=== PATIENT | female | born 1940 | race Caucasian/White ===

== ENCOUNTER 2020-06-28 14:52 | Emergency (ER) | payer MEDICARE, BC, SELFPAY ==
[2020-06-28 16:19] VITALS: BP 168/81; PULSE 85; RESP 16; O2SAT 97; BMI 27.3
[2020-06-28 16:35] VITALS: BP 171/87; PULSE 112; RESP 18; TEMP 36.5; O2SAT 97
--- NOTE | 2020-06-28 16:36 | CT_ITS ---
EXAMINATION: CT HEAD WITHOUT CONTRAST CLINICAL INFORMATION: Dizziness. COMPARISON: Head CT dated 01/06/2019. TECHNIQUE: Contiguous axial imaging was performed from the skull base to vertex without intravenous administration of contrast. This CT examination was performed using dose optimization techniques as appropriate, variously including the following: *Automated exposure control *Adjustment of mA and/or kV according to patient size (this includes techniques or standardized protocols for targeted exams where dose is matched to indication/reason for exam; i.e. extremities or head) *Use of iterative reconstruction technique DLP: 685 mGy-cm FINDINGS: There is no evidence of acute intracranial hemorrhage or territorial infarction. No abnormal mass effect or midline shift is seen. Moran to white matter differentiation is well preserved. No extra-axial fluid collections are identified. The ventricles are normal in size. There is asymmetric hypoattenuation in the white matter in the left centrum semiovale (2:37/56). Additionally, areas of hypoattenuation in the anterior right parietal lobe (3:16/32) and left parietal lobe are noted (2:32/56). These areas of hypoattenuation are unchanged relative to 01/06/2019 examination. There are periventricular white matter changes noted, similar in degree relative to comparison examination. The osseous structures and soft tissues are normal. The mastoid air cells are well aerated. Small polyp in the right maxillary sinus. Scattered ethmoidal air cell opacification. CT/CT head/brain wo con IMPRESSION: No acute intracranial hemorrhage. Areas of asymmetric hypoattenuation in the bilateral parietal lobes and left centrum semiovale which are unchanged relative to comparison 01/06/2019 examination. 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
--- NOTE | 2020-06-28 16:36 | ECG_ITS ---
Test Reason : WEAKNESS Blood Pressure : / mmHG Vent. Rate : 098 BPM Atrial Rate : 098 BPM P-R Int : 150 ms QRS Dur : 088 ms QT Int : 338 ms P-R-T Axes : 037 049 090 degrees QTc Int : 431 ms Sinus rhythm with occasional Premature ventricular complexes Nonspecific ST and T wave abnormality Abnormal ECG No previous ECGs available Referred By: Kathleen Madrigal Electronically Signed By:JONATHAN KULKARNI
--- NOTE | 2020-06-28 16:37 | XR_ITS ---
EXAMINATION: XR CHEST CLINICAL INFORMATION: Weakness. Dizziness. COMPARISON: Chest x-ray 01/03/2019 TECHNIQUE: Frontal portable view of the chest was obtained. 5:06 PM FINDINGS: Lungs are clear. No pulmonary vascular congestion. There is no pleural effusion. The heart size is normal. The cardiac and mediastinal contours are normal. There are calcifications of the thoracic aorta. There are multilevel degenerative changes of dorsal spine. XR/XR chest 1V IMPRESSION: Unremarkable examination.
--- NOTE | 2020-06-28 16:38 | ED_ITS ---
HPI - Weakness General Chief complaint: Weakness Stated complaint: lightheaded Time Seen by Provider: 06/28/20 16:36 Source: patient Mode of arrival: ambulatory Limitations: no limitations History of Present Illness MD Complaint: generalized weakness (feels weak and somewhat lightheaded and feels her head is full ) Onset (ago): day(s) (2) Duration: constant Location: generalized Migration: none Severity: mild Quality: dull Relieving factors: none Exacerbating factors: none Associated symptoms: other (feels clogged but does not have a runny nose) Related Data Previous Rx's Medication Instructions Recorded doxycycline hyclate 100 mg PO BID 7 Days #14 cap 06/28/20 Allergies Allergy/AdvReac Type Severity Reaction Status Date / Time meperidine [From DEMEROL] Allergy Unknown UNKNOWN Verified 06/28/20 17:57 NARCOTIC ANTAGONIST AdvReac Unknown AGITATION Uncoded 06/28/20 17:57 AND MAKES HER ILL Review of Systems Review of Systems: Constitutional : No Weight loss, No Fever, No Chills, No Fatigue, No Malaise ENT/Mouth : No sore throat, No Rhinorrhea, feels her ears are clogges Eyes: No Eye Pain, No Swelling, No Redness Cardiovascular : No Chest Pain, No SOB, No Dyspnea on Exertion, No Orthopnea, No Edema, No Palpitations Respiratory : No Cough, No Sputum, No Wheezing Gastrointestinal : No Nausea, No Vomiting, No Diarrhea, No Constipation, No abdominal Pain, No Hematochezia, No Melena Genitourinary : No Dysuria, No Urinary Frequency, No Hematuria, Musculoskeletal : No joint pain, No Myalgias, No Joint Swelling Skin : No Skin Lesions, No rash Neuro : pos Weakness, No Numbness, pos Dizziness, No Headache Psych : No Anxiety/Panic, No Depression Heme/Lymph: No Bruising, No Bleeding,No Lymphadenopathy Endocrine : No Polyuria, No Polydipsia All other systems reviewed and are negative PMFSH Past Medical History Attestation statement: The following information was validated with the patient. Medical History Elevated cholesterol Hypertension Surgical History H/O section Hx of appendectomy Social History Social History (Updated 06/28/20 @ 16:42 by Kathleen Madrigal DO) Alcohol intake: never Smoking Status: Former smoker Use of substances other than those prescribed or required for medical reasons: No Advance Directives: No Advance Directives Information Provided: Yes Physical Exam Vital Signs: Vital Signs: Last Vital Signs Temp 97.7 F 06/28/20 16:35 Pulse 100 06/28/20 17:45 Resp 18 06/28/20 17:45 BP 162/85 H 06/28/20 17:45 Pulse Ox 97 06/28/20 17:45 Body Mass Index 27.3 Appearance: Alert. Oriented X3. No acute distress. Eyes: Pupils equal, round and reactive to light. ENT: Pharynx normal. Neck: Normal inspection. Neck supple. CVS: Normal heart rate and rhythm. Pulses normal. Respiratory: No respiratory distress. Breath sounds normal. Abdomen: Soft and non-tender. Skin: Skin warm and dry. Normal skin color. Normal skin turgor. Extremities: No lower extremity edema. No calf ttp Neuro: Oriented X 3. No motor deficit. No sensory deficit. Steady gait Course Course Course Narrative: repeat troponin flat, ortho negative per RN, likely ethmoid sinusitis MDM - Weakness MDM Narrative Medical decision making narrative: 79 yo female with hx of HTN here with feeling like her head is full and lightheaded, has a normal neuro exam, doubt stroke symptoms x 2 days, at this time will need labs, EKG, CT head for mass, orthostatic VS, dispo per results and findings. Lab Data Result diagrams: 06/28/20 16:49 06/28/20 16:49 Labs: Lab Results 06/28/20 06/28/20 06/28/20 Range/Units 16:48 16:49 16:49 WBC 7.6 (4.8-10.8) X10*3/uL RBC 3.80 L (4.20-5.50) X10*6/uL Hgb 12.1 (12.0-16.0) g/dl Hct 36.6 L (37-47) % MCV 96.3 (80-98) fL MCH 31.8 (27.0-33.0) pg MCHC 33.1 (31.0-35.0) g/dl RDW 13.0 (11.0-16.0) % Plt Count 253 (160-400) X10*3/uL MPV 8.9 L (9.4-12.3) fL Immature Gran % (Auto) 0.3 (0.0-0.4) % Neut % (Auto) 64.6 (45-73) % Lymph % (Auto) 26.9 (20-40) % [place] % (Auto) 7.0 (2-11) % Eos % (Auto) 0.5 (0-4) % Baso % (Auto) 0.7 (0-2) % Lymph # (Auto) 2.0 (1.2-4.9) X10*3/uL [place] # (Auto) 0.5 (0.1-1.2) X10*3/uL Eos # (Auto) 0.0 (0.0-0.4) X10*3/uL Baso # (Auto) 0.1 (0.0-0.2) X10*3/uL Abs Immat Gran (auto) 0.02 (0.00-0.03) X10*3/uL Absolute Neuts (auto) 4.9 (2.0-8.3) X10*3/uL Absolute Nucleated RBC 0.000 (0.0-0.012) X10*3/uL Nucleated RBC % (auto) 0.0 (0.0-0.2) /100WBC Hold Blue Top Sodium 132 L (135-145) mmol/L Potassium 4.1 (3.3-5.1) mmol/l Chloride 99 (96-108) mmol/L Carbon Dioxide 26 (22-29) mmol/L Anion Gap 11 L (12-20) BUN 18 H (9-16) mg/dL Creatinine 1.10 (0.5-1.4) mg/dL Estim Creat Clear Calc 43.2 Estimated GFR 48 Random Glucose 95 (60-115) mg/dL Calcium 9.5 (8.4-10.2) mg/dL Magnesium (1.6-2.6) mg/dL Total Bilirubin (0.0-1.0) mg/dL Direct Bilirubin (0.0-0.5) mg/dL AST (5-31) U/L ALT (0-31) U/L Alkaline Phosphatase (39-117) U/L Troponin I High Sens (<3.5-17.0) ng/L Total Protein (6.5-8.0) g/dL Albumin (3.5-5.0) g/dL Lipase (8-78) U/L Urine Color YELLOW Urine Appearance CLEAR Urine pH 5.5 (5.0-8.0) Ur Specific [place] 1.015 (1.005-1.025) Urine Protein NEG (NEG-TRACE) MG/DL Urine Glucose (UA) NEG (NEG) MG/DL Urine Ketones NEG (NEG) MG/DL Urine Blood 1+ H (NEG) Urine Nitrite NEG (NEG) Ur Leukocyte Esterase NEG (NEG) Urine RBC 0-2 (0) /HPF Urine WBC 0 (0-4) /HPF Ur Squamous Epith Cells TRACE /LPF Urine Bacteria NONE /LPF Coronavirus (PCR) (Negative) Influenza Type A (PCR) (Negative) Influenza Type B (PCR) (Negative) RSV RNA Qual (PCR) (Negative) 06/28/20 06/28/20 06/28/20 Range/Units 16:49 16:49 16:49 WBC (4.8-10.8) X10*3/uL RBC (4.20-5.50) X10*6/uL Hgb (12.0-16.0) g/dl Hct (37-47) % MCV (80-98) fL MCH (27.0-33.0) pg MCHC (31.0-35.0) g/dl RDW (11.0-16.0) % Plt Count (160-400) X10*3/uL MPV (9.4-12.3) fL Immature Gran % (Auto) (0.0-0.4) % Neut % (Auto) (45-73) % Lymph % (Auto) (20-40) % [place] % (Auto) (2-11) % Eos % (Auto) (0-4) % Baso % (Auto) (0-2) % Lymph # (Auto) (1.2-4.9) X10*3/uL [place] # (Auto) (0.1-1.2) X10*3/uL Eos # (Auto) (0.0-0.4) X10*3/uL Baso # (Auto) (0.0-0.2) X10*3/uL Abs Immat Gran (auto) (0.00-0.03) X10*3/uL Absolute Neuts (auto) (2.0-8.3) X10*3/uL Absolute Nucleated RBC (0.0-0.012) X10*3/uL Nucleated RBC % (auto) (0.0-0.2) /100WBC Hold Blue Top SEE NOTE Sodium (135-145) mmol/L Potassium (3.3-5.1) mmol/l Chloride (96-108) mmol/L Carbon Dioxide (22-29) mmol/L Anion Gap (12-20) BUN (9-16) mg/dL Creatinine (0.5-1.4) mg/dL Estim Creat Clear Calc Estimated GFR Random Glucose (60-115) mg/dL Calcium (8.4-10.2) mg/dL Magnesium 1.8 (1.6-2.6) mg/dL Total Bilirubin 0.7 (0.0-1.0) mg/dL Direct Bilirubin 0.3 (0.0-0.5) mg/dL AST 20 (5-31) U/L ALT 16 (0-31) U/L Alkaline Phosphatase 51 (39-117) U/L Troponin I High Sens 6.7 (<3.5-17.0) ng/L Total Protein 7.4 (6.5-8.0) g/dL Albumin 4.5 (3.5-5.0) g/dL Lipase 33 (8-78) U/L Urine Color Urine Appearance Urine pH (5.0-8.0) Ur Specific [place] (1.005-1.025) Urine Protein (NEG-TRACE) MG/DL Urine Glucose (UA) (NEG) MG/DL Urine Ketones (NEG) MG/DL Urine Blood (NEG) Urine Nitrite (NEG) Ur Leukocyte Esterase (NEG) Urine RBC (0) /HPF Urine WBC (0-4) /HPF Ur Squamous Epith Cells /LPF Urine Bacteria /LPF Coronavirus (PCR) (Negative) Influenza Type A (PCR) (Negative) Influenza Type B (PCR) (Negative) RSV RNA Qual (PCR) (Negative) 06/28/20 06/28/20 Range/Units 16:49 18:52 WBC (4.8-10.8) X10*3/uL RBC (4.20-5.50) X10*6/uL Hgb (12.0-16.0) g/dl Hct (37-47) % MCV (80-98) fL MCH (27.0-33.0) pg MCHC (31.0-35.0) g/dl RDW (11.0-16.0) % Plt Count (160-400) X10*3/uL MPV (9.4-12.3) fL Immature Gran % (Auto) (0.0-0.4) % Neut % (Auto) (45-73) % Lymph % (Auto) (20-40) % [place] % (Auto) (2-11) % Eos % (Auto) (0-4) % Baso % (Auto) (0-2) % Lymph # (Auto) (1.2-4.9) X10*3/uL [place] # (Auto) (0.1-1.2) X10*3/uL Eos # (Auto) (0.0-0.4) X10*3/uL Baso # (Auto) (0.0-0.2) X10*3/uL Abs Immat Gran (auto) (0.00-0.03) X10*3/uL Absolute Neuts (auto) (2.0-8.3) X10*3/uL Absolute Nucleated RBC (0.0-0.012) X10*3/uL Nucleated RBC % (auto) (0.0-0.2) /100WBC Hold Blue Top Sodium (135-145) mmol/L Potassium (3.3-5.1) mmol/l Chloride (96-108) mmol/L Carbon Dioxide (22-29) mmol/L Anion Gap (12-20) BUN (9-16) mg/dL Creatinine (0.5-1.4) mg/dL Estim Creat Clear Calc Estimated GFR Random Glucose (60-115) mg/dL Calcium (8.4-10.2) mg/dL Magnesium (1.6-2.6) mg/dL Total Bilirubin (0.0-1.0) mg/dL Direct Bilirubin (0.0-0.5) mg/dL AST (5-31) U/L ALT (0-31) U/L Alkaline Phosphatase (39-117) U/L Troponin I High Sens 8.8 (<3.5-17.0) ng/L Total Protein (6.5-8.0) g/dL Albumin (3.5-5.0) g/dL Lipase (8-78) U/L Urine Color Urine Appearance Urine pH (5.0-8.0) Ur Specific [place] (1.005-1.025) Urine Protein (NEG-TRACE) MG/DL Urine Glucose (UA) (NEG) MG/DL Urine Ketones (NEG) MG/DL Urine Blood (NEG) Urine Nitrite (NEG) Ur Leukocyte Esterase (NEG) Urine RBC (0) /HPF Urine WBC (0-4) /HPF Ur Squamous Epith Cells /LPF Urine Bacteria /LPF Coronavirus (PCR) NEGATIVE (Negative) Influenza Type A (PCR) NEGATIVE (Negative) Influenza Type B (PCR) NEGATIVE (Negative) RSV RNA Qual (PCR) NEGATIVE (Negative) ECG Data Attestation: I personally reviewed and interpreted this ECG as follows: ECG interpretation date: 06/28/20 ECG interpretation time: 16:59 Interpretation: Rate: 98 Rhythm: NSR Lyle: normal Normal P waves. Normal VANCE. Normal QRS complex. ST T wave : nonspecific, no JASWANT qTC: normal prior studies: no priors no acute ischemia The study has been interpreted contemporaneously by me. . Discharge Plan Discharge Clinical Impression: Nonspecific ST-T wave electrocardiographic changes Acute ethmoidal sinusitis Qualifiers: Recurrence: not specified as recurrent Qualified Code(s): J01.20 - Acute ethmoidal sinusitis, unspecified Patient Disposition: Home, Self-Care Instructions: Sinusitis (ED) Additional Instructions: return to ED for any worsening symptoms or concerns Prescriptions: New doxycycline hyclate 100 mg capsule 100 mg PO BID 7 Days Qty: 14 RF: 0 Referrals: Candace Roman DO [Primary Care Provider] - 2 days (abnormal EKG - outpatient stress test)
[2020-06-28 16:54] LABS: MANUAL DIFF FLAG NO
[2020-06-28 16:56] LABS: Basophils Absolute Auto 0.1 X10*3/uL (0.0-0.2); Basophils Percent Auto 0.7 % (0-2); Eosinophils Percent Auto 0.5 % (0-4); Hematocrit 36.6 % (37-47); Hemoglobin 12.1 g/dl (12.0-16.0); Imm Gran Abs Auto 0.02 X10*3/uL (0.00-0.03); Imm Gran Pct Auto 0.3 % (0.0-0.4); Lymphocytes Percent Auto 26.9 % (20-40); Mean Corpuscular HGB Conc 33.1 g/dl (31.0-35.0); Mean Corpuscular Hemoglobin 31.8 pg (27.0-33.0); Mean Corpuscular Volume 96.3 fL (80-98); Mean Platelet Volume 8.9 fL (9.4-12.3); Monocytes Absolute Auto 0.5 X10*3/uL (0.1-1.2); Neutrophils Absolute Auto 4.9 X10*3/uL (2.0-8.3); Neutrophils Percent Auto 64.6 % (45-73); Platelet Count 253 X10*3/uL (160-400); White Blood Count 7.6 X10*3/uL (4.8-10.8)
[2020-06-28 16:57] LABS: Appearance Urine CLEAR; Color Urine YELLOW; Glucose Urine UA NEG (NEG); Leukocyte Esterase Urine NEG (NEG); Nitrite Urine NEG (NEG); PH 5.5 (5.0-8.0); Specific Gravity - Urine 1.015 (1.005-1.025); Urine Blood 1+ (NEG); Urine Ketones NEG (NEG); Urine Protein NEG (NEG-TRACE)
[2020-06-28 17:03] VITALS: BP 159/78; PULSE 102
[2020-06-28 17:04] VITALS: BP 155/80; PULSE 107
[2020-06-28 17:05] LABS: WBC Urine 0 /HPF (0-4)
[2020-06-28 17:06] VITALS: BP 163/76; PULSE 106
[2020-06-28 17:06] LABS: RBC Urine 0-2 /HPF (0); Squamous Epithelial Cell Urine TRACE /LPF
[2020-06-28 17:29] LABS: Anion Gap 11 (12-20); Blood Urea Nitrogen 18 mg/dL (9-16); Calcium 9.5 mg/dL (8.4-10.2); Carbon Dioxide 26 mmol/L (22-29); Chloride 99 mmol/L (96-108); Creatinine Clr Calc Pharmacy 43.2; Estimated Glomerular Filt Rate 48; Glucose Random 95 mg/dL (60-115); Potassium 4.1 mmol/l (3.3-5.1); Sodium 132 mmol/L (135-145)
[2020-06-28 17:30] LABS: Alanine Aminotransferase 16 U/L (0-31); Albumin Level 4.5 g/dL (3.5-5.0); Alkaline Phosphatase 51 U/L (39-117); Aspartate Amino Transferase 20 U/L (5-31); Bilirubin Direct 0.3 mg/dL (0.0-0.5); Bilirubin Total 0.7 mg/dL (0.0-1.0); Lipase 33 U/L (8-78); Magnesium 1.8 mg/dL (1.6-2.6); Total Protein 7.4 g/dL (6.5-8.0)
[2020-06-28 17:32] LABS: Troponin-I High Sensitivity 6.7 ng/L (<3.5-17.0)
[2020-06-28 17:38] LABS: Influenza A PCR NEGATIVE (Negative); Influenza B PCR NEGATIVE (Negative); Resp Syncy Virus RNA Qual PCR NEGATIVE (Negative); SARS COV2 PCR INHOUSE NEGATIVE (Negative)
[2020-06-28] MEDS: 0.9 % Sodium Chloride 500 ML IV (17:41)
[2020-06-28 17:45] VITALS: BP 162/85; PULSE 100; RESP 18; O2SAT 97
--- NOTE | 2020-06-28 17:56 | PC.NURSE ---
Pt ambulates with steady gait to bathroom. Racheal, daughter, for ride and updates at [phone]
[2020-06-28 19:28] LABS: Troponin-I High Sensitivity 8.8 ng/L (<3.5-17.0)
== END 2020-06-28 19:56 | disposition home or self-care (01) ==
PROVIDERS: Emergency Provider Emergency Medicine; PCP Internal Medicine
DX: J01.20 Acute ethmoidal sinusitis, unspecified (principal); Z20.828 Contact with and (suspected) exposure to other viral communicable diseases; I10 Essential (primary) hypertension; Z87.891 Personal history of nicotine dependence
CPT/HCPCS: 0241U; 36415; 70450; 71045; 80048; 80076; 81001; 83690; 83735; 84484; 85025; 93005; 96360; 99284

== ENCOUNTER 2020-11-02 12:47 | Emergency (ER) | payer MEDICARE, BC, SELFPAY ==
--- NOTE | ~2020-11-02 | US_ITS ---
EXAMINATION: US VENOUS ULTRASOUND WITH DOPPLER LOWER EXTREMITY, BILATERAL CLINICAL INFORMATION: Leg swelling. Evaluate for deep vein thrombosis. COMPARISON: None TECHNIQUE: Ultrasound of the deep veins is performed from the hip to the calf with compression sonography and color and pulse Doppler assessment. Spectral analysis with color-flow imaging is performed. FINDINGS: RIGHT: There is normal venous compression and respiratory variation and augmented flow. The visualized common femoral vein, superficial femoral vein, profunda femoral vein, popliteal vein, and the trifurcation region shows no evidence of deep venous thrombosis. Femoral vein is somewhat difficult to visualize in the lower thigh, but is grossly patent on color Doppler images. No evidence of Soria's cyst. The posterior tibial vein is normal. The deeper veins, such as peroneal veins, are not adequately seen. There is edema of subcutaneous tissues. LEFT: There is normal venous compression and respiratory variation and augmented flow. The visualized common femoral vein, superficial femoral vein, profunda femoral vein, popliteal vein, and the trifurcation region shows no evidence of deep venous thrombosis. Femoral vein is somewhat difficult to visualize in the lower thigh, but is grossly patent on color Doppler images. No evidence of Soria's cyst. Within the leg, the posterior tibial vein is normal. The deeper veins, such as peroneal veins, are not adequately seen. There is edema of subcutaneous tissues. If the patient's symptoms persist, followup ultrasound in 5 days 7 days might be of value to exclude proximal propagation from a non-visualized calf vein. US/US venous duplex LE BI IMPRESSION: There is edema of subcutaneous tissues of each leg. No DVT demonstrated in either lower extremity.
[2020-11-02 12:59] VITALS: BP 172/72; PULSE 111; RESP 18; TEMP 36.8; O2SAT 97; BMI 29.1
[2020-11-02 14:46] LABS: MANUAL DIFF FLAG NO
[2020-11-02 14:49] LABS: Basophils Absolute Auto 0.1 X10*3/uL (0.0-0.2); Basophils Percent Auto 0.7 % (0-2); Eosinophils Percent Auto 0.4 % (0-4); Hemoglobin 11.9 g/dl (12.0-16.0); Imm Gran Abs Auto 0.04 X10*3/uL (0.00-0.03); Imm Gran Pct Auto 0.6 % (0.0-0.4); Lymphocytes Absolute Auto 1.4 X10*3/uL (1.2-4.9); Lymphocytes Percent Auto 20.4 % (20-40); Mean Corpuscular HGB Conc 33.1 g/dl (31.0-35.0); Mean Corpuscular Volume 96.8 fL (80-98); Mean Platelet Volume 9.2 fL (9.4-12.3); Monocytes Absolute Auto 0.5 X10*3/uL (0.1-1.2); Monocytes Percent Auto 6.5 % (2-11); Neutrophils Percent Auto 71.4 % (45-73); Platelet Count 243 X10*3/uL (160-400); Red Blood Count 3.72 X10*6/uL (4.20-5.50); Red Cell Distribution Width 13.1 % (11.0-16.0); White Blood Count 7.1 X10*3/uL (4.8-10.8)
[2020-11-02 15:19] LABS: B Type Natriuretic Peptide 94 pg/mL (<100)
[2020-11-02 16:19] VITALS: BP 191/94; PULSE 114; RESP 16; TEMP 36.6; O2SAT 99
--- NOTE | 2020-11-02 16:22 | ED_ITS ---
HPI - General Adult General Chief complaint: General Medical Stated complaint: SWOLLEN LEGS Time Seen by Provider: 11/02/20 16:22 Source: patient Mode of arrival: ambulatory Limitations: no limitations History of Present Illness HPI narrative: Patient history of hypertension high cholesterol came for increased leg swelling recently had stress test which was negative no history of congestive heart failure no shortness of breath patient has slight memory issues and she is not sure for how long she has leg swelling. Related Data Previous Rx's Medication Instructions Recorded doxycycline hyclate 100 mg PO BID 7 Days #14 cap 06/28/20 hydrochlorothiazide 25 mg PO QAM #30 tab 11/02/20 Allergies Allergy/AdvReac Type Severity Reaction Status Date / Time meperidine [From DEMEROL] Allergy Unknown UNKNOWN Verified 06/28/20 17:57 NARCOTIC ANTAGONIST AdvReac Unknown AGITATION Uncoded 06/28/20 17:57 AND MAKES HER ILL Review of Systems Review of Systems: Constitutional : No Weight loss, No Fever, No Chills ENT/Mouth : No sore throat, No Rhinorrhea Eyes: No Eye Pain, No Swelling Cardiovascular : No Chest Pain, no palpitations Respiratory : No Cough, No Sputum, no shortness of breath Gastrointestinal : no Nausea, No Vomiting, No Diarrhea, No abdominal Pain, no black stools Genitourinary : No Dysuria, No Urinary Frequency Musculoskeletal : No joint pain, No Myalgias, No Joint Swelling Skin : No Skin Lesions, No rash Neuro : No Weakness, No Numbness, No Dizziness, No Headache Psych : No Anxiety/Panic, No Depression Heme/Lymph: No Bruising, No Lymphadenopathy Endocrine : No Polyuria, No Polydipsia All other systems reviewed and are negative [facility] Past Medical History Medical History Elevated cholesterol Hypertension Surgical History H/O section Hx of appendectomy Social History Social History Alcohol intake: never Smoking Status: Former smoker Smoked in Last 30 Days: No Use of substances other than those prescribed or required for medical reasons: No Advance Directives: No Advance Directives Information Provided: Yes Physical Exam Vital Signs: Vital Signs: Last Vital Signs Temp 97.8 F 11/02/20 16:19 Pulse 86 11/02/20 18:17 Resp 16 11/02/20 18:17 BP 158/83 H 11/02/20 18:17 Pulse Ox 99 11/02/20 18:17 Body Mass Index 29.1 Appearance: Alert. Oriented X3. No acute distress. Eyes: PERRLA, No Nystagmus ENT: Pharynx normal. Oral Mucosa moist Neck: Normal inspection. Neck supple. CVS: Normal heart rate and rhythm. Pulses normal. Respiratory: No respiratory distress. Equal air entry bilateral, no wheezing/rales/rhonchi Abdomen: Soft and nontender. Bowel sounds are present, no mass palpable, no CVA tenderness Skin: Skin warm and dry. Normal skin color. Normal skin turgor. Extremities: +++ lower extremity edema. + R calf tenderness Neuro: Oriented X 3. No motor deficit. No sensory deficit.No cerebellar signs , cranial nerves II-XII intact Medical Decision Making MDM Narrative Medical decision making narrative: Patient and leg edema Doppler is negative for DVT BNP is 90 for discharge patient home on hydrochlorothiazide 25 mg daily Lab Data Lab results reviewed: Yes I reviewed the patient's lab results. Result diagrams: 11/02/20 14:30 11/02/20 16:39 Labs: Lab Results 11/02/20 11/02/20 11/02/20 Range/Units 14:30 14:30 16:39 WBC 7.1 (4.8-10.8) X10*3/uL RBC 3.72 L (4.20-5.50) X10*6/uL Hgb 11.9 L (12.0-16.0) g/dl Hct 36.0 L (37-47) % MCV 96.8 (80-98) fL MCH 32.0 (27.0-33.0) pg MCHC 33.1 (31.0-35.0) g/dl RDW 13.1 (11.0-16.0) % Plt Count 243 (160-400) X10*3/uL MPV 9.2 L (9.4-12.3) fL Immature Gran % (Auto) 0.6 H (0.0-0.4) % Neut % (Auto) 71.4 (45-73) % Lymph % (Auto) 20.4 (20-40) % [place] % (Auto) 6.5 (2-11) % Eos % (Auto) 0.4 (0-4) % Baso % (Auto) 0.7 (0-2) % Lymph # (Auto) 1.4 (1.2-4.9) X10*3/uL [place] # (Auto) 0.5 (0.1-1.2) X10*3/uL Eos # (Auto) 0.0 (0.0-0.4) X10*3/uL Baso # (Auto) 0.1 (0.0-0.2) X10*3/uL Abs Immat Gran (auto) 0.04 H (0.00-0.03) X10*3/uL Absolute Neuts (auto) 5.0 (2.0-8.3) X10*3/uL Absolute Nucleated RBC 0.000 (0.0-0.012) X10*3/uL Nucleated RBC % (auto) 0.0 (0.0-0.2) /100WBC PT (10.8-13.0) SEC INR (0.9-1.1) APTT (24.1-38.0) SEC Sodium 134 L (135-145) mmol/L Potassium 4.0 (3.3-5.1) mmol/L Chloride 99 (96-108) mmol/L Carbon Dioxide 24 (22-29) mmol/L Anion Gap 15 (12-20) BUN 22 H (9-16) mg/dL Creatinine 0.97 (0.5-1.4) mg/dL Estim Creat Clear Calc 49.7 Estimated GFR 56 Random Glucose 98 (60-115) mg/dL Calcium 10.4 H D (8.4-10.2) mg/dL Total Bilirubin (0.0-1.0) mg/dL Direct Bilirubin (0.0-0.5) mg/dL AST (5-31) U/L ALT (0-31) U/L Alkaline Phosphatase (39-117) U/L B-Natriuretic Peptide 94 (<100) pg/mL Total Protein (6.5-8.0) g/dL Albumin (3.5-5.0) g/dL 11/02/20 11/02/20 Range/Units 16:39 16:39 WBC (4.8-10.8) X10*3/uL RBC (4.20-5.50) X10*6/uL Hgb (12.0-16.0) g/dl Hct (37-47) % MCV (80-98) fL MCH (27.0-33.0) pg MCHC (31.0-35.0) g/dl RDW (11.0-16.0) % Plt Count (160-400) X10*3/uL MPV (9.4-12.3) fL Immature Gran % (Auto) (0.0-0.4) % Neut % (Auto) (45-73) % Lymph % (Auto) (20-40) % [place] % (Auto) (2-11) % Eos % (Auto) (0-4) % Baso % (Auto) (0-2) % Lymph # (Auto) (1.2-4.9) X10*3/uL [place] # (Auto) (0.1-1.2) X10*3/uL Eos # (Auto) (0.0-0.4) X10*3/uL Baso # (Auto) (0.0-0.2) X10*3/uL Abs Immat Gran (auto) (0.00-0.03) X10*3/uL Absolute Neuts (auto) (2.0-8.3) X10*3/uL Absolute Nucleated RBC (0.0-0.012) X10*3/uL Nucleated RBC % (auto) (0.0-0.2) /100WBC PT 12.1 (10.8-13.0) SEC INR 1.0 (0.9-1.1) APTT 32.5 (24.1-38.0) SEC Sodium (135-145) mmol/L Potassium (3.3-5.1) mmol/L Chloride (96-108) mmol/L Carbon Dioxide (22-29) mmol/L Anion Gap (12-20) BUN (9-16) mg/dL Creatinine (0.5-1.4) mg/dL Estim Creat Clear Calc Estimated GFR Random Glucose (60-115) mg/dL Calcium (8.4-10.2) mg/dL Total Bilirubin 0.8 (0.0-1.0) mg/dL Direct Bilirubin 0.3 (0.0-0.5) mg/dL AST 18 (5-31) U/L ALT 15 (0-31) U/L Alkaline Phosphatase 48 (39-117) U/L B-Natriuretic Peptide (<100) pg/mL Total Protein 7.5 (6.5-8.0) g/dL Albumin 4.5 (3.5-5.0) g/dL Discharge Plan Discharge Clinical Impression: Leg edema Patient Disposition: Home, Self-Care Instructions: Leg Edema (ED) Additional Instructions: Keep the leg elevated. Take water pill in the morning daily. Follow with PCP Prescriptions: New hydrochlorothiazide 25 mg tablet 25 mg PO QAM Qty: 30 RF: 0 No Action doxycycline hyclate 100 mg capsule 100 mg PO BID 7 Days Qty: 14 RF: 0 Interventions: ED Discharge Assessment Last Done: 11/02/20 18:51 Discharge Date/Time: 11/02/20 18:51
[2020-11-02 16:49] LABS: Prothrombin Time 12.1 SEC (10.8-13.0)
[2020-11-02 16:52] LABS: Partial Thromboplastin Time 32.5 SEC (24.1-38.0)
[2020-11-02 17:10] LABS: Anion Gap 15 (12-20); Blood Urea Nitrogen 22 mg/dL (9-16); Calcium 10.4 mg/dL (8.4-10.2); Carbon Dioxide 24 mmol/L (22-29); Chloride 99 mmol/L (96-108); Creatinine Clr Calc Pharmacy 49.7; Estimated Glomerular Filt Rate 56; Glucose Random 98 mg/dL (60-115); Sodium 134 mmol/L (135-145)
[2020-11-02 17:12] LABS: Alanine Aminotransferase 15 U/L (0-31); Albumin Level 4.5 g/dL (3.5-5.0); Alkaline Phosphatase 48 U/L (39-117); Aspartate Amino Transferase 18 U/L (5-31); Bilirubin Direct 0.3 mg/dL (0.0-0.5); Bilirubin Total 0.8 mg/dL (0.0-1.0); Total Protein 7.5 g/dL (6.5-8.0)
[2020-11-02 17:20] VITALS: BP 154/71; PULSE 96; RESP 18; O2SAT 98
[2020-11-02 18:17] VITALS: BP 158/83; PULSE 86; RESP 16; O2SAT 99
== END 2020-11-02 18:51 | disposition home or self-care (01) ==
PROVIDERS: Emergency Provider Internal Medicine; PCP Internal Medicine
DX: R60.0 Localized edema (principal); M79.661 Pain in right lower leg; I10 Essential (primary) hypertension; E78.5 Hyperlipidemia, unspecified
CPT/HCPCS: 36415; 80048; 80076; 83880; 85025; 85610; 85730; 93970; 99284

== ENCOUNTER 2020-11-13 13:13 | Inpatient (IN) | payer MEDICARE, BC, SELFPAY ==
--- NOTE | ~2020-11-13 | XR_ITS ---
EXAMINATION: XR CHEST CLINICAL INFORMATION: Weakness. COMPARISON: Chest 06/28/2020 TECHNIQUE: 2 views of the chest were obtained. FINDINGS: The lungs are well-expanded and clear of acute process. The heart size and pulmonary vascularity is normal. No gross bony abnormality seen. XR/XR chest 2V IMPRESSION: Unremarkable chest exam.
[2020-11-13 13:21] VITALS: BP 138/69; PULSE 102; RESP 22; TEMP 36.5; O2SAT 99; BMI 31.6
--- NOTE | 2020-11-13 13:27 | ECG_ITS ---
Test Reason : ABN HEART RATE Blood Pressure : / mmHG Vent. Rate : 083 BPM Atrial Rate : 083 BPM P-R Int : 144 ms QRS Dur : 090 ms QT Int : 358 ms P-R-T Axes : 033 033 044 degrees QTc Int : 420 ms Sinus rhythm with Premature atrial complexes Nonspecific ST and T wave abnormality Abnormal ECG When compared with ECG of 28-JUN-2020 16:54, Premature ventricular complexes are no longer Present Premature atrial complexes are now Present Nonspecific T wave abnormality now evident in Inferior leads Referred By: Generic ED Physician Electronically Signed By:HARDY VIERA MD
[2020-11-13 14:20] LABS: MANUAL DIFF FLAG NO
[2020-11-13 14:22] LABS: Basophils Absolute Auto 0.1 X10*3/uL (0.0-0.2); Basophils Percent Auto 0.5 % (0-2); Eosinophils Absolute Auto 0.2 X10*3/uL (0.0-0.4); Eosinophils Percent Auto 1.5 % (0-4); Hematocrit 35.1 % (37-47); Hemoglobin 12.4 g/dl (12.0-16.0); Imm Gran Abs Auto 0.13 X10*3/uL (0.00-0.03); Imm Gran Pct Auto 1.3 % (0.0-0.4); Lymphocytes Absolute Auto 1.7 X10*3/uL (1.2-4.9); Lymphocytes Percent Auto 16.5 % (20-40); Mean Corpuscular HGB Conc 35.3 g/dl (31.0-35.0); Mean Corpuscular Hemoglobin 32.7 pg (27.0-33.0); Mean Corpuscular Volume 92.6 fL (80-98); Monocytes Absolute Auto 0.8 X10*3/uL (0.1-1.2); Monocytes Percent Auto 8.1 % (2-11); Neutrophils Absolute Auto 7.3 X10*3/uL (2.0-8.3); Neutrophils Percent Auto 72.1 % (45-73); Platelet Count 274 X10*3/uL (160-400); Red Blood Count 3.79 X10*6/uL (4.20-5.50); Red Cell Distribution Width 12.7 % (11.0-16.0); White Blood Count 10.1 X10*3/uL (4.8-10.8)
[2020-11-13 14:53] LABS: Blood Urea Nitrogen 30 mg/dL (9-16); Calcium 9.2 mg/dL (8.4-10.2); Creatinine Clr Calc Pharmacy 37.2; Estimated Glomerular Filt Rate 38; Glucose Random 95 mg/dL (60-115)
[2020-11-13 15:03] LABS: Anion Gap 13 (12-20); Carbon Dioxide 25 mmol/L (22-29); Chloride 89 mmol/L (96-108); Potassium 3.8 mmol/L (3.3-5.1); Sodium 123 mmol/L (135-145)
[2020-11-13 18:00] VITALS: BP 146/71; PULSE 83; RESP 16; TEMP 36.9; O2SAT 99
--- NOTE | 2020-11-13 18:22 | ED.WEAKNESS ---
HPI - Weakness General Chief complaint: Weakness Stated complaint: weakness Time Seen by Provider: 11/13/20 18:08 Source: patient and family Mode of arrival: ambulatory Limitations: no limitations History of Present Illness HPI Narrative: 80-year-old female with past medical history of hypertension, hyperlipidemia, hypothyroidism, recently seen on 11/02/2020 and given a new prescription for hydrochlorothiazide presents with weakness. States that she has been weak for approximately 2 weeks and has had some bilateral lower extremity swelling. She does feel dizzy at times but denies loss of balance, changes in vision, chest pain or pressure, palpitations, shortness of breath, abdominal pain, abdominal distention, dysuria, hematuria, fevers, chills, nausea, vomiting, diarrhea, constipation, and falls. MD Complaint: generalized weakness Onset (ago): week(s) Duration: constant Location: generalized Severity: moderate Severity scale (1-10): 5 Relieving factors: none Exacerbating factors: exertion Context: new medication Associated symptoms: denies other symptoms Related Data Home Medications Medication Instructions Recorded Confirmed alendronate 70 mg tablet 70 mg PO LASSITER@62911/03/20 11/13/20 cyanocobalamin (vitamin B-12) 1,000 mcg PO DAILY 11/03/20 11/13/20 1,000 mcg tablet levothyroxine 50 mcg tablet 50 mcg PO DAILY@62911/03/20 11/13/20 olmesartan 5 mg tablet 10 mg PO DAILY 11/03/20 11/13/20 pravastatin 40 mg tablet 40 mg PO BEDTIME 11/03/20 11/13/20 calcium citrate-vitamin D3 1 tab PO DAILY 11/13/20 11/13/20 [Citracal plus D] cetirizine 10 mg PO DAILY PRN 11/13/20 11/13/20 hydrochlorothiazide 25 mg PO DAILY 11/13/20 11/13/20 [id number] acid 1 tab PO DAILY 11/13/20 11/13/20 [Centrum Women] [id number] oil [Fish 1 cap PO DAILY 11/13/20 11/13/20 Oil] triamcinolone acetonide 1 spray INTRANASAL DAILY PRN 11/13/20 11/13/20 Allergies Allergy/AdvReac Type Severity Reaction Status Date / Time meperidine [From DEMEROL] Allergy Unknown UNKNOWN Verified 11/13/20 13:20 NARCOTIC ANTAGONIST AdvReac Unknown AGITATION Uncoded 11/03/20 13:03 AND MAKES HER ILL Review of Systems Review of Systems: Constitutional: Positive weakness, No Weight loss, No Fever, No Chills, No Night Sweats, No Fatigue, No Malaise ENT/Mouth: No Hearing loss, No Ear Pain, No Nasal Congestion, No Sinus Pain, No Hoarseness, No sore throat, No Rhinorrhea, No Swallowing Difficulty Eyes: No Eye Pain, No Swelling, No Redness, No Foreign Body, No Discharge, No Vision Changes Cardiovascular: Positive edema, No Chest Pain, No SOB, No Dyspnea on Exertion, No Orthopnea, No Palpitations Respiratory: No Cough, No Sputum, No Wheezing, No Smoke Exposure, No Dyspnea Gastrointestinal: No Nausea, No Vomiting, No Diarrhea, No Constipation, No abdominal Pain, No Hematochezia, No Melena Genitourinary: no irregular bleeding, No Dysuria, No Urinary Frequency, No Hematuria, No Urinary Incontinence, No Urgency, No Flank Pain, No Urinary Flow Changes, No Hesitancy Musculoskeletal: No joint pain, No Myalgias, No Joint Swelling Skin: No Skin Lesions, No rash Neuro: No Weakness, No Numbness, No Paresthesias, No Loss of Consciousness, No Dizziness, No Headache Psych: No Anxiety/Panic, No Depression, No SI/HI/AH/VH, No Social Issues Heme/Lymph: No Bruising, No Bleeding,No Lymphadenopathy Endocrine: No Polyuria, No Polydipsia, No Temperature Intolerance Yes all other systems are reviewed and are negative PMFSH Past Medical History Attestation statement: The following information was validated with the patient. Source: old records reviewed Medical History Elevated cholesterol Hypertension Surgical History H/O section Hx of appendectomy Social History Social History Alcohol intake: never Smoking Status: Former smoker Use of substances other than those prescribed or required for medical reasons: No Advance Directives: No Advance Directives Information Provided: Yes Physical Exam Vital Signs: Vital Signs: Last Vital Signs Temp 98.4 F 11/13/20 20:00 Pulse 80 11/13/20 21:04 Resp 18 11/13/20 21:04 BP 128/90 H 11/13/20 21:04 Pulse Ox 96 11/13/20 21:04 Body Mass Index 31.6 Appearance: Alert. Oriented X3. No acute distress. Head: Normal external exam. Normocephalic. Atraumatic. No Irwin signs noted. No raccoon eyes noted Eyes: PERRLA. EOMI. Conjunctiva and sclera normal. Eyelids normal. ENT: TM's Normal. Pharynx normal. Uvula midline. Moist mucous membranes. No trismus noted. No drooling noted. No muffled voice noted. Neck: Normal inspection. Neck supple. No adenopathy. Thyroid Normal. No meningeal signs. No neck mass noted. CVS: Normal heart rate and rhythm. Heart sound normal. No murmurs noted. Pulses equal to all extremities. Respiratory: No respiratory distress. Painless inspiration. Breath sounds normal. No wheezes/rales/rhonchi noted. Chest nontender. No accessory muscle usage noted or decreased air movement noted. Abdomen: Soft and nontender. Bowel sounds normal in all 4 quadrants. No distention noted. No organomegaly noted. No visible injury noted. Back: No CVA tenderness. Full range of motion noted. Skin: Skin warm and dry. Normal skin color. Normal skin turgor. No rashes/lesions/lacerations noted. Extremities: No lower extremity edema. Extremities exhibit normal range of motion. Extremities nontender. Neuro: cranial nerves 2-12 intact, no focal neural deficits, strength 5/5 to all extremities, No motor deficit. No sensory deficit. NIH Stroke Scale Time: 18:32 Level of Consciousness: Alert Level of Consciousness Questions: Answers both questions correctly Level of Consciousness Commands: Performs both tasks correctly Best Gaze: Normal Visual: No visual loss Facial Palsy: Normal Motor Arm (Right): No drift Motor Arm (Left): No drift Motor Leg (Right): No drift Motor Leg (Left): No drift Limb Ataxia: Absent Sensory: Normal Best Language: No aphasia Dysarthia: Normal Extinction and Inattention: No abnormality Score: 0 Course Course Course Narrative: 80-year-old female presents with weakness for approximately 2 weeks, was seen on 11/02/2020 and given a new prescription for hydrochlorothiazide. Labs were drawn while the patient was in the emergency department waiting room, which indicates a hyponatremia of 123. She does not have hyperglycemia. Will add on serum and urine osmolarity, serum and urine sodium, VBG, serum and urine uric acid. I did discuss critical lab values with family, patient will be admitted once workup is complete. 8:08 p.m. discussion with hospitalist regarding plan of care to admit for hyponatremia. Call out to Nephrology for consult. 8:[address] Pederson, plan is for p.o. fluid restriction at 1200 mL, no IV fluids, 1 g of sodium chloride p.o., serum sodium q.3 hours x2 and repeat in the morning. If serum sodium is above [address] Pederson, these recommendations were discussed with the hospitalist and she agrees with this plan. Consultations Consultation #1: Ana Rosa Time: 20:08 Consultation #2: Nephrology Time: 20:08 MDM - Weakness Differential Diagnosis Differential diagnosis: Likely hypoglycemia, rhabdomyolysis and dehydration Medical Records Attestation: I reviewed the patient's medical records. Lab Data Attestation: I reviewed the patient's lab results. Result diagrams: 11/13/20 14:13 11/13/20 20:45 Labs: Lab Results 11/13/20 11/13/20 11/13/20 Range/Units 14:13 14:13 14:13 WBC 10.1 (4.8-10.8) X10*3/uL RBC 3.79 L (4.20-5.50) X10*6/uL Hgb 12.4 (12.0-16.0) g/dl Hct 35.1 L (37-47) % MCV 92.6 (80-98) fL MCH 32.7 (27.0-33.0) pg MCHC 35.3 H (31.0-35.0) g/dl RDW 12.7 (11.0-16.0) % Plt Count 274 (160-400) X10*3/uL MPV 9.0 L (9.4-12.3) fL Immature Gran % (Auto) 1.3 H (0.0-0.4) % Neut % (Auto) 72.1 (45-73) % Lymph % (Auto) 16.5 L (20-40) % [place] % (Auto) 8.1 (2-11) % Eos % (Auto) 1.5 (0-4) % Baso % (Auto) 0.5 (0-2) % Lymph # (Auto) 1.7 (1.2-4.9) X10*3/uL [place] # (Auto) 0.8 (0.1-1.2) X10*3/uL Eos # (Auto) 0.2 (0.0-0.4) X10*3/uL Baso # (Auto) 0.1 (0.0-0.2) X10*3/uL Abs Immat Gran (auto) 0.13 H (0.00-0.03) X10*3/uL Absolute Neuts (auto) 7.3 (2.0-8.3) X10*3/uL Absolute Nucleated RBC 0.000 (0.0-0.012) X10*3/uL Nucleated RBC % (auto) 0.0 (0.0-0.2) /100WBC VBG pH (7.32-7.43) VBG pCO2 mmHg VBG pO2 mmHg VBG HCO3 (22-26) mmol/L VBG O2 Saturation % VBG Base Excess mmol/L Sodium 123 L (135-145) mmol/L Potassium 3.8 (3.3-5.1) mmol/L Chloride 89 L (96-108) mmol/L Carbon Dioxide 25 (22-29) mmol/L Anion Gap 13 (12-20) BUN 30 H (9-16) mg/dL Creatinine 1.35 (0.5-1.4) mg/dL Estim Creat Clear Calc 37.2 Estimated GFR 38 Random Glucose 95 (60-115) mg/dL Osmolality (281-305) mosm/kg Uric Acid (2.4-5.7) mg/dL Calcium 9.2 D (8.4-10.2) mg/dL Troponin I High Sens 12.0 (<3.5-17.0) ng/L B-Natriuretic Peptide (<100) pg/mL Urine Color Urine Appearance Urine pH (5.0-8.0) Ur Specific [place] (1.005-1.025) Urine Protein (NEG-TRACE) MG/DL Urine Glucose (UA) (NEG) MG/DL Urine Ketones (NEG) MG/DL Urine Blood (NEG) Urine Nitrite (NEG) Ur Leukocyte Esterase (NEG) Urine RBC (0) /HPF Urine WBC (0-4) /HPF Ur Squamous Epith Cells /LPF Urine Bacteria /LPF Urine Osmolality (373-1093) mosm/kg Ur Random Sodium mmol/L Ur Random Uric Acid mg/dL COVID-19 ([facility]) (Negative) COVID-19 Clin Com 11/13/20 11/13/20 11/13/20 Range/Units 18:45 18:45 18:45 WBC (4.8-10.8) X10*3/uL RBC (4.20-5.50) X10*6/uL Hgb (12.0-16.0) g/dl Hct (37-47) % MCV (80-98) fL MCH (27.0-33.0) pg MCHC (31.0-35.0) g/dl RDW (11.0-16.0) % Plt Count (160-400) X10*3/uL MPV (9.4-12.3) fL Immature Gran % (Auto) (0.0-0.4) % Neut % (Auto) (45-73) % Lymph % (Auto) (20-40) % [place] % (Auto) (2-11) % Eos % (Auto) (0-4) % Baso % (Auto) (0-2) % Lymph # (Auto) (1.2-4.9) X10*3/uL [place] # (Auto) (0.1-1.2) X10*3/uL Eos # (Auto) (0.0-0.4) X10*3/uL Baso # (Auto) (0.0-0.2) X10*3/uL Abs Immat Gran (auto) (0.00-0.03) X10*3/uL Absolute Neuts (auto) (2.0-8.3) X10*3/uL Absolute Nucleated RBC (0.0-0.012) X10*3/uL Nucleated RBC % (auto) (0.0-0.2) /100WBC VBG pH (7.32-7.43) VBG pCO2 mmHg VBG pO2 mmHg VBG HCO3 (22-26) mmol/L VBG O2 Saturation % VBG Base Excess mmol/L Sodium (135-145) mmol/L Potassium (3.3-5.1) mmol/L Chloride (96-108) mmol/L Carbon Dioxide (22-29) mmol/L Anion Gap (12-20) BUN (9-16) mg/dL Creatinine (0.5-1.4) mg/dL Estim Creat Clear Calc Estimated GFR Random Glucose (60-115) mg/dL Osmolality 268 L (281-305) mosm/kg Uric Acid 6.2 H (2.4-5.7) mg/dL Calcium (8.4-10.2) mg/dL Troponin I High Sens (<3.5-17.0) ng/L B-Natriuretic Peptide 24 (<100) pg/mL Urine Color Urine Appearance Urine pH (5.0-8.0) Ur Specific [place] (1.005-1.025) Urine Protein (NEG-TRACE) MG/DL Urine Glucose (UA) (NEG) MG/DL Urine Ketones (NEG) MG/DL Urine Blood (NEG) Urine Nitrite (NEG) Ur Leukocyte Esterase (NEG) Urine RBC (0) /HPF Urine WBC (0-4) /HPF Ur Squamous Epith Cells /LPF Urine Bacteria /LPF Urine Osmolality (373-1093) mosm/kg Ur Random Sodium mmol/L Ur Random Uric Acid mg/dL COVID-19 ([facility]) (Negative) COVID-19 Clin Com 11/13/20 11/13/20 11/13/20 Range/Units 18:49 19:27 19:27 WBC (4.8-10.8) X10*3/uL RBC (4.20-5.50) X10*6/uL Hgb (12.0-16.0) g/dl Hct (37-47) % MCV (80-98) fL MCH (27.0-33.0) pg MCHC (31.0-35.0) g/dl RDW (11.0-16.0) % Plt Count (160-400) X10*3/uL MPV (9.4-12.3) fL Immature Gran % (Auto) (0.0-0.4) % Neut % (Auto) (45-73) % Lymph % (Auto) (20-40) % [place] % (Auto) (2-11) % Eos % (Auto) (0-4) % Baso % (Auto) (0-2) % Lymph # (Auto) (1.2-4.9) X10*3/uL [place] # (Auto) (0.1-1.2) X10*3/uL Eos # (Auto) (0.0-0.4) X10*3/uL Baso # (Auto) (0.0-0.2) X10*3/uL Abs Immat Gran (auto) (0.00-0.03) X10*3/uL Absolute Neuts (auto) (2.0-8.3) X10*3/uL Absolute Nucleated RBC (0.0-0.012) X10*3/uL Nucleated RBC % (auto) (0.0-0.2) /100WBC VBG pH 7.44 H (7.32-7.43) VBG pCO2 37 mmHg VBG pO2 38 mmHg VBG HCO3 25 (22-26) mmol/L VBG O2 Saturation 66.0 % VBG Base Excess 1.8 mmol/L Sodium (135-145) mmol/L Potassium (3.3-5.1) mmol/L Chloride (96-108) mmol/L Carbon Dioxide (22-29) mmol/L Anion Gap (12-20) BUN (9-16) mg/dL Creatinine (0.5-1.4) mg/dL Estim Creat Clear Calc Estimated GFR Random Glucose (60-115) mg/dL Osmolality (281-305) mosm/kg Uric Acid (2.4-5.7) mg/dL Calcium (8.4-10.2) mg/dL Troponin I High Sens (<3.5-17.0) ng/L B-Natriuretic Peptide (<100) pg/mL Urine Color YELLOW Urine Appearance CLEAR Urine pH 6.0 (5.0-8.0) Ur Specific [place] 1.010 (1.005-1.025) Urine Protein NEG (NEG-TRACE) MG/DL Urine Glucose (UA) NEG (NEG) MG/DL Urine Ketones NEG (NEG) MG/DL Urine Blood TRACE (NEG) Urine Nitrite NEG (NEG) Ur Leukocyte Esterase NEG (NEG) Urine RBC 0-2 (0) /HPF Urine WBC 0 (0-4) /HPF Ur Squamous Epith Cells TRACE /LPF Urine Bacteria NONE /LPF Urine Osmolality 229 L (373-1093) mosm/kg Ur Random Sodium mmol/L Ur Random Uric Acid mg/dL COVID-19 ([facility]) (Negative) COVID-19 Clin Com 11/13/20 11/13/20 11/13/20 Range/Units 19:27 19:27 20:45 WBC (4.8-10.8) X10*3/uL RBC (4.20-5.50) X10*6/uL Hgb (12.0-16.0) g/dl Hct (37-47) % MCV (80-98) fL MCH (27.0-33.0) pg MCHC (31.0-35.0) g/dl RDW (11.0-16.0) % Plt Count (160-400) X10*3/uL MPV (9.4-12.3) fL Immature Gran % (Auto) (0.0-0.4) % Neut % (Auto) (45-73) % Lymph % (Auto) (20-40) % [place] % (Auto) (2-11) % Eos % (Auto) (0-4) % Baso % (Auto) (0-2) % Lymph # (Auto) (1.2-4.9) X10*3/uL [place] # (Auto) (0.1-1.2) X10*3/uL Eos # (Auto) (0.0-0.4) X10*3/uL Baso # (Auto) (0.0-0.2) X10*3/uL Abs Immat Gran (auto) (0.00-0.03) X10*3/uL Absolute Neuts (auto) (2.0-8.3) X10*3/uL Absolute Nucleated RBC (0.0-0.012) X10*3/uL Nucleated RBC % (auto) (0.0-0.2) /100WBC VBG pH (7.32-7.43) VBG pCO2 mmHg VBG pO2 mmHg VBG HCO3 (22-26) mmol/L VBG O2 Saturation % VBG Base Excess mmol/L Sodium 125 L (135-145) mmol/L Potassium (3.3-5.1) mmol/L Chloride (96-108) mmol/L Carbon Dioxide (22-29) mmol/L Anion Gap (12-20) BUN (9-16) mg/dL Creatinine (0.5-1.4) mg/dL Estim Creat Clear Calc Estimated GFR Random Glucose (60-115) mg/dL Osmolality (281-305) mosm/kg Uric Acid (2.4-5.7) mg/dL Calcium (8.4-10.2) mg/dL Troponin I High Sens (<3.5-17.0) ng/L B-Natriuretic Peptide (<100) pg/mL Urine Color Urine Appearance Urine pH (5.0-8.0) Ur Specific [place] (1.005-1.025) Urine Protein (NEG-TRACE) MG/DL Urine Glucose (UA) (NEG) MG/DL Urine Ketones (NEG) MG/DL Urine Blood (NEG) Urine Nitrite (NEG) Ur Leukocyte Esterase (NEG) Urine RBC (0) /HPF Urine WBC (0-4) /HPF Ur Squamous Epith Cells /LPF Urine Bacteria /LPF Urine Osmolality (373-1093) mosm/kg Ur Random Sodium 40.0 mmol/L Ur Random Uric Acid 12.0 mg/dL COVID-19 ([facility]) (Negative) COVID-19 Clin Com 11/13/20 Range/Units 22:20 WBC (4.8-10.8) X10*3/uL RBC (4.20-5.50) X10*6/uL Hgb (12.0-16.0) g/dl Hct (37-47) % MCV (80-98) fL MCH (27.0-33.0) pg MCHC (31.0-35.0) g/dl RDW (11.0-16.0) % Plt Count (160-400) X10*3/uL MPV (9.4-12.3) fL Immature Gran % (Auto) (0.0-0.4) % Neut % (Auto) (45-73) % Lymph % (Auto) (20-40) % [place] % (Auto) (2-11) % Eos % (Auto) (0-4) % Baso % (Auto) (0-2) % Lymph # (Auto) (1.2-4.9) X10*3/uL [place] # (Auto) (0.1-1.2) X10*3/uL Eos # (Auto) (0.0-0.4) X10*3/uL Baso # (Auto) (0.0-0.2) X10*3/uL Abs Immat Gran (auto) (0.00-0.03) X10*3/uL Absolute Neuts (auto) (2.0-8.3) X10*3/uL Absolute Nucleated RBC (0.0-0.012) X10*3/uL Nucleated RBC % (auto) (0.0-0.2) /100WBC VBG pH (7.32-7.43) VBG pCO2 mmHg VBG pO2 mmHg VBG HCO3 (22-26) mmol/L VBG O2 Saturation % VBG Base Excess mmol/L Sodium (135-145) mmol/L Potassium (3.3-5.1) mmol/L Chloride (96-108) mmol/L Carbon Dioxide (22-29) mmol/L Anion Gap (12-20) BUN (9-16) mg/dL Creatinine (0.5-1.4) mg/dL Estim Creat Clear Calc Estimated GFR Random Glucose (60-115) mg/dL Osmolality (281-305) mosm/kg Uric Acid (2.4-5.7) mg/dL Calcium (8.4-10.2) mg/dL Troponin I High Sens (<3.5-17.0) ng/L B-Natriuretic Peptide (<100) pg/mL Urine Color Urine Appearance Urine pH (5.0-8.0) Ur Specific [place] (1.005-1.025) Urine Protein (NEG-TRACE) MG/DL Urine Glucose (UA) (NEG) MG/DL Urine Ketones (NEG) MG/DL Urine Blood (NEG) Urine Nitrite (NEG) Ur Leukocyte Esterase (NEG) Urine RBC (0) /HPF Urine WBC (0-4) /HPF Ur Squamous Epith Cells /LPF Urine Bacteria /LPF Urine Osmolality (373-1093) mosm/kg Ur Random Sodium mmol/L Ur Random Uric Acid mg/dL COVID-19 ([facility]) Negative (Negative) COVID-19 Clin Com See Note Imaging Data Chest x-ray: Attestation: I personally reviewed and interpreted this imaging study as follows: Radiologist's impression: EXAMINATION: XR CHEST CLINICAL INFORMATION: Weakness. COMPARISON: Chest 06/28/2020 TECHNIQUE: 2 views of the chest were obtained. FINDINGS: The lungs are well-expanded and clear of acute process. The heart size and pulmonary vascularity is normal. No gross bony abnormality seen. XR/XR chest 2V IMPRESSION: Unremarkable chest exam. ECG Data Attestation: I personally reviewed and interpreted this ECG as follows: ECG interpretation date: 11/13/20 ECG interpretation time: 14:06 Prior ECG tracings: available for review Interpretation: Vent. rate 83 BPM DE interval 144 ms QRS duration 90 ms QT/QTc 358/420 ms P-R-T axes 33 33 44 Sinus rhythm with Premature atrial complexes Nonspecific ST and T wave abnormality Abnormal ECG When compared with ECG of 28-JUN-2020 16:54, Premature ventricular complexes are no longer Present Premature atrial complexes are now Present Nonspecific T wave abnormality now evident in Inferior leads Critical Care Time Critical Care Time Critical Care Time: Yes Total Critical Care Time: 65 Attestation: I have personally provided critical care time exclusive of time spent on separately billable procedures. Time includes review of laboratory data, radiology results, discussion with consultants, and monitoring for potential decompensation. Interventions were performed as documented. Discharge Plan Discharge Clinical Impression: Acute hyponatremia Patient Disposition: Admitted As Inpatient
[2020-11-13 18:56] LABS: Venous Blood Gas Refer to POC result
[2020-11-13 18:57] LABS: VBG Base Excess 1.8 mmol/L; VBG HCO3 25 mmol/L (22-26); VBG pCO2 37 mmHg; VBG pH 7.44 (7.32-7.43); VBG pO2 38 mmHg
--- NOTE | 2020-11-13 19:07 | PC.NURSE ---
appears better as compaired to arrival. able to get up to commode with little assist. states i'm a nervous wreck but otherwise no complaints. color has improved. nsr on monitor. aware of plan for admission
[2020-11-13 19:11] LABS: Osmolality, Serum 268 mosm/kg (281-305)
[2020-11-13 19:15] LABS: Uric Acid 6.2 mg/dL (2.4-5.7)
[2020-11-13 19:19] LABS: B Type Natriuretic Peptide 24 pg/mL (<100)
[2020-11-13 19:44] LABS: Glucose Urine UA NEG (NEG); Leukocyte Esterase Urine NEG (NEG); Nitrite Urine NEG (NEG); Urine Blood TRACE (NEG); Urine Ketones NEG (NEG); Urine Protein NEG (NEG-TRACE)
[2020-11-13 19:48] LABS: Appearance Urine CLEAR; Color Urine YELLOW
[2020-11-13 19:54] LABS: RBC Urine 0-2 /HPF (0); Squamous Epithelial Cell Urine TRACE /LPF; WBC Urine 0 /HPF (0-4)
[2020-11-13 20:00] VITALS: BP 116/51; PULSE 74; RESP 16; TEMP 36.9; O2SAT 96
[2020-11-13 20:08] LABS: Osmolality Urine 229 mosm/kg (373-1093)
[2020-11-13] MEDS: Sodium Chloride Tab 1 GM TABLET PO (21:03)
[2020-11-13 21:04] VITALS: BP 128/90; PULSE 80; RESP 18; O2SAT 96
[2020-11-13 21:22] LABS: Sodium 125 mmol/L (135-145)
[2020-11-13 22:45] LABS: COVID-19 Test Negative (Negative); IDNOW Serial# 9DD0AD1C
--- NOTE | 2020-11-13 23:23 | P.HPHOSP_ITS ---
History of Present Illness Date of Service: 11/13/20 Chief Complaint: weakness This is a 80-year-old female with past medical history of hypertension, hyperlipidemia who presents to the hospital with weakness. Patient presents with her daughter at bedside. She reports weakness for the past 1 week, otherwise denies any chest pain, shortness of breath, headache, change in vision. No abdominal pain nausea or vomiting, no diarrhea or constipation. No urinary symptoms. Patient had presented to the hospital on 11/02 with complaints of lower extremity edema and at that time patient was started on hydrochlorothiazide, patient has been taking hydrochlorothiazide for the past 10 days and reports resolution of her lower extremity edema. She denies any orthopnea or PND. To the ED hemodynamically stable with no significant abnormal vitals Labs are significant for WBC count of 10.1, hemoglobin of 12.4, hematocrit 35.1, sodium of 123 (134 on 11/02), serum osmolality of 268, uric acid of 6.2, troponin of 12, urine osmolality of 229, BNP of 24. UA negative. Chest x-ray unremarkable Past medical history as below on confirmed as patient Review of Systems 2 Review of Systems: Yes all other systems are reviewed and are negative [facility] Medical History (Updated 11/14/20 @ 07:07 by Endy Oseguera MD) Elevated cholesterol Hypertension Hypothyroidism Surgical History H/O section Hx of appendectomy Social History Household Members: None Housing: House Do you presently have visiting nurse or other home services: No Alcohol intake: never Smoking Status: Former smoker Second Hand Smoke Exposure: No Use of substances other than those prescribed or required for medical reasons: No Have you been hit, kicked, punched, or otherwise hurt by someone within the past year? If so, by whom?: No Do you feel safe in your current relationship?: No Is there a partner from a previous relationship who is making you feel unsafe now?: No Are you made to feel afraid or neglected: No Spiritual Healthcare Practices: anabaptist Cultural Healthcare Practices: would accept blood transfusions Advance Directives: No Advance Directives Information Provided: Yes Do you have thoughts of harming others: None Do you have a plan to hurt others: No Plan Meds Allergies Allergy/AdvReac Type Severity Reaction Status Date / Time meperidine [From DEMEROL] Allergy Unknown UNKNOWN Verified 11/13/20 13:20 NARCOTIC ANTAGONIST AdvReac Unknown AGITATION Uncoded 11/03/20 13:03 AND MAKES HER ILL Active Medications: Current Medications Generic Name Dose Route Start Last Admin Trade Name Queenie PRN Reason Stop Dose Admin Pharmacy Consult 1 each 11/13/20 20:56 Consult Rx Perform Med Rec MISCELLANE ONCE PRN Consult order Home Medications Medication Instructions Recorded Confirmed Last Taken Type alendronate 70 mg tablet 70 mg PO LASSITER@0611/03/20 11/13/20 Unknown History cyanocobalamin (vitamin B-12) 1,000 mcg PO DAILY 11/03/20 11/13/20 11/13/20 History 1,000 mcg tablet levothyroxine 50 mcg tablet 50 mcg PO DAILY@0630 11/03/20 11/13/20 11/13/20 His tory olmesartan 5 mg tablet 10 mg PO DAILY 11/03/20 11/13/20 11/13/20 History pravastatin 40 mg tablet 40 mg PO BEDTIME 11/03/20 11/13/20 11/12/20 History calcium citrate-vitamin D3 1 tab PO DAILY 11/13/20 11/13/20 Unknown History [Citracal plus D] cetirizine 10 mg PO DAILY PRN 11/13/20 11/13/20 Unknown History hydrochlorothiazide 25 mg PO DAILY 11/13/20 11/13/20 11/13/20 History rkjqviljogwi-tzbu-whfyr acid 1 tab PO DAILY 11/13/20 11/13/20 11/13/20 History [Centrum Women] zwdhs-8q-nab-epa-fish oil [Fish 1 cap PO DAILY 11/13/20 11/13/20 11/13/20 History Oil] triamcinolone acetonide 1 spray INTRANASAL DAILY PRN 11/13/20 11/13/20 Unknown History Physical Exam Vital Signs and Narrative: Vital Signs: Last Vital Signs Temp 98.4 F 11/13/20 20:00 Pulse 80 11/13/20 21:04 Resp 18 11/13/20 21:04 BP 128/90 H 11/13/20 21:04 Pulse Ox 96 11/13/20 21:04 Body Mass Index 31.6 Const: General: cooperative and no acute distress Orientation/consciousne ss: patient oriented x3 Eyes: General: appearance normal, both eyes and all related structures Resp: Effort & Inspection: normal respiratory effort and able to speak in complete sentences Auscultation: clear to auscultation bilaterally Cardio: Rate: regular rate Rhythm: regular rhythm GI: Palpation (GI): Soft to palpation Auscultation: normal bowel sounds Skin: General skin exam: no rashes or lesions noted Neuro: General: patient oriented x3 Cognition (Neuro): normal cognition Extrem: General: Yes normal to inspection and Yes no pedal edema Results Labs CBC and Chem 7: 11/13/20 14:13 11/14/20 00:19 Labs: Laboratory Results - last 24 hr 11/13/20 11/13/20 11/13/20 14:13 14:13 14:13 MCV 92.6 MCH 32.7 MCHC 35.3 H RDW 12.7 Plt Count 274 MPV 9.0 L Immature Gran % (Auto) 1.3 H Neut % (Auto) 72.1 Lymph % (Auto) 16.5 L [place] % (Auto) 8.1 Eos % (Auto) 1.5 Baso % (Auto) 0.5 Lymph # (Auto) 1.7 [place] # (Auto) 0.8 Eos # (Auto) 0.2 Baso # (Auto) 0.1 Abs Immat Gran (auto) 0.13 H Absolute Neuts (auto) 7.3 Absolute Nucleated RBC 0.000 Nucleated RBC % (auto) 0.0 VBG pH VBG pCO2 VBG pO2 VBG HCO3 VBG O2 Saturation VBG Base Excess Anion Gap 13 Estim Creat Clear Calc 37.2 Estimated GFR 38 Random Glucose 95 Osmolality Uric Acid Calcium 9.2 D Troponin I High Sens 12.0 B-Natriuretic Peptide Urine Color Urine Appearance Urine pH Ur Specific [place] Urine Protein Urine Glucose (UA) Urine Ketones Urine Blood Urine Nitrite Ur Leukocyte Esterase Urine RBC Urine WBC Ur Squamous Epith Cells Urine Bacteria Urine Osmolality Ur Random Sodium Ur Random Uric Acid COVID-19 ([place]) COVID-19 Clin Com 11/13/20 11/13/20 11/13/20 18:45 18:45 18:45 MCV MCH MCHC RDW Plt Count MPV Immature Gran % (Auto) Neut % (Auto) Lymph % (Auto) [place] % (Auto) Eos % (Auto) Baso % (Auto) Lymph # (Auto) [place] # (Auto) Eos # (Auto) Baso # (Auto) Abs Immat Gran (auto) Absolute Neuts (auto) Absolute Nucleated RBC Nucleated RBC % (auto) VBG pH VBG pCO2 VBG pO2 VBG HCO3 VBG O2 Saturation VBG Base Excess Anion Gap Estim Creat Clear Calc Estimated GFR Random Glucose Osmolality 268 L Uric Acid 6.2 H Calcium Troponin I High Sens B-Natriuretic Peptide 24 Urine Color Urine Appearance Urine pH Ur Specific [place] Urine Protein Urine Glucose (UA) Urine Ketones Urine Blood Urine Nitrite Ur Leukocyte Esterase Urine RBC Urine WBC Ur Squamous Epith Cells Urine Bacteria Urine Osmolality Ur Random Sodium Ur Random Uric Acid COVID-19 ([place]) COVID-19 [employer] 11/13/20 11/13/20 11/13/20 18:49 19:27 19:27 MCV MCH MCHC RDW Plt Count MPV Immature Gran % (Auto) Neut % (Auto) Lymph % (Auto) [place] % (Auto) Eos % (Auto) Baso % (Auto) Lymph # (Auto) [place] # (Auto) Eos # (Auto) Baso # (Auto) Abs Immat Gran (auto) Absolute Neuts (auto) Absolute Nucleated RBC Nucleated RBC % (auto) VBG pH 7.44 H VBG pCO2 37 VBG pO2 38 VBG HCO3 25 VBG O2 Saturation 66.0 VBG Base Excess 1.8 Anion Gap Estim Creat Clear Calc Estimated GFR Random Glucose Osmolality Uric Acid Calcium Troponin I High Sens B-Natriuretic Peptide Urine Color YELLOW Urine Appearance CLEAR Urine pH 6.0 Ur Specific [place] 1.010 Urine Protein NEG Urine Glucose (UA) NEG Urine Ketones NEG Urine Blood TRACE Urine Nitrite NEG Ur Leukocyte Esterase NEG Urine RBC 0-2 Urine WBC 0 Ur Squamous Epith Cells TRACE Urine Bacteria NONE Urine Osmolality 229 L Ur Random Sodium Ur Random Uric Acid COVID-19 ([place]) COVID-19 [employer] 11/13/20 11/13/20 11/13/20 19:27 19:27 22:20 MCV MCH MCHC RDW Plt Count MPV Immature Gran % (Auto) Neut % (Auto) Lymph % (Auto) [place] % (Auto) Eos % (Auto) Baso % (Auto) Lymph # (Auto) [place] # (Auto) Eos # (Auto) Baso # (Auto) Abs Immat Gran (auto) Absolute Neuts (auto) Absolute Nucleated RBC Nucleated RBC % (auto) VBG pH VBG pCO2 VBG pO2 VBG HCO3 VBG O2 Saturation VBG Base Excess Anion Gap Estim Creat Clear Calc Estimated GFR Random Glucose Osmolality Uric Acid Calcium Troponin I High Sens B-Natriuretic Peptide Urine Color Urine Appearance Urine pH Ur Specific [place] Urine Protein Urine Glucose (UA) Urine Ketones Urine Blood Urine Nitrite Ur Leukocyte Esterase Urine RBC Urine WBC Ur Squamous Epith Cells Urine Bacteria Urine Osmolality Ur Random Sodium 40.0 Ur Random Uric Acid 12.0 COVID-19 ([place]) Negative COVID-19 Clin Com See Note Imaging Radiologist's Impressions: Impressions Chest X-Ray 11/13/20 13:49 IMPRESSION: Unremarkable chest exam. Assessment and Plan (1) Acute hyponatremia: Status: Acute (2) Weakness: Status: Acute 80-year-old female with past medical history of hypertension presents to the hospital with complaints of weakness found to have hyponatremia # hyponatremia - most likely 2/2 HCTZ - was in the low 130s on 11/02 presents today with na od 123 - no neurological deficits - nephrology consulted - pt to be placed on fluid restriction of 1200cc - give 1 gram of sodium chloride tab - bmp q3 hrs x2, and then qam - dicontinue HCTz - further nephro recommendation appreciated # Weakness - most likely 2/2 hyponatremia - no evidence of infection # HTN - stable - continue olmesartan # Hypothyroidism - continue levothyroxine DVT ppx: lovenox
[2020-11-14] VITALS (10 sets, daily range): BP systolic 101–140; BP diastolic 52–63; PULSE 69–123; RESP 16–18; TEMP 36.3–36.9; O2SAT 94–98; BMI 31.4
[2020-11-14 00:50] LABS: Sodium 127 mmol/L (135-145)
[2020-11-14] MEDS: Enoxaparin Sodium 40 MG/0.4 ML SYRINGE SUBCUT (02:28)
[2020-11-14] MEDS: 0.9 % Sodium Chloride Flush 3 ML SYRINGE IVFLUSH ×4 (02:28→21:04)
[2020-11-14] MEDS: Levothyroxine Sodium 50 MCG TABLET PO (05:45)
[2020-11-14 08:45] LABS: Anion Gap 12 (12-20); Blood Urea Nitrogen 17 mg/dL (9-16); Calcium 9.1 mg/dL (8.4-10.2); Carbon Dioxide 27 mmol/L (22-29); Chloride 93 mmol/L (96-108); Creatinine Clr Calc Pharmacy 53.2; Estimated Glomerular Filt Rate 58; Glucose Random 84 mg/dL (60-115); Potassium 4.3 mmol/L (3.3-5.1); Sodium 128 mmol/L (135-145)
--- NOTE | 2020-11-14 09:00 | MHC.CM.PN ---
Addendum entered by Greer Ace 11/14/20 14:54: a REFERRAL TO [facility] HAS BEEN MADE AT PTS REQUEST Original Note: IMM 11/14/20 Female DX HYPO Na+She lives alone and is independent. A HCP has been documented Copies provided to the Pt. HCP also placed on chart. DP home no services family transport. CM will follow to assess for change in discharge needs.
[2020-11-14] MEDS: Valsartan 40 MG TABLET PO (09:30)
[2020-11-14] MEDS: Cyanocobalamin (Vitamin B-12) 1,000 MCG TABLET 1000 MCG PO (09:30)
--- NOTE | 2020-11-14 16:53 | HO.PM.IMPN ---
Subjective Subjective Date of Service: 11/14/20 Interval History: Hyponatremia Review of Systems Patient denies any chest pain or shortness of breath or abdominal pain or fever or chills or cough or phlegm. Feels slightly anxious. Physical Exam Vital Signs: Vital Signs: Last Vital Signs Temp 98.5 F 11/14/20 15:10 Pulse 79 11/14/20 15:10 Resp 18 11/14/20 15:10 BP 115/59 L 11/14/20 15:10 Pulse Ox 98 11/14/20 15:10 Body Mass Index 31.4 Physical exam: Cvs: [id number], [id number] , no murmur res: clear to auscultation ,no rhonchii or wheezing abd: no rebound or guarding ,nt, bs present. ext pulses present , no cyanosis neuro: axo3 , nonfocal. Objective Data Current Medications Generic Name Dose Route Start Last Admin Trade Name Freq PRN Reason Stop Dose Admin Acetaminophen 650 mg 11/14/20 01:08 Acetaminophen 325 Mg Tablet PO Q6H PRN Pain, Mild (Pain Scale 1-3) Cyanocobalamin 1,000 mcg 11/14/20 09:00 11/14/20 09:30 Cyanocobalamin (Vitamin B-12) 1,000 Mcg Tablet PO 1,000 mcg DAILY YUDY Administration Docusate Sodium 100 mg 11/14/20 01:08 Docusate Sodium 100 Mg Capsule PO DAILY PRN Constipation Enoxaparin Sodium 40 mg 11/14/20 02:00 11/14/20 02:28 Enoxaparin Sodium 40 Mg/0.4 Ml Syringe SUBCUT 40 mg Q24H YUDY Administration Fluticasone Propionate 1 spray 11/14/20 02:17 Fluticasone Propionate Nasal 16 Gm [place] NOSTRIL-B DAILY PRN allergies Levothyroxine Sodium 50 mcg 11/14/20 06:30 11/14/20 05:45 Levothyroxine Sodium 50 Mcg Tablet PO 50 mcg DAILY@0630 YUDY Administration Loratadine 10 mg 11/14/20 01:08 Loratadine 10 Mg Tablet PO DAILY PRN Allergy Symptoms Multivitamins/Minerals 1 tab 11/14/20 09:00 11/14/20 09:30 Multivitamin With Minerals Tablet PO 1 tab DAILY YUDY Administration Ondansetron HCl 4 mg 11/14/20 01:08 Ondansetron Hcl 4 Mg/2 Ml Vial IVPUSH Q8H PRN Nausea and Vomiting Pharmacy Consult 1 each 11/13/20 20:56 Consult Rx Perform Med Rec MISCELLANE ONCE PRN Consult order Pravastatin Sodium 40 mg 11/14/20 21:00 Pravastatin Sodium 40 Mg Tablet PO BEDTIME YUDY Sodium Chloride 3 ml 11/14/20 01:08 11/14/20 16:35 0.9 % Sodium Chloride Flush 3 Ml Syringe IVFLUSH 3 ml QSHIFT YUDY Administration Valsartan 40 mg 11/14/20 09:00 11/14/20 09:30 Valsartan 40 Mg Tablet PO 40 mg DAILY YUDY Administration Labs CBC & Chem 7: 11/13/20 14:13 11/14/20 07:44 Assessment and Plan (1) Acute hyponatremia: Status: Acute (2) Weakness: Status: Acute Assessment and Plan: 80-year-old female with past medical history of hypertension presents to the hospital with complaints of weakness found to have hyponatremia 1. hyponatremia: noted to be thought most likely 2/2 HCTZ - was in the low 130s on 11/02 presents today with na od 123 - no neurological deficits Fluid restrictions, nephrology evaluation followed, with fluid restriction only the sodium is coming to 128 range. Will continue current management and monitor sodium in the morning 2.Weakness - most likely 2/2 hyponatremia Seems improving as per the patient. Continue to monitor 3. HTN - stable - continue olmesartan 4. Hypothyroidism - continue levothyroxine
--- NOTE | 2020-11-14 17:36 | PM.CNNEP ---
History of Present Illness Reason for Consult Consult date: 11/14/20 Reason for consult: Hyponatremia Chief Complaint Chief complaint: Hyponatremia History of Present Illness Narrative: Louisa is a 80-year-old female with past medical history of low sodium who presents to the hospital with weakness. Patient presents with her daughter at bedside. She reports weakness for the past 1 week, otherwise denies any chest pain, shortness of breath, headache, change in vision. No abdominal pain nausea or vomiting, no diarrhea or constipation. No urinary symptoms. She had presented to the hospital on 11/02 with complaints of lower extremity edema and at that time patient was started on hydrochlorothiazide, with resolution of her lower extremity edema. She denies any orthopnea or PND. In the ER her sodium was 123 (134 on 11/02). She was admitted for management . Nephrology was consulted to assist in her clinical care Review of Systems Review of Systems Yes all other systems are reviewed and are negative PMFSH Past Medical History Medical History (Updated 11/14/20 @ 17:41 by Shun Haddad MD) Elevated cholesterol Hypertension Hypothyroidism Surgical History Surgical History H/O section Hx of appendectomy Social History Social History Household Members: None Housing: House Do you presently have visiting nurse or other home services: No Alcohol intake: never Smoking Status: Former smoker Second Hand Smoke Exposure: No Use of substances other than those prescribed or required for medical reasons: No Currently Displaying Signs/Symptoms of Drug Intoxication Withdrawal: No Have you been hit, kicked, punched, or otherwise hurt by someone within the past year? If so, by whom?: No Do you feel safe in your current relationship?: No Is there a partner from a previous relationship who is making you feel unsafe now?: No Are you made to feel afraid or neglected: No Spiritual Healthcare Practices: roman catholic Cultural Healthcare Practices: would accept blood transfusions Advance Directives: No Advance Directives Information Provided: Yes Do you have thoughts of harming others: None Do you have a plan to hurt others: No Plan service: No Current occupational status: retired Meds Allergies Allergy/AdvReac Type Severity Reaction Status Date / Time meperidine [From DEMEROL] Allergy Unknown UNKNOWN Verified 11/13/20 13:20 NARCOTIC ANTAGONIST AdvReac Unknown AGITATION Uncoded 11/03/20 13:03 AND MAKES HER ILL Active Medications: Current Medications Generic Name Dose Route Start Last Admin Trade Name Queenie PRN Reason Stop Dose Admin Acetaminophen 650 mg 11/14/20 01:08 Acetaminophen 325 Mg Tablet PO Q6H PRN Pain, Mild (Pain Scale 1-3) Cyanocobalamin 1,000 mcg 11/14/20 09:00 11/14/20 09:30 Cyanocobalamin (Vitamin B-12) 1,000 Mcg Tablet PO 1,000 mcg DAILY YUDY Administration Docusate Sodium 100 mg 11/14/20 01:08 Docusate Sodium 100 Mg Capsule PO DAILY PRN Constipation Enoxaparin Sodium 40 mg 11/14/20 02:00 11/14/20 02:28 Enoxaparin Sodium 40 Mg/0.4 Ml Syringe SUBCUT 40 mg Q24H YUDY Administration Fluticasone Propionate 1 spray 11/14/20 02:17 Fluticasone Propionate Nasal 16 Gm [place] NOSTRIL-B DAILY PRN allergies Levothyroxine Sodium 50 mcg 11/14/20 06:30 11/14/20 05:45 Levothyroxine Sodium 50 Mcg Tablet PO 50 mcg DAILY@0630 YUDY Administration Loratadine 10 mg 11/14/20 01:08 Loratadine 10 Mg Tablet PO DAILY PRN Allergy Symptoms Multivitamins/Minerals 1 tab 11/14/20 09:00 11/14/20 09:30 Multivitamin With Minerals Tablet PO 1 tab DAILY YUDY Administration Ondansetron HCl 4 mg 11/14/20 01:08 Ondansetron Hcl 4 Mg/2 Ml Vial IVPUSH Q8H PRN Nausea and Vomiting Pharmacy Consult 1 each 11/13/20 20:56 Consult Rx Perform Med Rec MISCELLANE ONCE PRN Consult order Pravastatin Sodium 40 mg 11/14/20 21:00 Pravastatin Sodium 40 Mg Tablet PO BEDTIME [facility] Sodium Chloride 3 ml 11/14/20 01:08 11/14/20 16:35 0.9 % Sodium Chloride Flush 3 Ml Syringe IVFLUSH 3 ml QSHIFT YUDY Administration Valsartan 40 mg 11/14/20 09:00 11/14/20 09:30 Valsartan 40 Mg Tablet PO 40 mg DAILY YUDY Administration Home Medications Medication Instructions Recorded Confirmed Last Taken Type alendronate 70 mg tablet 70 mg PO LASSITER@0630 11/03/20 11/13/20 Unknown History cyanocobalamin (vitamin B-12) 1,000 mcg PO DAILY 11/03/20 11/13/20 11/13/20 History 1,000 mcg tablet levothyroxine 50 mcg tablet 50 mcg PO DAILY@0630 11/03/20 11/13/20 11/13/20 History olmesartan 5 mg tablet 10 mg PO DAILY 11/03/20 11/13/20 11/13/20 History pravastatin 40 mg tablet 40 mg PO BEDTIME 11/03/20 11/13/20 11/12/20 History calcium citrate-vitamin D3 1 tab PO DAILY 11/13/20 11/13/20 Unknown History [Citracal plus D] cetirizine 10 mg PO DAILY PRN 11/13/20 11/13/20 Unknown History hydrochlorothiazide 25 mg PO DAILY 11/13/20 11/13/20 11/13/20 History pzezvcozdjpi-wmvv-kgsyw acid 1 tab PO DAILY 11/13/20 11/13/20 11/13/20 History [Centrum Women] iyybt-6m-bhb-epa-fish oil [Fish 1 cap PO DAILY 11/13/20 11/13/20 11/13/20 History Oil] triamcinolone acetonide 1 spray INTRANASAL DAILY PRN 11/13/20 11/13/20 Unknown History Physical Exam Vital Signs: Last Vital Signs Temp 98.5 F 11/14/20 15:10 Pulse 79 11/14/20 15:10 Resp 18 11/14/20 15:10 BP 115/59 L 11/14/20 15:10 Pulse Ox 98 11/14/20 15:10 Body Mass Index 31.4 Const General: No acute distress Orientation/consciousness: patient oriented x3 Neck Neck: Yes supple Resp Auscultation: diminished lung sounds Cardio Jugular venous distension: no JVD GI Palpation (GI): Soft to palpation Neuro General: patient oriented x3 and moves all extremities Results Lab Results Result Diagrams: 11/13/20 14:13 11/14/20 07:44 Lab results: Chemistry 11/13/20 11/13/20 11/13/20 14:13 19:27 20:45 Sodium 123 L 125 L Potassium 3.8 Carbon Dioxide 25 BUN 30 H Creatinine 1.35 Calcium 9.2 D Ur Random Uric Acid 12.0 11/14/20 11/14/20 00:19 07:44 Sodium 127 L 128 L Potassium 4.3 Carbon Dioxide 27 BUN 17 H Creatinine 0.94 Calcium 9.1 Ur Random Uric Acid Hematology 11/13/20 14:13 WBC 10.1 Hgb 12.4 Plt Count 274 Urinalysis 11/13/20 19:27 Urine Color YELLOW Urine Appearance CLEAR Urine pH 6.0 Ur Specific [place] 1.010 Urine Protein NEG Urine Glucose (UA) NEG Urine Ketones NEG Urine Blood TRACE Urine Nitrite NEG Ur Leukocyte Esterase NEG Urine RBC 0-2 Urine WBC 0 Ur Squamous Epith Cells TRACE Urine Studies 11/13/20 19:27 Urine Osmolality 229 L Assessment and Plan (1) Acute hyponatremia: Problem details: Hyponatremia likely multifactorial Likely has underlying excess ADH Compounded by recent HCTZ HCTZ discontinued; Serum sodium improving No indication for hypertonic saline/PO Urea now Fluid restriction; Labs AM. Shall closely follow up Status: Acute Procedures Date of Service Date of Service: 11/14/20
[2020-11-14] MEDS: Pravastatin Sodium 40 MG TABLET PO (21:04)
[2020-11-15] VITALS (7 sets, daily range): BP systolic 101–135; BP diastolic 57–77; PULSE 71–105; RESP 15–20; TEMP 36.4–37.1; O2SAT 92–97
--- NOTE | 2020-11-15 | ECG_ITS ---
Test Reason : TACHY Blood Pressure : / mmHG Vent. Rate : 108 BPM Atrial Rate : 108 BPM P-R Int : 140 ms QRS Dur : 090 ms QT Int : 328 ms P-R-T Axes : 037 039 095 degrees QTc Int : 439 ms Sinus tachycardia with occasional Premature ventricular complexes Nonspecific ST abnormality Abnormal ECG When compared with ECG of 13-NOV-2020 14:06, Premature ventricular complexes are now Present Premature atrial complexes are no longer Present Referred By: Jayesh Almaguer Electronically Signed By:HARDY VIERA MD
[2020-11-15] MEDS: Enoxaparin Sodium 40 MG/0.4 ML SYRINGE SUBCUT (02:55)
[2020-11-15] MEDS: Levothyroxine Sodium 50 MCG TABLET PO (05:31)
[2020-11-15 07:07] LABS: Anion Gap 11 (12-20); Blood Urea Nitrogen 26 mg/dL (9-16); Calcium 9.1 mg/dL (8.4-10.2); Carbon Dioxide 27 mmol/L (22-29); Chloride 96 mmol/L (96-108); Creatinine Clr Calc Pharmacy 45.9; Estimated Glomerular Filt Rate 49; Glucose Random 83 mg/dL (60-115); Potassium 4.2 mmol/L (3.3-5.1); Sodium 130 mmol/L (135-145)
[2020-11-15] MEDS: 0.9 % Sodium Chloride Flush 3 ML SYRINGE IVFLUSH (07:47)
[2020-11-15] MEDS: Cyanocobalamin (Vitamin B-12) 1,000 MCG TABLET 1000 MCG PO (09:38)
[2020-11-15] MEDS: Valsartan 40 MG TABLET PO (09:38)
[2020-11-15] MEDS: 0.9 % Sodium Chloride 1,000 ML 100 ML IV (12:20)
--- NOTE | 2020-11-15 12:43 | MHC.CM.PN ---
DP Female 80 DX Hyponatremia At discharge the Pt would like [facility] for medication management education, as well as Disease management teaching. Family will provide transportation. An EKG is ordered. Nephrology has been consulted. CM will follow.
--- NOTE | 2020-11-15 15:33 | HO.PM.IMPN ---
Subjective Subjective Date of Service: 11/15/20 Interval History: feeling weak, orthostatis Review of Systems still feels weak, denies any chest pain or shortness of breath or abdominal pain or fever or chills Physical Exam Vital Signs: Vital Signs: Last Vital Signs Temp 97.6 F 11/15/20 11:25 Pulse 105 H 11/15/20 11:25 Resp 20 11/15/20 11:25 BP 101/57 L 11/15/20 11:25 Pulse Ox 94 11/15/20 11:25 Body Mass Index 31.4 Physio: Cvs: [id number], [id number] , no murmur res: clear to auscultation ,no rhonchii or wheezing abd: no rebound or guarding ,nt, bs present. ext pulses present , no cyanosis neuro: axo3 , nonfocal. Objective Data Current Medications Generic Name Dose Route Start Last Admin Trade Name Freq PRN Reason Stop Dose Admin Acetaminophen 650 mg 11/14/20 01:08 Acetaminophen 325 Mg Tablet PO Q6H PRN Pain, Mild (Pain Scale 1-3) Cyanocobalamin 1,000 mcg 11/14/20 09:00 11/15/20 09:38 Cyanocobalamin (Vitamin B-12) 1,000 Mcg Tablet PO 1,000 mcg DAILY YUDY Administration Docusate Sodium 100 mg 11/14/20 01:08 Docusate Sodium 100 Mg Capsule PO DAILY PRN Constipation Enoxaparin Sodium 40 mg 11/14/20 02:00 11/15/20 02:55 Enoxaparin Sodium 40 Mg/0.4 Ml Syringe SUBCUT 40 mg Q24H YUDY Administration Fluticasone Propionate 1 spray 11/14/20 02:17 Fluticasone Propionate Nasal 16 Gm [place] NOSTRIL-B DAILY PRN allergies Sodium Chloride 1,000 mls @ 100 mls/hr 11/15/20 11:30 11/15/20 12:20 Ns IV 11/15/20 21:29 100 mls/hr .Q10H YUDY Administration Levothyroxine Sodium 50 mcg 11/14/20 06:30 11/15/20 05:31 Levothyroxine Sodium 50 Mcg Tablet PO 50 mcg DAILY@0630 YUDY Administration Loratadine 10 mg 11/14/20 01:08 Loratadine 10 Mg Tablet PO DAILY PRN Allergy Symptoms Multivitamins/Minerals 1 tab 11/14/20 09:00 11/15/20 09:38 Multivitamin With Minerals Tablet PO 1 tab DAILY YUDY Administration Ondansetron HCl 4 mg 11/14/20 01:08 Ondansetron Hcl 4 Mg/2 Ml Vial IVPUSH Q8H PRN Nausea and Vomiting Pharmacy Consult 1 each 11/13/20 20:56 Consult Rx Perform Med Rec MISCELLANE ONCE PRN Consult order Pravastatin Sodium 40 mg 11/14/20 21:00 11/14/20 21:04 Pravastatin Sodium 40 Mg Tablet PO 40 mg BEDTIME YUDY Administration Sodium Chloride 3 ml 11/14/20 01:08 11/15/20 07:47 0.9 % Sodium Chloride Flush 3 Ml Syringe IVFLUSH 3 ml QSHIFT YUDY Administration Valsartan 40 mg 11/14/20 09:00 11/15/20 09:38 Valsartan 40 Mg Tablet PO 40 mg DAILY YUDY Administration Labs CBC & Chem 7: 11/13/20 14:13 11/15/20 05:31 Assessment and Plan (1) Acute hyponatremia: Problem details: Hyponatremia likely multifactorial Likely has underlying excess ADH Compounded by recent HCTZ HCTZ discontinued; Serum sodium improving No indication for hypertonic saline/PO Urea now Fluid restriction; Labs AM. Shall closely follow up Status: Acute (2) Weakness: Status: Acute Assessment and Plan: 80-year-old female with past medical history of hypertension presents to the hospital with complaints of weakness found to have hyponatremia 1. hyponatremia: noted to be thought most likely 2/2 HCTZ ? volume depletion - no neurological deficits seems weak , we will add NS @100ml/hr continue to moniter 2.Weakness - most likely 2/2 hyponatremia Seems improving as per the patient. Continue to monitor 3. HTN - stable - continue olmesartan 4. Hypothyroidism - continue levothyroxine
--- NOTE | 2020-11-15 16:53 | PM.PNNEP ---
Subjective Subjective Date of Service: 11/15/20 Interval history: Events noted. All recent data reviewed. D/W Med Attending Physical Exam Vital Signs: Vital Signs: Last Vital Signs Temp 97.7 F 11/15/20 15:33 Pulse 93 11/15/20 15:33 Resp 18 11/15/20 15:33 BP 132/77 11/15/20 15:33 Pulse Ox 92 11/15/20 15:33 Body Mass Index 31.4 Const: General: no acute distress Eyes: EOM: EOMs intact bilaterally Resp: Auscultation: diminished lung sounds Cardio: Rate: regular rate GI: Palpation (GI): Soft to palpation Neuro: General: moves all extremities Objective Data Labs CBC & Chem 7: 11/13/20 14:13 11/15/20 05:31 Labs: Laboratory Results - last 24 hr 11/15/20 05:31 Sodium 130 L Potassium 4.2 Chloride 96 Carbon Dioxide 27 Anion Gap 11 L BUN 26 H D Creatinine 1.09 Estim Creat Clear Calc 45.9 Estimated GFR 49 Random Glucose 83 Calcium 9.1 Assessment & Plan Assessment and plan (1) Acute hyponatremia: Problem details: Hyponatremia likely multifactorial Likely has underlying excess ADH Compounded by recent HCTZ HCTZ discontinued; Serum sodium improving Orthostatic. Can receive NS 500 ml bolus Labs AM. Shall closely follow up Status: Acute Time Spent With Patient Time: Total time spent is greater than 50% in coordination of care (as documented) at patient's floor/unit and/or counseling patient: Procedures Date of Service Date of Service: 11/15/20
[2020-11-15] MEDS: Pravastatin Sodium 40 MG TABLET PO (20:56)
[2020-11-16] VITALS (8 sets, daily range): BP systolic 100–145; BP diastolic 52–77; PULSE 68–86; RESP 18–20; TEMP 36.4–36.8; O2SAT 94–98
[2020-11-16] MEDS: Enoxaparin Sodium 40 MG/0.4 ML SYRINGE SUBCUT (02:18)
[2020-11-16] MEDS: Levothyroxine Sodium 50 MCG TABLET PO (05:38)
[2020-11-16] MEDS: 0.9 % Sodium Chloride Flush 3 ML SYRINGE IVFLUSH (08:08)
[2020-11-16] MEDS: Valsartan 40 MG TABLET PO (08:09)
[2020-11-16] MEDS: Cyanocobalamin (Vitamin B-12) 1,000 MCG TABLET 1000 MCG PO (08:09)
[2020-11-16 09:09] LABS: Anion Gap 12 (12-20); Blood Urea Nitrogen 29 mg/dL (9-16); Calcium 9.1 mg/dL (8.4-10.2); Carbon Dioxide 25 mmol/L (22-29); Chloride 100 mmol/L (96-108); Creatinine Clr Calc Pharmacy 52.1; Estimated Glomerular Filt Rate 56; Glucose Random 91 mg/dL (60-115); Potassium 4.4 mmol/L (3.3-5.1); Sodium 133 mmol/L (135-145)
[2020-11-16] MEDS: Midodrine HCl 2.5 MG TABLET PO ×2 (10:25→20:57)
--- NOTE | 2020-11-16 10:26 | P.PNNP_ITS ---
Subjective Subjective Date of Service: 11/16/20 Interval history: Events noted. All recent data reviewed. Physical Exam Vital Signs: Vital Signs: Last Vital Signs Temp 98.2 F 11/16/20 07:31 Pulse 86 11/16/20 07:31 Resp 20 11/16/20 07:31 BP 135/67 11/16/20 07:31 Pulse Ox 97 11/16/20 07:31 Body Mass Index 31.4 Const: General: no acute distress Orientation/consciousness: patient oriented x3 Eyes: EOM: EOMs intact bilaterally Neck: Neck: Yes supple Resp: Auscultation: diminished lung sounds Cardio: Jugular venous distension: no JVD GI: Palpation (GI): Soft to palpation Neuro: General: patient oriented x3 and moves all extremities Objective Data Labs CBC & Chem 7: 11/13/20 14:13 11/16/20 07:51 Labs: Laboratory Results - last 24 hr 11/16/20 07:51 Sodium 133 L Potassium 4.4 Chloride 100 Carbon Dioxide 25 Anion Gap 12 BUN 29 H Creatinine 0.96 Estim Creat Clear Calc 52.1 Estimated GFR 56 Random Glucose 91 Calcium 9.1 Assessment & Plan Assessment and plan (1) Acute hyponatremia: Problem details: Hyponatremia likely multifactorial Likely has underlying excess ADH Compounded by recent HCTZ HCTZ discontinued; Serum sodium improving Intermittently Orthostatic. Can receive another NS 500 ml bolus Needs Rehab ; Shall closely follow up Status: Acute Time Spent With Patient Time: Total time spent is greater than 50% in coordination of care (as document ed) at patient's floor/unit and/or counseling patient: Procedures Date of Service Date of Service: 11/16/20
[2020-11-16] MEDS: 0.9 % Sodium Chloride 500 ML 80 ML IV ×2 (11:39→17:06)
--- NOTE | 2020-11-16 17:01 | HO.PM.IMPN ---
Subjective Subjective Date of Service: 11/16/20 Interval History: Orthostasis Review of Systems still feels weak and dizzy. Denies any chest pain or shortness of breath or abdominal pain or fever chills, Denies any nausea or vomiting or diarrhea Physical Exam Vital Signs: Vital Signs: Last Vital Signs Temp 97.8 F 11/16/20 15:33 Pulse 83 11/16/20 15:33 Resp 18 11/16/20 15:33 BP 119/55 L 11/16/20 15:33 Pulse Ox 94 11/16/20 15:33 Body Mass Index 31.4 Physical exam: Cvs: rrr, [id number] , no murmur res: clear to auscultation ,no rhonchii or wheezing abd: no rebound or guarding ,nt, bs present. ext pulses present , no cyanosis neuro: axo3 , nonfocal. Objective Data Current Medications Generic Name Dose Route Start Last Admin Trade Name Freq PRN Reason Stop Dose Admin Acetaminophen 650 mg 11/14/20 01:08 Acetaminophen 325 Mg Tablet PO Q6H PRN Pain, Mild (Pain Scale 1-3) Cyanocobalamin 1,000 mcg 11/14/20 09:00 11/16/20 08:09 Cyanocobalamin (Vitamin B-12) 1,000 Mcg Tablet PO 1,000 mcg DAILY YUDY Administration Docusate Sodium 100 mg 11/14/20 01:08 Docusate Sodium 100 Mg Capsule PO DAILY PRN Constipation Enoxaparin Sodium 40 mg 11/14/20 02:00 11/16/20 02:18 Enoxaparin Sodium 40 Mg/0.4 Ml Syringe SUBCUT 40 mg Q24H YUDY Administration Fluticasone Propionate 1 spray 11/14/20 02:17 Fluticasone Propionate Nasal 16 Gm Aldrich NOSTRIL-B DAILY PRN allergies Sodium Chloride 500 mls @ 80 mls/hr 11/16/20 11:00 11/16/20 11:39 Ns IV 80 mls/hr .Q6H15M YUDY Administration Levothyroxine Sodium 50 mcg 11/14/20 06:30 11/16/20 05:38 Levothyroxine Sodium 50 Mcg Tablet PO 50 mcg DAILY@0630 YUDY Administration Loratadine 10 mg 11/14/20 01:08 Loratadine 10 Mg Tablet PO DAILY PRN Allergy Symptoms Multivitamins/Minerals 1 tab 11/14/20 09:00 11/16/20 08:09 Multivitamin With Minerals Tablet PO 1 tab DAILY YUDY Administration Ondansetron HCl 4 mg 11/14/20 01:08 Ondansetron Hcl 4 Mg/2 Ml Vial IVPUSH Q8H PRN Nausea and Vomiting Pharmacy Consult 1 each 11/13/20 20:56 Consult Rx Perform Med Rec MISCELLANE ONCE PRN Consult order Pravastatin Sodium 40 mg 11/14/20 21:00 11/15/20 20:56 Pravastatin Sodium 40 Mg Tablet PO 40 mg BEDTIME YUDY Administration Sodium Chloride 3 ml 11/14/20 01:08 11/16/20 08:08 0.9 % Sodium Chloride Flush 3 Ml Syringe IVFLUSH 3 ml QSHIFT YUDY Administration Valsartan 40 mg 11/14/20 09:00 11/16/20 08:09 Valsartan 40 Mg Tablet PO 40 mg DAILY YUDY Administration Labs CBC & Chem 7: 11/13/20 14:13 11/16/20 07:51 Assessment and Plan (1) Weakness: Status: Acute Assessment and Plan: 80-year-old female with past medical history of hypertension presents to the hospital with complaints of weakness found to have hyponatremia 1. hyponatremia: noted to be thought most likely 2/2 HCTZ ? volume depletion - no neurological deficits orthostasis:seems weak , we will add NS 500 ml total.added midodrine and dante stockings continue to moniter 2.Weakness - most likely 2/2 hyponatremia Seems improving as per the patient. Continue to monitor 3. HTN - stable - continue olmesartan 4. Hypothyroidism - continue levothyroxine (2) Acute hyponatremia: Status: Acute
[2020-11-16] MEDS: Pravastatin Sodium 40 MG TABLET PO (20:57)
[2020-11-17 01:03] VITALS: BMI 31.9
[2020-11-17] MEDS: Enoxaparin Sodium 40 MG/0.4 ML SYRINGE SUBCUT (02:58)
[2020-11-17 03:19] VITALS: BP 140/68; PULSE 69; RESP 18; TEMP 36.8; O2SAT 97
[2020-11-17] MEDS: 0.9 % Sodium Chloride 500 ML 80 ML IV (03:48)
[2020-11-17] MEDS: Levothyroxine Sodium 50 MCG TABLET PO (05:52)
[2020-11-17 07:50] VITALS: BP 162/80; PULSE 100; RESP 20; TEMP 37; O2SAT 91
[2020-11-17 08:32] VITALS: BP 137/55; PULSE 88
[2020-11-17] MEDS: Midodrine HCl 2.5 MG TABLET PO (08:36)
[2020-11-17] MEDS: Cyanocobalamin (Vitamin B-12) 1,000 MCG TABLET 1000 MCG PO (08:36)
[2020-11-17] MEDS: Valsartan 40 MG TABLET PO (08:36)
[2020-11-17] MEDS: 0.9 % Sodium Chloride Flush 3 ML SYRINGE IVFLUSH (08:36)
[2020-11-17 09:10] VITALS: BP 126/62; BP 128/61; PULSE 91; PULSE 97
[2020-11-17 10:32] VITALS: BP 126/62; PULSE 97
[2020-11-17 11:49] VITALS: BP 139/78; PULSE 65; TEMP 36.6; O2SAT 97
--- NOTE | 2020-11-17 12:08 | P.DS_ITS ---
DS: Providers Provider Date of Service: 11/17/20 Date of admission: 11/13/20 23:04 Primary care physician: Candace Rios DO Consults: 11/14/20 01:08 Consult to Nephrology Routine Consulting Provider: [facility] Reason for consultation: hyponatremia Has provider been notified: Yes DS: Diagnosis Discharge Diagnosis (1) Weakness: Status: Acute (2) Acute hyponatremia: Status: Acute DS: Medications Discharge Medications Home Medications: Home Medications Medication Instructions Recorded Confirmed alendronate 70 mg tablet 70 mg PO LASSTIER@62911/03/20 11/13/20 cyanocobalamin (vitamin B-12) 1,000 mcg PO DAILY 11/03/20 11/13/20 1,000 mcg tablet levothyroxine 50 mcg tablet 50 mcg PO DAILY@30 11/03/20 11/13/20 olmesartan 5 mg tablet 10 mg PO DAILY 11/03/20 11/13/20 pravastatin 40 mg tablet 40 mg PO BEDTIME 11/03/20 11/13/20 calcium citrate-vitamin D3 1 tab PO DAILY 11/13/20 11/13/20 [Citracal plus D] cetirizine 10 mg PO DAILY PRN 11/13/20 11/13/20 hydrochlorothiazide 25 mg PO DAILY 11/13/20 11/13/20 [id number] acid 1 tab PO DAILY 11/13/20 11/13/20 [Centrum Women] njgay-2o-vio-epa-fish oil [Fish 1 cap PO DAILY 11/13/20 11/13/20 Oil] triamcinolone acetonide 1 spray INTRANASAL DAILY PRN 11/13/20 11/13/20 DS: Summary Hospital Course Hospital Course: 80-year-old female with past medical history of hypertension, hyperlipidemia who presents to the hospital with weakness. Patient presents with her daughter at bedside. She reports weakness for the past 1 week, otherwise denies any chest pain, shortness of breath, headache, change in vision. No abdominal pain nausea or vomiting, no diarrhea or constipation. No urinary symptoms. Patient had presented to the hospital on 11/02 with complaints of lower extremity edema and at that time patient was started on hydrochlorothiazide, patient has been taking hydrochlorothiazide for the past 10 days and reports resolution of her lower extremity edema. She denies any orthopnea or PND. To the ED hemodynamically stable with no significant abnormal vitals Labs are significant for WBC count of 10.1, hemoglobin of 12.4, hematocrit 35.1, sodium of 123 (134 on 11/02), serum osmolality of 268, uric acid of 6.2, troponin of 12, urine osmolality of 229, BNP of 24. UA negative. Chest x-ray unremarkable. Hospital Course problem section: Patient came to the hospital because of dizziness and weakness-subsequently found to have orthostasis and hyponatremia. Hyponatremia: Thought to be multifactorial-hydrochlorothiazide use, dehydration, sIADH may also be contributing . Patient was advised to stop hydrochlorothiazide. Keep water intake around 1500 mL a day. Monitor renal function and electrolytes with PCP in a week Follow-up outpatient with Nephrology. Orthostasis:: Seems to be improved with hydration, Franky stocking Further management outpatient as per PCP. Above management discussed with the patient in detail length she understand and in agreement with the above plan, time spent 50 minutes and 50% time spent on counseling. Significant findings: As above. Procedures performed: None. Treatment and response: As above. Complications: None. Time Spent with Patient Time attestation: Total time spent providing and/or coordinating discharge services: Discharge coordination time: Greater than 30 minutes Quality: Stroke Does the patient have a stroke diagnosis?: No Physical Exam Vital Signs: Vital Signs: Last Vital Signs Temp 97.8 F 11/17/20 11:49 Pulse 65 11/17/20 11:49 Resp 20 11/17/20 07:50 BP 139/78 11/17/20 11:49 Pulse Ox 97 11/17/20 11:49 Body Mass Index 31.9 Physical exam: Constitutional: Not in acute distress. Cvs: rrr, [id number] , no murmur res: clear to auscultation ,no rhonchii or wheezing abd: no rebound or guarding ,nt, bs present. ext pulses present , no cyanosis neuro: axo3 , nonfocal. Discharge Plan Discharge Patient Disposition: Home Health Service Discharge Diagnosis: orthostatsis, dehydration, hyponatremia Referrals: Jessica PANIAGUA [Outside] - 1 Week Candace Roman DO [Primary Care Provider] - 1 Week Discharge Medications: Jan (ERVIN) JordanENydia [facility]nee [facility] Instructions .ROUTE .MEDSUPPLY Qty: 12 RF: 0 Continued triamcinolone acetonide 55 mcg aerosol,spray 1 spray intranasal DAILY PRN (Reason: allergies) RF: 0 cetirizine 10 mg Tablet 10 mg PO DAILY PRN (Reason: Allergy Symptoms) RF: 0 Fish Oil 120 mg-180 mg- 60 mg-1,200 mg Capsule,Delayed Release(Dr/Ec) 1 cap PO DAILY RF: 0 Centrum Women 18-400 mg-mcg Tablet 1 tab PO DAILY RF: 0 calcium citrate-vitamin D3 [Citracal plus D] 250 mg-5 mcg (200 unit) Tablet 1 tab PO DAILY RF: 0 cyanocobalamin (vitamin B-12) 1,000 mcg tablet 1,000 mcg PO DAILY RF: 0 pravastatin 40 mg tablet 40 mg PO BEDTIME RF: 0 olmesartan 5 mg tablet 10 mg PO DAILY RF: 0 alendronate 70 mg tablet 70 mg PO LASSITER@0630 RF: 0 levothyroxine 50 mcg tablet 50 mcg PO DAILY@30 RF: 0 Discontinued hydrochlorothiazide 25 mg tablet 25 mg PO DAILY RF: 0 Discharge Orders: Discharge Order (Routine); Ordered 11/17/20 Ordered By: Jayesh Almaguer Diet: advance to usual diet Activity on Discharge: As tolerated Stand Alone Forms: Patient Portal Discharge page Other Ambulatory Orders: Basic Metabolic Panel Fasting (Routine) Timeframe: [id number] Facility: [facility] - Location: Laboratory Ordered By: Jayesh Almaguer Care Plan Goals: Patient came to the hospital because of dizziness and weakness-subsequently found to have orthostasis and hyponatremia. Hyponatremia: Thought to be multifactorial-hydrochlorothiazide use, dehydration. Patient was advised to stop hydrochlorothiazide. Keep water intake around 1500 mL a day. Monitor renal function and electrolytes with PCP in a week Follow-up outpatient with Nephrology. Orthostasis:: Seems to be improved with hydration, Franky stocking Further management outpatient as per PCP Health Concerns: As above. Plan of Treatment: As above. Assessment: As above.
--- NOTE | 2020-11-17 12:25 | PM.PNNEP ---
Subjective Subjective Date of Service: 11/17/20 Interval history: Seen AM. Events noted. All recent data reviewed Physical Exam Vital Signs: Vital Signs: Last Vital Signs Temp 97.8 F 11/17/20 11:49 Pulse 65 11/17/20 11:49 Resp 20 11/17/20 07:50 BP 139/78 11/17/20 11:49 Pulse Ox 97 11/17/20 11:49 Body Mass Index 31.9 Const: General: no acute distress Orientation/consciousness: patient oriented x3 Neck: Neck: Yes supple Resp: Auscultation: diminished lung sounds Cardio: Jugular venous distension: no JVD GI: Palpation (GI): Soft to palpation Neuro: General: patient oriented x3 and moves all extremities Objective Data Labs CBC & Chem 7: 11/13/20 14:13 11/16/20 07:51 Assessment & Plan Time Spent With Patient Time: Hyponatremia Serum sodium better. Weakness better. Could remain on fluid restriction Could be discharged from a renal perspective. Shall arrange office follow up when D/Star Total time spent is greater than 50% in coordination of care (as documented) at patient's floor/unit and/or counseling patient: Procedures Date of Service Date of Service: 11/17/20
--- NOTE | 2020-11-17 12:29 | MHC.CM.PN ---
PT WILL DISCHARGE HOME TODAY WITH [facility].
--- NOTE | 2020-11-17 12:31 | P.F2F_ITS ---
Service Date Service Date: 11/17/20 Encounter Date of encounter: 11/17/20 Encounter: hyponatremia , orthostasis Reasons for Services Reason for speech therapy: other Homebound: Leaving the home is medically contraindicated at this time without the asist of a device and/or another person due th the listed conditions above and below. Certification: Based on the above findings, I certify that this patient is confined to the home and needs intermittent detention care, physical therapy and/or speech therapy, or continues to need occupational therapy. The patient is under my care, and I have initiated the establishment of the plan of care. The patient will be followed by a physician who will periodically review the plan of care.
--- NOTE | 2020-11-17 12:36 | MHC.CM.PN ---
CM MET WITH PT TO DISCUSS PENDING DC. PT IS AWARE SHE WILL DC HOME WITH [facility] FOR [facility]. PT REPORTS SHE WILL CALL HER DAUGHTER TO PICK HER UP ONCE SHE IS READY TO LEAVE. PTS MEDICARE RIGHTS WERE REVIEWED AND SHE REPORTS SHE IS AGREEABLE TO DC TODAY AND THE PLAN THAT IS IN PLACE. PT WILL DC HOME TODAY WITH [facility] FOR SN SERVICES DAUGHTER WILL TRANSPORT
== END 2020-11-17 14:10 | disposition home health service (06) | DRG 645 ==
LOC: HO.ED 17:53 → HO.EDOVER 23:16 → HO.IMC 11-14
PROVIDERS: Nurse Practitioner Family; Admitting Provider Internal Medicine; Emergency Provider Emergency Medicine; PCP Internal Medicine; Visit Provider Internal Medicine
DX: E22.2 Syndrome of inappropriate secretion of antidiuretic hormone (principal); E86.0 Dehydration; I10 Essential (primary) hypertension; I95.1 Orthostatic hypotension; T50.2X5A Adverse effect of carbonic-anhydrase inhibitors, benzothiadiazides and other diuretics, initial encounter; Y92.9 Unspecified place or not applicable; E78.5 Hyperlipidemia, unspecified; E03.9 Hypothyroidism, unspecified; Z20.822 Contact with and (suspected) exposure to COVID-19; Z87.891 Personal history of nicotine dependence; Z79.890 Hormone replacement therapy; Z79.899 Other long term (current) drug therapy
CPT/HCPCS: 36415; 71046; 80048; 81001; 83880; 83930; 83935; 84295; 84300; 84484; 84550; 84560; 85025; 87635; 93005; 97116; 97162; 99285; 99291; J1650

== ENCOUNTER 2020-11-23 09:24 | Outpatient (REF) | payer MEDICARE, BC, SELFPAY ==
[2020-11-23 10:10] LABS: Anion Gap 12 (12-20); Blood Urea Nitrogen 24 mg/dL (9-16); Calcium 9.1 mg/dL (8.4-10.2); Carbon Dioxide 25 mmol/L (22-29); Chloride 102 mmol/L (96-108); Estimated Glomerular Filt Rate 54; Glucose Fasting 85 mg/dL (60-99); Sodium 134 mmol/L (135-145)
== END 2020-11-23 09:25 | disposition home or self-care (01) ==
LOC: HO.LNP 09:24
PROVIDERS: Visit Provider Internal Medicine
DX: E87.1 Hypo-osmolality and hyponatremia (principal)
CPT/HCPCS: 80048

== ENCOUNTER 2021-01-09 10:36 | Outpatient (REF) | payer MEDICARE, BC, SELFPAY ==
[2021-01-09 11:54] LABS: Anion Gap 14 (12-20); Blood Urea Nitrogen 27 mg/dL (9-16); Carbon Dioxide 25 mmol/L (22-29); Chloride 105 mmol/L (96-108); Estimated Glomerular Filt Rate 52; Potassium 4.8 mmol/L (3.3-5.1); Sodium 139 mmol/L (135-145)
== END 2021-01-09 10:37 | disposition home or self-care (01) ==
LOC: HO.LAB 10:36
PROVIDERS: PCP Internal Medicine; Visit Provider Internal Medicine Nephrology
DX: E87.1 Hypo-osmolality and hyponatremia (principal)
CPT/HCPCS: 36415; 80051; 82310; 82565; 84520

== ENCOUNTER 2021-03-28 10:53 | Outpatient (REF) | payer MEDICARE, BC, SELFPAY ==
[2021-03-28 12:26] LABS: Anion Gap 13 (12-20); Blood Urea Nitrogen 24 mg/dL (9-16); Calcium 10.2 mg/dL (8.4-10.2); Carbon Dioxide 25 mmol/L (22-29); Chloride 103 mmol/L (96-108); Estimated Glomerular Filt Rate 51; Potassium 4.7 mmol/L (3.3-5.1); Sodium 136 mmol/L (135-145)
== END 2021-03-28 10:54 | disposition home or self-care (01) ==
LOC: HO.LAB 10:53
PROVIDERS: PCP Internal Medicine; Visit Provider Internal Medicine Nephrology
DX: E87.1 Hypo-osmolality and hyponatremia (principal)
CPT/HCPCS: 36415; 80051; 82310; 82565; 84520

== ENCOUNTER 2021-07-26 11:00 | Emergency (ER) | payer MEDICARE, BC, SELFPAY ==
--- NOTE | ~2021-07-26 | XR_ITS ---
EXAMINATION: XR CHEST CLINICAL INFORMATION: Weakness COMPARISON: Previous chest x-ray most recent October 2020 TECHNIQUE: Frontal view of the chest was obtained. FINDINGS: The cardiac and mediastinal contours are stable. There is a question of bronchial wall thickening, particularly at the right lung base. These changes may be chronic. The lungs are otherwise clear. The lungs appear well inflated. There is no pleural effusion or pneumothorax. There is curvature of the thoracic spine to the right and degenerative changes. XR/XR chest 1V IMPRESSION: Question bronchial wall thickening, particularly at the right lung base. These changes may be chronic.
[2021-07-26 11:13] VITALS: BP 128/69; PULSE 107; RESP 18; TEMP 36.8; O2SAT 96; BMI 33.4
--- NOTE | 2021-07-26 11:15 | ECG_ITS ---
Test Reason : WEAKNESS Blood Pressure : / mmHG Vent. Rate : 095 BPM Atrial Rate : 095 BPM P-R Int : 138 ms QRS Dur : 086 ms QT Int : 328 ms P-R-T Axes : 026 041 062 degrees QTc Int : 412 ms Sinus rhythm with frequent , and consecutive Premature ventricular complexes Nonspecific ST abnormality Abnormal ECG When compared with ECG of 15-NOV-2020 11:15, Nonspecific T wave abnormality no longer evident in Inferior leads Referred By: Rosa Mistry Electronically Signed By:HARDY VIERA MD
--- NOTE | 2021-07-26 11:20 | ED_ITS ---
HPI - Weakness General Chief complaint: Weakness Stated complaint: weakness nausea Time Seen by Provider: 07/26/21 11:14 Source: patient Mode of arrival: ambulatory Limitations: no limitations History of Present Illness HPI Narrative: 80 y/o female with history of HTN, HLD, hypothyroidism, LE edema previously on HCTZ resulting in hyponatremia who presents to the ER with generalized weakness since yesterday. She also reports increased chest congestion and coughing for the last 2-3 days. No SOB or chest pain. She reports feeling fatigued and weak when walking around her home. She reports it feels similar to when she was hyponatremic in the past. She denies being on any diuretics or any new medications. She did have 2 episdoes of loose stool this morning as well but no abdominal pain. She is also nauseated the last 24 hours but no vomiting. Denies focal weakness, speech difficulties, facial droop. MD Complaint: generalized weakness Onset (ago): day(s) (1) Duration: constant Location: generalized Migration: none Severity: moderate Relieving factors: none Exacerbating factors: exertion Context: recent illness Associated symptoms: nausea/vomiting Related Data Home Medications Medication Instructions Recorded Confirmed alendronate 70 mg tablet 70 mg PO LASSITER 11/03/20 07/26/21 cyanocobalamin (vitamin B-12) 1,000 mcg PO DAILY 11/03/20 07/26/21 1,000 mcg tablet levothyroxine 50 mcg tablet 50 mcg PO DAILY@0600 11/03/20 07/26/21 olmesartan 5 mg tablet 10 mg PO DAILY 11/03/20 07/26/21 pravastatin 40 mg tablet 40 mg PO BEDTIME 11/03/20 07/26/21 calcium citrate 250 mg 1 tab PO DAILY 11/13/20 07/26/21 calcium-vitamin D3 5 mcg (200 unit) tablet multivitamin-ferrous 1 tab PO DAILY 11/13/20 07/26/21 fumarate-folic acid 18 mg-400 mcg tablet (Centrum Women) pdgik-5p-epq-epa-fish oil 120 1 cap PO DAILY 11/13/20 07/26/21 mg-180 mg-60 mg-1,200 mg capsule, DR (Fish Oil) Previous Rx's Medication Instructions Recorded compr.stocking,knee,long,small #12 ea 11/17/20 (T.E.D. Knee Ppiaqp-D-Jisc) Allergies Allergy/AdvReac Type Severity Reaction Status Date / Time meperidine [From Allergy Unknown UNKNOWN Verified 07/26/21 11:13 DEMEROL] NARCOTIC ANTAGONIST AdvReac Unknown AGITATION Uncoded 11/03/20 13:03 AND MAKES HER ILL Review of Systems Verdana 4l Review of Systems: Verdana 4d Verdana 4d Constitutional: No Fever, No Chills ENT/Mouth: No sore throat, No Rhinorrhea Eyes: No vision changes Cardiovascular: No Chest Pain, No SOB, No Orthopnea, No Edema Respiratory: +Cough,+ Sputum, No Wheezing, No dyspnea Gastrointestinal:+ Nausea, No Vomiting, No Diarrhea, No abdominal Pain, No Hematochezia, No Melena Genitourinary: No Dysuria, No Urinary Frequency, No Hematuria Musculoskeletal: No joint pain, No Myalgias Skin: No Skin Lesions, No rash Neuro: + Weakness, No Numbness, No Dizziness, No Headache Psych: No Anxiety/Panic, No Depression Heme/Lymph: No Bruising, No Lymphadenopathy Endocrine: No Polyuria, No Polydipsia PMFSH Past Medical History Medical History (Updated 07/26/21 @ 13:14 by [address]) Elevated cholesterol Hypertension Hypothyroidism Surgical History H/O section Hx of appendectomy Social History Social History Household Members: None Housing: House Do you presently have visiting nurse or other home services: No Alcohol intake: never Patient Tobacco Use Status: Former Tobacco user Second Hand Smoke Exposure: No Advance Directives: Yes Advance Directives Information Provided: Yes Advance Directives on File: No service: No Current occupational status: retired Physical Exam Verdana 4l Vital Signs: Verdana 4d Verdana 4d Vital Signs: Verdana 4d Verdana 4Bd Last Vital Signs Verdana 4d Prototype Machine Operator New 4d Prototype Machine Operator New 4d Temp 98.2 F 07/26/21 11:13 Prototype Machine Operator New 4d Pulse 107 H 07/26/21 11:37 Prototype Machine Operator New 4d Resp 20 07/26/21 11:37 BP 149/66 H 07/26/21 11:37 Pulse Ox 96 07/26/21 11:13 BMI result Body Mass Index 33.4 Appearance: Alert. Oriented X3. No acute distress. Eyes: Pupils equal, round and reactive to light. ENT: Pharynx normal. Neck: Normal inspection. Neck supple. CVS: Tachycardic, regular rhythm. Pulses normal. Respiratory: No respiratory distress. Breath sounds normal. Congested cough noted. Abdomen: Soft and nontender. +BS x4 Skin: Skin warm and dry. Normal skin color. Normal skin turgor. No rashes. Extremities: No lower extremity edema. Neuro: Oriented X 3. No motor deficit. No sensory deficit. ambulates with steady gait Course Course Course Narrative: 80 y/o female presenting with generalized weakness and congested cough. Exam is nonfocal neurologically - congested cough and slightly tachycardic on exam. ?PNA, possible COVID. No respiratory distress or hypoxia. Will check CXR, lab workup, EKG and trop. Reevaluation(s) Reevaluation #1: CXR with ?bronchial wall thickening, particularly at RLL which appears chronic. No infiltrate. COVID-19 is POSITIVE. She is fully vaccinated and boosted. SpO2 remains 98-100%. Labs still pending to assess for metabolic derrangements. Reevaluation #2: Sodium mildly low at 131, last was 136 in Feb. Patient no longer in diuretics. Advised to slightly limit her water intake and have her follow up with PCP next week for repeat labs. Advised to come back to the ER if her weakness or respiratory symptoms are worsening. Stable for d/c home with supportive care. Patient agrees with plan. MDM - Weakness Lab Data Result diagrams: 07/26/21 11:46 07/26/21 11:46 Labs: Lab Results 07/26/21 07/26/21 07/26/21 Range/Units 11:46 11:46 11:46 WBC 5.4 (4.8-10.8) X10*3/uL RBC 3.88 L (4.20-5.50) X10*6/uL Hgb 12.6 (12.0-16.0) g/dl Hct 36.6 L (37.0-47.0) % MCV 94.3 (80.0-98.0) fL MCH 32.5 (27.0-33.0) pg MCHC 34.4 (31.0-35.0) g/dl RDW 13.0 (11.0-16.0) % Plt Count 275 (160-400) X10*3/uL MPV 9.3 L (9.4-12.3) fL Immature Gran % (Auto) 0.4 (0.0-0.4) % Neut % (Auto) 70.4 (45-73) % Lymph % (Auto) 21.0 (20-40) % [place] % (Auto) 7.4 (2-11) % Eos % (Auto) 0.4 (0-4) % Baso % (Auto) 0.4 (0-2) % Lymph # (Auto) 1.1 L (1.2-4.9) X10*3/uL [place] # (Auto) 0.4 (0.1-1.2) X10*3/uL Eos # (Auto) 0.0 (0.0-0.4) X10*3/uL Baso # (Auto) 0.0 (0.0-0.2) X10*3/uL Abs Immat Gran (auto) 0.02 (0.00-0.03) X10*3/uL Absolute Neuts (auto) 3.8 (2.0-8.3) x10*3/uL Absolute Nucleated RBC 0.000 (0.0-0.012) X10*3/uL Nucleated RBC % (auto) 0.0 (0.0-0.2) /100WBC Sodium 131 L (135-145) mmol/L Potassium 4.7 (3.3-5.1) mmol/L Chloride 100 (96-108) mmol/L Carbon Dioxide 23 (22-29) mmol/L Anion Gap 13 (12-20) BUN 22 H (9-16) mg/dL Creatinine 1.22 (0.5-1.4) mg/dL Estim Creat Clear Calc 42.3 Estimated GFR 43 Random Glucose 103 (60-115) mg/dL Osmolality (281-305) mosm/kg Lactic Acid (0.5-2.0) mmol/L Calcium 10.1 (8.4-10.2) mg/dL Magnesium 2.0 (1.6-2.6) mg/dL Total Bilirubin 0.6 (0.0-1.0) mg/dL Direct Bilirubin 0.2 (0.0-0.5) mg/dL AST 22 (5-31) U/L ALT 20 (0-31) U/L Alkaline Phosphatase 49 (39-117) U/L Troponin I High Sens (<3.5-17.0) ng/L B-Natriuretic Peptide (<100) pg/mL Total Protein 7.4 (6.5-8.0) g/dL Albumin 4.3 (3.5-5.0) g/dL TSH (0.32-4.0) uIU/mL COVID-19 ([facility]) Positive A (Negative) COVID-19 Clin Com See Note Influenza Type A ([facility]KS) (Negative) Influenza Type B ([facility]) (Negative) Influenza A & B Note 07/26/21 07/26/21 07/26/21 Range/Units 11:46 11:46 11:46 WBC (4.8-10.8) X10*3/uL RBC (4.20-5.50) X10*6/uL Hgb (12.0-16.0) g/dl Hct (37.0-47.0) % MCV (80.0-98.0) fL MCH (27.0-33.0) pg MCHC (31.0-35.0) g/dl RDW (11.0-16.0) % Plt Count (160-400) X10*3/uL MPV (9.4-12.3) fL Immature Gran % (Auto) (0.0-0.4) % Neut % (Auto) (45-73) % Lymph % (Auto) (20-40) % [place] % (Auto) (2-11) % Eos % (Auto) (0-4) % Baso % (Auto) (0-2) % Lymph # (Auto) (1.2-4.9) X10*3/uL [place] # (Auto) (0.1-1.2) X10*3/uL Eos # (Auto) (0.0-0.4) X10*3/uL Baso # (Auto) (0.0-0.2) X10*3/uL Abs Immat Gran (auto) (0.00-0.03) X10*3/uL Absolute Neuts (auto) (2.0-8.3) x10*3/uL Absolute Nucleated RBC (0.0-0.012) X10*3/uL Nucleated RBC % (auto) (0.0-0.2) /100WBC Sodium (135-145) mmol/L Potassium (3.3-5.1) mmol/L Chloride (96-108) mmol/L Carbon Dioxide (22-29) mmol/L Anion Gap (12-20) BUN (9-16) mg/dL Creatinine (0.5-1.4) mg/dL Estim Creat Clear Calc Estimated GFR Random Glucose (60-115) mg/dL Osmolality (281-305) mosm/kg Lactic Acid 1.3 (0.5-2.0) mmol/L Calcium (8.4-10.2) mg/dL Magnesium (1.6-2.6) mg/dL Total Bilirubin (0.0-1.0) mg/dL Direct Bilirubin (0.0-0.5) mg/dL AST (5-31) U/L ALT (0-31) U/L Alkaline Phosphatase (39-117) U/L Troponin I High Sens 6.0 (<3.5-17.0) ng/L B-Natriuretic Peptide 61 (<100) pg/mL Total Protein (6.5-8.0) g/dL Albumin (3.5-5.0) g/dL TSH (0.32-4.0) uIU/mL COVID-19 ([facility]) (Negative) COVID-19 Clin Com Influenza Type A ([facility]KS) Negative (Negative) Influenza Type B ([facility]KS) Negative (Negative) Influenza A & B Note See Note 07/26/21 07/26/21 Range/Units 11:46 11:46 WBC (4.8-10.8) X10*3/uL RBC (4.20-5.50) X10*6/uL Hgb (12.0-16.0) g/dl Hct (37.0-47.0) % MCV (80.0-98.0) fL MCH (27.0-33.0) pg MCHC (31.0-35.0) g/dl RDW (11.0-16.0) % Plt Count (160-400) X10*3/uL MPV (9.4-12.3) fL Immature Gran % (Auto) (0.0-0.4) % Neut % (Auto) (45-73) % Lymph % (Auto) (20-40) % [place] % (Auto) (2-11) % Eos % (Auto) (0-4) % Baso % (Auto) (0-2) % Lymph # (Auto) (1.2-4.9) X10*3/uL [place] # (Auto) (0.1-1.2) X10*3/uL Eos # (Auto) (0.0-0.4) X10*3/uL Baso # (Auto) (0.0-0.2) X10*3/uL Abs Immat Gran (auto) (0.00-0.03) X10*3/uL Absolute Neuts (auto) (2.0-8.3) x10*3/uL Absolute Nucleated RBC (0.0-0.012) X10*3/uL Nucleated RBC % (auto) (0.0-0.2) /100WBC Sodium (135-145) mmol/L Potassium (3.3-5.1) mmol/L Chloride (96-108) mmol/L Carbon Dioxide (22-29) mmol/L Anion Gap (12-20) BUN (9-16) mg/dL Creatinine (0.5-1.4) mg/dL Estim Creat Clear Calc Estimated GFR Random Glucose (60-115) mg/dL Osmolality 282 (281-305) mosm/kg Lactic Acid (0.5-2.0) mmol/L Calcium (8.4-10.2) mg/dL Magnesium (1.6-2.6) mg/dL Total Bilirubin (0.0-1.0) mg/dL Direct Bilirubin (0.0-0.5) mg/dL AST (5-31) U/L ALT (0-31) U/L Alkaline Phosphatase (39-117) U/L Troponin I High Sens (<3.5-17.0) ng/L B-Natriuretic Peptide (<100) pg/mL Total Protein (6.5-8.0) g/dL Albumin (3.5-5.0) g/dL TSH 1.81 (0.32-4.0) uIU/mL COVID-19 ([facility]) (Negative) COVID-19 Clin Com Influenza Type A ([facility]) (Negative) Influenza Type B ([facility]) (Negative) Influenza A & B Note ECG Data Attestation: I personally reviewed and interpreted this ECG as follows: ECG interpretation date: 07/26/21 ECG interpretation time: 13:52 Prior ECG tracings: available for review Interpretation: Normal sinus rhythm with frequent PVCs, heart rate 95 beats per minute, nonspecific ST wave abnormality, DE interval normal, QTC normal. No ST segment elevations or depressions. Critical Care Time Critical Care Time Critical Care Time: No Discharge Plan Discharge Clinical Impression: COVID-19, Hyponatremia Patient Disposition: Home, Self-Care Instructions: Covid-19 Viral Syndrome and Novel Coronavirus (ED) Hey/Ath, Hyponatremia (ED) Additional Instructions: You were found to be COVID-19 POSITIVE today. Your chest x-ray and oxygen levels were normal. Rest. Drink plenty of fluids. Do not go out in public for the next 7-10 days. Take over the counter cold/flu medications as needed for your symptoms. Take Tylenol and/or Motrin as needed for fevers and body aches. Follow up with your doctor this week. If you shortness of breath worsens, if you develop difficulty breathing or any other concerning symptom come back to the ER for further evaluation. You were also found to have a sodium slightly low at 131. (normal 135-145). Recommend limiting your water to 2 bottles per day and following up with your doctor next week for repeat labs to make sure it is not going down any further. If you develop new or worsening symptoms call 911 or come back to the ER for further evaluation. Prescriptions: No Action Fish Oil 120 mg-180 mg- 60 mg-1,200 mg Capsule,Delayed Release(Dr/Ec) 1 cap PO DAILY 0RF Centrum Women 18-400 mg-mcg Tablet 1 tab PO DAILY 0RF calcium citrate-vitamin D3 250 mg-5 mcg (200 unit) Tablet 1 tab PO DAILY 0RF (DME) T.E.D. Knee [id number]-Hcrx Misc See Rx Instructions .ROUTE .MEDSUPPLY Qty: 12 0RF Rx Instructions: As directed cyanocobalamin (vitamin B-12) 1,000 mcg tablet 1,000 mcg PO DAILY 0RF pravastatin 40 mg tablet 40 mg PO BEDTIME 0RF olmesartan 5 mg tablet 10 mg PO DAILY 0RF alendronate 70 mg tablet 70 mg PO LASSITER 0RF levothyroxine 50 mcg tablet 50 mcg PO DAILY@0600 0RF
[2021-07-26 11:37] VITALS: BP 149/66; PULSE 107; RESP 20
--- NOTE | 2021-07-26 11:37 | PHA.MEDREC ---
Pharmacy Consult ? Medication Reconciliation Pharmacy has completed the medication reconciliation. There are no remarkable issues for provider's attention. Augustina Junior, DarianaD
[2021-07-26 11:50] LABS: MANUAL DIFF FLAG NO
[2021-07-26 11:52] LABS: Basophils Percent Auto 0.4 % (0-2); Eosinophils Percent Auto 0.4 % (0-4); Hematocrit 36.6 % (37.0-47.0); Hemoglobin 12.6 g/dl (12.0-16.0); Imm Gran Abs Auto 0.02 X10*3/uL (0.00-0.03); Imm Gran Pct Auto 0.4 % (0.0-0.4); Lymphocytes Absolute Auto 1.1 X10*3/uL (1.2-4.9); Mean Corpuscular HGB Conc 34.4 g/dl (31.0-35.0); Mean Corpuscular Hemoglobin 32.5 pg (27.0-33.0); Mean Corpuscular Volume 94.3 fL (80.0-98.0); Mean Platelet Volume 9.3 fL (9.4-12.3); Monocytes Absolute Auto 0.4 X10*3/uL (0.1-1.2); Monocytes Percent Auto 7.4 % (2-11); Neutrophils Absolute Auto 3.8 x10*3/uL (2.0-8.3); Neutrophils Percent Auto 70.4 % (45-73); Platelet Count 275 X10*3/uL (160-400); Red Blood Count 3.88 X10*6/uL (4.20-5.50); White Blood Count 5.4 X10*3/uL (4.8-10.8)
[2021-07-26 12:05] LABS: Lactic Acid 1.3 mmol/L (0.5-2.0)
[2021-07-26 12:07] LABS: COVID-19 Test Positive (Negative)
[2021-07-26 12:15] LABS: IDNOW Serial# 9DD0AD1C; Influenza A Negative (Negative); Influenza B2 Negative (Negative)
[2021-07-26 12:16] LABS: B Type Natriuretic Peptide 61 pg/mL (<100)
[2021-07-26 12:18] LABS: Alanine Aminotransferase 20 U/L (0-31); Albumin Level 4.3 g/dL (3.5-5.0); Alkaline Phosphatase 49 U/L (39-117); Anion Gap 13 (12-20); Aspartate Amino Transferase 22 U/L (5-31); Bilirubin Direct 0.2 mg/dL (0.0-0.5); Bilirubin Total 0.6 mg/dL (0.0-1.0); Blood Urea Nitrogen 22 mg/dL (9-16); Calcium 10.1 mg/dL (8.4-10.2); Carbon Dioxide 23 mmol/L (22-29); Chloride 100 mmol/L (96-108); Creatinine Clr Calc Pharmacy 42.3; Estimated Glomerular Filt Rate 43; Glucose Random 103 mg/dL (60-115); Potassium 4.7 mmol/L (3.3-5.1); Sodium 131 mmol/L (135-145); Total Protein 7.4 g/dL (6.5-8.0)
[2021-07-26 12:41] LABS: TSH reflex Free T4 1.81 uIU/mL (0.32-4.0)
[2021-07-26 12:46] LABS: Osmolality, Serum 282 mosm/kg (281-305)
== END 2021-07-26 14:10 | disposition home or self-care (01) ==
PROVIDERS: Physician Assistant; Emergency Provider Emergency Medicine; PCP Internal Medicine
DX: U07.1 COVID-19 (principal); E87.1 Hypo-osmolality and hyponatremia; R00.0 Tachycardia, unspecified; R11.0 Nausea; I10 Essential (primary) hypertension; E78.5 Hyperlipidemia, unspecified
CPT/HCPCS: 36415; 71045; 80048; 80076; 83605; 83735; 83880; 83930; 84443; 84484; 85025; 87502; 87635; 93005; 99283; 99284

== ENCOUNTER 2021-11-17 12:58 | Emergency (ER) | payer MEDICARE, BC, SELFPAY ==
--- NOTE | ~2021-11-17 | XR_ITS ---
EXAMINATION: XR CHEST CLINICAL INFORMATION: Weakness COMPARISON: Chest 07/26/2021 TECHNIQUE: Frontal view of the chest was obtained. FINDINGS: The lungs are hyperinflated but clear of acute process. The heart size and pulmonary vascularity is normal. There is mild dextroscoliosis dorsal spine. XR/XR chest 1V IMPRESSION: Unremarkable chest exam
--- NOTE | 2021-11-17 13:03 | ECG_ITS ---
Test Reason : CP Blood Pressure : / mmHG Vent. Rate : 097 BPM Atrial Rate : 097 BPM P-R Int : 144 ms QRS Dur : 084 ms QT Int : 322 ms P-R-T Axes : 027 032 043 degrees QTc Int : 408 ms Sinus rhythm with occasional Premature ventricular complexes Nonspecific ST and T wave abnormality Abnormal ECG When compared with ECG of 26-JUL-2021 11:56, No significant changes seen Referred By: Generic ED Physician Electronically Signed By:JONATHAN KULKARNI
[2021-11-17 13:40] VITALS: BP 173/82; PULSE 89; RESP 18; TEMP 36.5; O2SAT 98; BMI 32.6
[2021-11-17 13:58] LABS: MANUAL DIFF FLAG NO
[2021-11-17 14:01] LABS: Basophils Percent Auto 0.7 % (0-2); Eosinophils Percent Auto 0.4 % (0-4); Hematocrit 35.5 % (37.0-47.0); Imm Gran Abs Auto 0.01 X10*3/uL (0.00-0.03); Imm Gran Pct Auto 0.2 % (0.0-0.4); Lymphocytes Absolute Auto 1.6 X10*3/uL (1.2-4.9); Lymphocytes Percent Auto 29.9 % (20-40); Mean Corpuscular HGB Conc 33.8 g/dl (31.0-35.0); Mean Corpuscular Hemoglobin 31.5 pg (27.0-33.0); Mean Corpuscular Volume 93.2 fL (80.0-98.0); Mean Platelet Volume 9.1 fL (9.4-12.3); Monocytes Absolute Auto 0.4 X10*3/uL (0.1-1.2); Monocytes Percent Auto 7.5 % (2-11); Neutrophils Absolute Auto 3.4 x10*3/uL (2.0-8.3); Neutrophils Percent Auto 61.3 % (45-73); Platelet Count 260 X10*3/uL (160-400); Red Blood Count 3.81 X10*6/uL (4.20-5.50); Red Cell Distribution Width 12.9 % (11.0-16.0); White Blood Count 5.5 X10*3/uL (4.8-10.8)
[2021-11-17 14:16] LABS: Anion Gap 12 (12-20); Blood Urea Nitrogen 16 mg/dL (9-16); Calcium 10.3 mg/dL (8.4-10.2); Carbon Dioxide 26 mmol/L (22-29); Chloride 98 mmol/L (96-108); Creatinine Clr Calc Pharmacy 47.3; Estimated Glomerular Filt Rate 50; Glucose Random 102 mg/dL (60-115); Potassium 4.6 mmol/L (3.3-5.1); Sodium 131 mmol/L (135-145)
[2021-11-17 14:24] LABS: Troponin-I High Sensitivity 5.1 ng/L (<3.5-17.0)
--- NOTE | 2021-11-17 16:10 | ED_ITS ---
HPI - Dizziness General Chief Complaint: Dizziness Stated Complaint: weakness Time Seen by Provider: 11/17/21 16:10 Source: patient Mode of arrival: ambulatory Limitations: no limitations History of Present Illness HPI Narrative: patient 81 years old with history of hyponatremia and weakness in the past comes here or feeling weak and dizzy for last 2-3 days got worse at 11:00 o'clock today felt same as when she had low sodium in the past. Denies any fever or chills no cough no shortness for no nausea no vomiting no diarrhea denies any spinning movement feels weak Related Data Home Medications Medication Instructions Recorded Confirmed alendronate 70 mg tablet 70 mg PO LASSITER 11/03/20 07/26/21 cyanocobalamin (vitamin B-12) 1,000 mcg PO DAILY 11/03/20 07/26/21 1,000 mcg tablet levothyroxine 50 mcg tablet 50 mcg PO DAILY@0600 11/03/20 07/26/21 olmesartan 5 mg tablet 10 mg PO DAILY 11/03/20 07/26/21 pravastatin 40 mg tablet 40 mg PO BEDTIME 11/03/20 07/26/21 calcium citrate 250 mg 1 tab PO DAILY 11/13/20 07/26/21 calcium-vitamin D3 5 mcg (200 unit) tablet multivitamin-ferrous 1 tab PO DAILY 11/13/20 07/26/21 fumarate-folic acid 18 mg-400 mcg tablet (Centrum Women) wncws-6g-qpm-epa-fish oil 120 1 cap PO DAILY 11/13/20 07/26/21 mg-180 mg-60 mg-1,200 mg capsule, (Fish Oil) Previous Rx's Medication Instructions Recorded compr.stocking,knee,long,small #12 ea 11/17/20 (T.E.D. Knee Cwaxfc-S-Dquv) Allergies Allergy/AdvReac Type Severity Reaction Status Date / Time meperidine [From DEMEROL] Allergy Unknown UNKNOWN Verified 11/17/21 13:39 NARCOTIC ANTAGONIST AdvReac Unknown AGITATION Uncoded 11/03/20 13:03 AND MAKES HER ILL Review of Systems Review of Systems: Yes all other systems are reviewed and are negative PMFSH Past Medical History Medical History Elevated cholesterol Hypertension Hypothyroidism Surgical History H/O section Hx of appendectomy Social History Social History Household Members: None Housing: House Do you presently have visiting nurse or other home services: No Alcohol intake: former Patient Tobacco Use Status: Former Tobacco user Second Hand Smoke Exposure: No Use of substances other than those prescribed or required for medical reasons: No Advance Directives: No Advance Directives Information Provided: No service: No Current occupational status: retired Physical Exam Vital Signs: Vital Signs: Last Vital Signs Temp 97.7 F 11/17/21 13:40 Pulse 74 11/17/21 19:10 Resp 14 11/17/21 19:10 BP 123/68 11/17/21 19:10 Pulse Ox 97 11/17/21 19:10 BMI result Body Mass Index 32.6 Appearance: Alert. Oriented X3. No acute distress. Eyes: PERRLA, No Nystagmus ENT: Pharynx normal. Oral Mucosa moist Neck: Normal inspection. Neck supple. CVS: Normal heart rate and rhythm. Pulses normal. Respiratory: No respiratory distress. Equal air entry bilateral, no wheezing/rales/rhonchi Abdomen: Soft and nontender. Bowel sounds are present, no mass palpable, no CVA tenderness Skin: Skin warm and dry. Normal skin color. Normal skin turgor. Extremities: No lower extremity edema. No calf tenderness Neuro: Oriented X 3. No motor deficit. No sensory deficit.No cerebellar signs , cranial nerves II-XII intact MDM - Dizziness MDM Narrative Medical decision making narrative: patient nonspecific dizziness/weakness ambulatory in the ER without any significant problems orthostatic stable levels of also negative COVID test negative etiology of weakness not very clear sodium level is 131 which is her usual baseline. Will discharge patient home advised to follow with the PCP Lab Data Attestation: I reviewed the patient's lab results. Result diagrams: 11/17/21 13:53 11/17/21 13:52 Labs: Lab Results 11/17/21 11/17/21 11/17/21 Range/Units 13:52 13:53 13:53 WBC 5.5 (4.8-10.8) X10*3/uL RBC 3.81 L (4.20-5.50) X10*6/uL Hgb 12.0 (12.0-16.0) g/dl Hct 35.5 L (37.0-47.0) % MCV 93.2 (80.0-98.0) fL MCH 31.5 (27.0-33.0) pg MCHC 33.8 (31.0-35.0) g/dl RDW 12.9 (11.0-16.0) % Plt Count 260 (160-400) X10*3/uL MPV 9.1 L (9.4-12.3) fL Immature Gran % (Auto) 0.2 (0.0-0.4) % Neut % (Auto) 61.3 (45-73) % Lymph % (Auto) 29.9 (20-40) % [place] % (Auto) 7.5 (2-11) % Eos % (Auto) 0.4 (0-4) % Baso % (Auto) 0.7 (0-2) % Lymph # (Auto) 1.6 (1.2-4.9) X10*3/uL [place] # (Auto) 0.4 (0.1-1.2) X10*3/uL Eos # (Auto) 0.0 (0.0-0.4) X10*3/uL Baso # (Auto) 0.0 (0.0-0.2) X10*3/uL Abs Immat Gran (auto) 0.01 (0.00-0.03) X10*3/uL Absolute Neuts (auto) 3.4 (2.0-8.3) x10*3/uL Absolute Nucleated RBC 0.000 (0.0-0.012) X10*3/uL Nucleated RBC % (auto) 0.0 (0.0-0.2) /100WBC Sodium 131 L (135-145) mmol/L Potassium 4.6 (3.3-5.1) mmol/L Chloride 98 (96-108) mmol/L Carbon Dioxide 26 (22-29) mmol/L Anion Gap 12 (12-20) BUN 16 (9-16) mg/dL Creatinine 1.06 (0.5-1.4) mg/dL Estim Creat Clear Calc 47.3 Estimated GFR 50 Random Glucose 102 (60-115) mg/dL Calcium 10.3 H (8.4-10.2) mg/dL Total Bilirubin 0.6 (0.0-1.0) mg/dL Direct Bilirubin 0.3 (0.0-0.5) mg/dL AST 20 (5-31) U/L ALT 18 (0-31) U/L Alkaline Phosphatase 42 (39-117) U/L Troponin I High Sens 5.1 (<3.5-17.0) ng/L Total Protein 7.2 (6.5-8.0) g/dL Albumin 4.2 (3.5-5.0) g/dL Urine Color Urine Appearance Urine pH (5.0-8.0) Ur Specific [place] (1.005-1.025) Urine Protein (NEG-TRACE) MG/DL Urine Glucose (UA) (NEG) MG/DL Urine Ketones (NEG) MG/DL Urine Blood (NEG) Urine Nitrite (NEG) Ur Leukocyte Esterase (NEG) Urine RBC (0) /HPF Urine WBC (0-4) /HPF Ur Squamous Epith Cells /LPF Urine Bacteria /LPF COVID-19 ([facility]) (Negative) COVID-19 Clin Com Influenza Type A ([facility]KS) (Negative) Influenza Type B ([facility]) (Negative) Influenza A & B Note 11/17/21 11/17/21 11/17/21 Range/Units 16:42 16:42 18:37 WBC (4.8-10.8) X10*3/uL RBC (4.20-5.50) X10*6/uL Hgb (12.0-16.0) g/dl Hct (37.0-47.0) % MCV (80.0-98.0) fL MCH (27.0-33.0) pg MCHC (31.0-35.0) g/dl RDW (11.0-16.0) % Plt Count (160-400) X10*3/uL MPV (9.4-12.3) fL Immature Gran % (Auto) (0.0-0.4) % Neut % (Auto) (45-73) % Lymph % (Auto) (20-40) % [place] % (Auto) (2-11) % Eos % (Auto) (0-4) % Baso % (Auto) (0-2) % Lymph # (Auto) (1.2-4.9) X10*3/uL [place] # (Auto) (0.1-1.2) X10*3/uL Eos # (Auto) (0.0-0.4) X10*3/uL Baso # (Auto) (0.0-0.2) X10*3/uL Abs Immat Gran (auto) (0.00-0.03) X10*3/uL Absolute Neuts (auto) (2.0-8.3) x10*3/uL Absolute Nucleated RBC (0.0-0.012) X10*3/uL Nucleated RBC % (auto) (0.0-0.2) /100WBC Sodium (135-145) mmol/L Potassium (3.3-5.1) mmol/L Chloride (96-108) mmol/L Carbon Dioxide (22-29) mmol/L Anion Gap (12-20) BUN (9-16) mg/dL Creatinine (0.5-1.4) mg/dL Estim Creat Clear Calc Estimated GFR Random Glucose (60-115) mg/dL Calcium (8.4-10.2) mg/dL Total Bilirubin (0.0-1.0) mg/dL Direct Bilirubin (0.0-0.5) mg/dL AST (5-31) U/L ALT (0-31) U/L Alkaline Phosphatase (39-117) U/L Troponin I High Sens (<3.5-17.0) ng/L Total Protein (6.5-8.0) g/dL Albumin (3.5-5.0) g/dL Urine Color YELLOW Urine Appearance CLEAR Urine pH 6.0 (5.0-8.0) Ur Specific [place] 1.010 (1.005-1.025) Urine Protein NEG (NEG-TRACE) MG/DL Urine Glucose (UA) NEG (NEG) MG/DL Urine Ketones 5 (NEG) MG/DL Urine Blood TRACE (NEG) Urine Nitrite NEG (NEG) Ur Leukocyte Esterase NEG (NEG) Urine RBC 1-4 (0) /HPF Urine WBC 0 (0-4) /HPF Ur Squamous Epith Cells TRACE /LPF Urine Bacteria NONE /LPF COVID-19 ([facility]IA) Negative (Negative) COVID-19 Clin Com See Note Influenza Type A ([facility]KS) Negative (Negative) Influenza Type B ([facility]) Negative (Negative) Influenza A & B Note See Note ECG Data Attestation: I personally reviewed and interpreted this ECG as follows: Interpretation: normal sinus rhythm heart rate 97 beats per minute normal axis no acute ST T wave changes no acute ischemia occasional unifocal PVC Discharge Plan Discharge Clinical Impression: Weakness Patient Disposition: Home, Self-Care Instructions: Weakness (ED) Additional Instructions: drink plenty of fluids follow up with your PCP report to ER if any concern Prescriptions: No Action Fish Oil 120 mg-180 mg- 60 mg-1,200 mg Capsule,Delayed Release(Dr/Ec) 1 cap PO DAILY 0RF Centrum Women 18-400 mg-mcg Tablet 1 tab PO DAILY 0RF calcium citrate-vitamin D3 250 mg-5 mcg (200 unit) Tablet 1 tab PO DAILY 0RF (DME) T.E.D. Knee Lksqnz-J-Tuzs Misc See Rx Instructions .ROUTE .MEDSUPPLY Qty: 12 0RF Rx Instructions: As directed cyanocobalamin (vitamin B-12) 1,000 mcg tablet 1,000 mcg PO DAILY 0RF pravastatin 40 mg tablet 40 mg PO BEDTIME 0RF olmesartan 5 mg tablet 10 mg PO DAILY 0RF alendronate 70 mg tablet 70 mg PO LASSITER 0RF levothyroxine 50 mcg tablet 50 mcg PO DAILY@0600 0RF Interventions: ED Discharge Assessment Last Done: 11/17/21 19:11 Discharge Date/Time: 11/17/21 19:14
[2021-11-17 16:19] VITALS: BP 150/75; PULSE 87
[2021-11-17 16:33] VITALS: BP 148/72; PULSE 92; RESP 12; O2SAT 99
--- NOTE | 2021-11-17 16:35 | PC.NURSE ---
pt a&ox3, dizziness for 36hrs, similar to prev episode when she had low hyponatremia. engine monitor applied - sinus rhythm w occ PVCs.
[2021-11-17 16:39] VITALS: BP 161/80; PULSE 83
[2021-11-17 16:41] VITALS: BP 152/76; PULSE 95
[2021-11-17 16:52] LABS: Alanine Aminotransferase 18 U/L (0-31); Albumin Level 4.2 g/dL (3.5-5.0); Alkaline Phosphatase 42 U/L (39-117); Aspartate Amino Transferase 20 U/L (5-31); Bilirubin Direct 0.3 mg/dL (0.0-0.5); Bilirubin Total 0.6 mg/dL (0.0-1.0); Total Protein 7.2 g/dL (6.5-8.0)
[2021-11-17 16:54] LABS: Appearance Urine CLEAR; Color Urine YELLOW; Glucose Urine UA NEG (NEG); Leukocyte Esterase Urine NEG (NEG); Nitrite Urine NEG (NEG); UACC Culture Trigger NO; Urine Blood TRACE (NEG); Urine Ketones 5 MG/DL (NEG); Urine Protein NEG (NEG-TRACE)
[2021-11-17 17:05] LABS: COVID-19 Test Negative (Negative); IDNOW Serial# 16C4AD1C; Squamous Epithelial Cell Urine TRACE /LPF; WBC Urine 0 /HPF (0-4)
[2021-11-17 18:59] LABS: Influenza A Negative (Negative); Influenza B2 Negative (Negative)
[2021-11-17 19:10] VITALS: BP 123/68; PULSE 74; RESP 14; O2SAT 97
== END 2021-11-17 19:14 | disposition home or self-care (01) ==
PROVIDERS: Emergency Provider Internal Medicine; PCP Internal Medicine
DX: R42 Dizziness and giddiness (principal); R53.1 Weakness; R07.89 Other chest pain; Z20.822 Contact with and (suspected) exposure to COVID-19; Z79.899 Other long term (current) drug therapy; Z87.891 Personal history of nicotine dependence
CPT/HCPCS: 36415; 71045; 80048; 80076; 81001; 84484; 85025; 87502; 87635; 93005; 99284

== ENCOUNTER 2021-11-27 13:02 | Emergency (ER) | payer MEDICARE, BC, SELFPAY ==
--- NOTE | ~2021-11-27 | XR_ITS ---
EXAMINATION: XR CHEST CLINICAL INFORMATION: Difficulty breathing with generalized weakness COMPARISON: 11/17/2021 TECHNIQUE: 2 views of the chest were obtained. FINDINGS: The lungs are hyperaerated but grossly clear. No significant change. Heart and pulmonary vessels are normal. No congestive change. XR/XR chest 2V IMPRESSION: No active disease.
[2021-11-27 14:50] VITALS: BP 152/64; PULSE 84; RESP 18; TEMP 36.7; O2SAT 99; BMI 32.3
--- NOTE | 2021-11-27 14:58 | ECG_ITS ---
Test Reason : GENERAL WEAKNESS Blood Pressure : / mmHG Vent. Rate : 075 BPM Atrial Rate : 075 BPM P-R Int : 142 ms QRS Dur : 094 ms QT Int : 374 ms P-R-T Axes : 021 029 029 degrees QTc Int : 417 ms Sinus rhythm with occasional Premature ventricular complexes Otherwise normal ECG When compared with ECG of 17-NOV-2021 13:36, No significant change was found Referred By: Generic ED Physician Electronically Signed By:HARDY VIERA MD
[2021-11-27 15:09] LABS: Glucose, Whole Blood 85 mg/dL (60-115)
[2021-11-27 20:40] LABS: MANUAL DIFF FLAG NO
[2021-11-27 20:44] LABS: Basophils Percent Auto 0.5 % (0-2); Eosinophils Absolute Auto 0.1 X10*3/uL (0.0-0.4); Eosinophils Percent Auto 0.9 % (0-4); Hematocrit 35.4 % (37.0-47.0); Hemoglobin 11.9 g/dl (12.0-16.0); Imm Gran Abs Auto 0.02 X10*3/uL (0.00-0.03); Imm Gran Pct Auto 0.4 % (0.0-0.4); Lymphocytes Absolute Auto 2.1 X10*3/uL (1.2-4.9); Lymphocytes Percent Auto 38.8 % (20-40); Mean Corpuscular HGB Conc 33.6 g/dl (31.0-35.0); Mean Corpuscular Hemoglobin 31.5 pg (27.0-33.0); Mean Corpuscular Volume 93.7 fL (80.0-98.0); Monocytes Absolute Auto 0.4 X10*3/uL (0.1-1.2); Monocytes Percent Auto 7.9 % (2-11); Neutrophils Absolute Auto 2.8 x10*3/uL (2.0-8.3); Neutrophils Percent Auto 51.5 % (45-73); Platelet Count 248 X10*3/uL (160-400); Red Blood Count 3.78 X10*6/uL (4.20-5.50); Red Cell Distribution Width 12.8 % (11.0-16.0); White Blood Count 5.5 X10*3/uL (4.8-10.8)
[2021-11-27 20:56] LABS: IDNOW Serial# 16C4AD1C; Influenza A Negative (Negative); Influenza B2 Negative (Negative)
[2021-11-27 20:57] LABS: COVID-19 Test Negative (Negative)
[2021-11-27 20:58] LABS: Alanine Aminotransferase 14 U/L (0-31); Albumin Level 4.2 g/dL (3.5-5.0); Alkaline Phosphatase 39 U/L (39-117); Anion Gap 12 (12-20); Aspartate Amino Transferase 17 U/L (5-31); Bilirubin Total 0.9 mg/dL (0.0-1.0); Blood Urea Nitrogen 16 mg/dL (9-16); Calcium 9.7 mg/dL (8.4-10.2); Carbon Dioxide 23 mmol/L (22-29); Chloride 99 mmol/L (96-108); Creatinine Clr Calc Pharmacy 51.6; Estimated Glomerular Filt Rate 55; Glucose Random 94 mg/dL (60-115); Potassium 4.4 mmol/L (3.3-5.1); Sodium 130 mmol/L (135-145); Total Protein 7.1 g/dL (6.5-8.0)
[2021-11-28 01:03] LABS: Appearance Urine CLEAR; Color Urine YELLOW; Glucose Urine UA NEG (NEG); Leukocyte Esterase Urine 1+ (NEG); Nitrite Urine NEG (NEG); Specific Gravity - Urine 1.015 (1.005-1.025); UACC Culture Trigger YES; Urine Blood TRACE (NEG); Urine Ketones 15 MG/DL (NEG); Urine Protein NEG (NEG-TRACE)
[2021-11-28 01:09] LABS: Bacteria Urine 2+ /LPF; Mucus Urine 2+ /LPF; Squamous Epithelial Cell Urine 1+ /LPF
[2021-11-28 02:00] VITALS: BP 147/75; PULSE 78; RESP 16; TEMP 36.6; O2SAT 98
[2021-11-28] MEDS: cephALEXin 500 MG CAPSULE PO (03:53)
--- NOTE | 2021-11-28 03:54 | PC.NURSE ---
pt a&o, no chest pain, pt does report feeling a little sob. medicated per aug. Labs collected and sent. O2 in 98-100 room air. Will continue to monitor.
--- NOTE | 2021-11-28 03:59 | ED_ITS ---
HPI - Weakness General Chief complaint: Weakness Stated complaint: weak, wobbly Time Seen by Provider: 11/27/21 22:26 Source: patient and family (Daughter) Mode of arrival: ambulatory History of Present Illness HPI Narrative: 81-year-old female with history CHF and had been placed on diuretics previously, but due to complications with electrolyte imbalances this was discontinued. She presents this evening with increasing weakness, fatigue, feeling less energetic the past week denies any fever, chills states that she has been a little bit nauseous but no vomiting, no diarrhea, no chest pain/palpitations and further endorses that she notices that she has been a little more short of breath when she is walking back from her mailbox which is on a little bit of an incline. She denies any orthopnea. Related Data Home Medications Medication Instructions Recorded Confirmed alendronate 70 mg tablet 70 mg PO LASSITER 11/03/20 07/26/21 cyanocobalamin (vitamin B-12) 1,000 mcg PO DAILY 11/03/20 07/26/21 1,000 mcg tablet levothyroxine 50 mcg tablet 50 mcg PO DAILY@0600 11/03/20 07/26/21 olmesartan 5 mg tablet 10 mg PO DAILY 11/03/20 07/26/21 pravastatin 40 mg tablet 40 mg PO BEDTIME 11/03/20 07/26/21 calcium citrate 250 mg 1 tab PO DAILY 11/13/20 07/26/21 calcium-vitamin D3 5 mcg (200 unit) tablet multivitamin-ferrous 1 tab PO DAILY 11/13/20 07/26/21 fumarate-folic acid 18 mg-400 mcg tablet (Centrum Women) bbblb-[id number]-bao-epa-fish oil 120 1 cap PO DAILY 11/13/20 07/26/21 mg-180 mg-60 mg-1,200 mg capsule, DR (Fish Oil) Previous Rx's Medication Instructions Recorded compr.stocking,knee,long,small #12 ea 11/17/20 (T.E.D. Knee Jkbwnh-F-Nway) cephalexin 500 mg capsule 500 mg PO Q12H 5 Days #10 cap 11/28/21 Allergies Allergy/AdvReac Type Severity Reaction Status Date / Time meperidine [From DEMEROL] Allergy Unknown UNKNOWN Verified 11/27/21 14:49 NARCOTIC ANTAGONIST AdvReac Unknown AGITATION Uncoded 11/03/20 13:03 AND MAKES HER ILL Review of Systems Review of Systems: Pertinent positives and negatives as stated in HPI 10 point review of systems otherwise negative. [facility] Past Medical History Source: nursing notes reviewed Medical History Elevated cholesterol Hypertension Hypothyroidism Surgical History H/O section Hx of appendectomy Social History Social History Household Members: None Housing: House Do you presently have visiting nurse or other home services: No Alcohol intake: former Patient Tobacco Use Status: Former Tobacco user Second Hand Smoke Exposure: No Advance Directives: No service: No Current occupational status: retired Physical Exam Vital Signs: Vital Signs: Last Vital Signs Temp 97.9 F 11/28/21 02:00 Pulse 78 11/28/21 02:00 Resp 16 11/28/21 02:00 BP 147/75 H 11/28/21 02:00 Pulse Ox 98 11/28/21 02:00 BMI result Body Mass Index 32.3 VITAL SIGNS: Reviewed. GENERAL: Well developed, well nourished, in no acute distress. HEAD: Normocephalic/atraumatic EYES: PERRLA, EOMI EARS: Ext canals without abnormality OROPHARYNX: no oral lesions noted, posterior pharynx clear LUNGS: Normal breath sounds, small amount of rales at the right lung base, but otherwise lungs are clear, no tachypnea/rhonchi/wheeze SpO2<98> CARDIOVASCULAR: Regular rate and rhythm without noted murmurs, no JVD or lower extremity edema. ABDOMEN: Soft, non-tender, non-distended with bowel sounds. NEUROLOGIC: Alert and oriented x 4. Strength and sensation to light touch were grossly intact x 4. Course Course Course Narrative: 81-year-old female with history and clinical presentation most suggestive of, after review of all investigations UTI and will obtain BNP to further direct dispo. Patient received initial antibiotics here in the emergency room and will be discharged home in stable condition. She may receive a single dose of Lasix but is otherwise instructed to follow-up with her primary care provider. Although BNP is noted to be ?within normal limits? given the fact that patient is experiencing some mild dyspnea and noted to have rales but otherwise not hypoxic will provide a single dose of Lasix and discharged home. MDM - Weakness Lab Data Result diagrams: 11/27/21 20:34 11/27/21 20:34 Labs: Lab Results 11/27/21 11/27/21 11/27/21 Range/Units 14:55 20:32 20:32 WBC (4.8-10.8) X10*3/uL RBC (4.20-5.50) X10*6/uL Hgb (12.0-16.0) g/dl Hct (37.0-47.0) % MCV (80.0-98.0) fL MCH (27.0-33.0) pg MCHC (31.0-35.0) g/dl RDW (11.0-16.0) % Plt Count (160-400) X10*3/uL MPV (9.4-12.3) fL Immature Gran % (Auto) (0.0-0.4) % Neut % (Auto) (45-73) % Lymph % (Auto) (20-40) % [place] % (Auto) (2-11) % Eos % (Auto) (0-4) % Baso % (Auto) (0-2) % Lymph # (Auto) (1.2-4.9) X10*3/uL [place] # (Auto) (0.1-1.2) X10*3/uL Eos # (Auto) (0.0-0.4) X10*3/uL Baso # (Auto) (0.0-0.2) X10*3/uL Abs Immat Gran (auto) (0.00-0.03) X10*3/uL Absolute Neuts (auto) (2.0-8.3) x10*3/uL Absolute Nucleated RBC (0.0-0.012) X10*3/uL Nucleated RBC % (auto) (0.0-0.2) /100WBC Sodium (135-145) mmol/L Potassium (3.3-5.1) mmol/L Chloride (96-108) mmol/L Carbon Dioxide (22-29) mmol/L Anion Gap (12-20) BUN (9-16) mg/dL Creatinine (0.5-1.4) mg/dL Estim Creat Clear Calc Estimated GFR POC Glucose 85 (60-115) mg/dL Random Glucose (60-115) mg/dL Calcium (8.4-10.2) mg/dL Total Bilirubin (0.0-1.0) mg/dL AST (5-31) U/L ALT (0-31) U/L Alkaline Phosphatase (39-117) U/L B-Natriuretic Peptide (<100) pg/mL Total Protein (6.5-8.0) g/dL Albumin (3.5-5.0) g/dL Urine Color Urine Appearance Urine pH (5.0-8.0) Ur Specific [place] (1.005-1.025) Urine Protein (NEG-TRACE) MG/DL Urine Glucose (UA) (NEG) MG/DL Urine Ketones (NEG) MG/DL Urine Blood (NEG) Urine Nitrite (NEG) Ur Leukocyte Esterase (NEG) Urine RBC (0) /HPF Urine WBC (0-4) /HPF Ur Squamous Epith Cells /LPF Urine Bacteria /LPF Urine Mucus /LPF COVID-19 (INDIA) Negative (Negative) COVID-19 Clin Com See Note Influenza Type A (ALEKS) Negative (Negative) Influenza Type B (ALEKS) Negative (Negative) Influenza A & B Note See Note 11/27/21 11/27/21 11/28/21 Range/Units 20:34 20:34 00:36 WBC 5.5 (4.8-10.8) X10*3/uL RBC 3.78 L (4.20-5.50) X10*6/uL Hgb 11.9 L (12.0-16.0) g/dl Hct 35.4 L (37.0-47.0) % MCV 93.7 (80.0-98.0) fL MCH 31.5 (27.0-33.0) pg MCHC 33.6 (31.0-35.0) g/dl RDW 12.8 (11.0-16.0) % Plt Count 248 (160-400) X10*3/uL MPV 9.0 L (9.4-12.3) fL Immature Gran % (Auto) 0.4 (0.0-0.4) % Neut % (Auto) 51.5 (45-73) % Lymph % (Auto) 38.8 (20-40) % [place] % (Auto) 7.9 (2-11) % Eos % (Auto) 0.9 (0-4) % Baso % (Auto) 0.5 (0-2) % Lymph # (Auto) 2.1 (1.2-4.9) X10*3/uL [place] # (Auto) 0.4 (0.1-1.2) X10*3/uL Eos # (Auto) 0.1 (0.0-0.4) X10*3/uL Baso # (Auto) 0.0 (0.0-0.2) X10*3/uL Abs Immat Gran (auto) 0.02 (0.00-0.03) X10*3/uL Absolute Neuts (auto) 2.8 (2.0-8.3) x10*3/uL Absolute Nucleated RBC 0.000 (0.0-0.012) X10*3/uL Nucleated RBC % (auto) 0.0 (0.0-0.2) /100WBC Sodium 130 L (135-145) mmol/L Potassium 4.4 (3.3-5.1) mmol/L Chloride 99 (96-108) mmol/L Carbon Dioxide 23 (22-29) mmol/L Anion Gap 12 (12-20) BUN 16 (9-16) mg/dL Creatinine 0.97 (0.5-1.4) mg/dL Estim Creat Clear Calc 51.6 Estimated GFR 55 POC Glucose (60-115) mg/dL Random Glucose 94 (60-115) mg/dL Calcium 9.7 (8.4-10.2) mg/dL Total Bilirubin 0.9 (0.0-1.0) mg/dL AST 17 (5-31) U/L ALT 14 (0-31) U/L Alkaline Phosphatase 39 (39-117) U/L B-Natriuretic Peptide (<100) pg/mL Total Protein 7.1 (6.5-8.0) g/dL Albumin 4.2 (3.5-5.0) g/dL Urine Color YELLOW Urine Appearance CLEAR Urine pH 6.0 (5.0-8.0) Ur Specific [place] 1.015 (1.005-1.025) Urine Protein NEG (NEG-TRACE) MG/DL Urine Glucose (UA) NEG (NEG) MG/DL Urine Ketones 15 (NEG) MG/DL Urine Blood TRACE (NEG) Urine Nitrite NEG (NEG) Ur Leukocyte Esterase 1+ H (NEG) Urine RBC 1-4 (0) /HPF Urine WBC 1-4 (0-4) /HPF Ur Squamous Epith Cells 1+ /LPF Urine Bacteria 2+ /LPF Urine Mucus 2+ /LPF COVID-19 (INDIA) (Negative) COVID-19 Clin Com Influenza Type A (ALEKS) (Negative) Influenza Type B (ALEKS) (Negative) Influenza A & B Note 11/28/21 Range/Units 03:57 WBC (4.8-10.8) X10*3/uL RBC (4.20-5.50) X10*6/uL Hgb (12.0-16.0) g/dl Hct (37.0-47.0) % MCV (80.0-98.0) fL MCH (27.0-33.0) pg MCHC (31.0-35.0) g/dl RDW (11.0-16.0) % Plt Count (160-400) X10*3/uL MPV (9.4-12.3) fL Immature Gran % (Auto) (0.0-0.4) % Neut % (Auto) (45-73) % Lymph % (Auto) (20-40) % [place] % (Auto) (2-11) % Eos % (Auto) (0-4) % Baso % (Auto) (0-2) % Lymph # (Auto) (1.2-4.9) X10*3/uL [place] # (Auto) (0.1-1.2) X10*3/uL Eos # (Auto) (0.0-0.4) X10*3/uL Baso # (Auto) (0.0-0.2) X10*3/uL Abs Immat Gran (auto) (0.00-0.03) X10*3/uL Absolute Neuts (auto) (2.0-8.3) x10*3/uL Absolute Nucleated RBC (0.0-0.012) X10*3/uL Nucleated RBC % (auto) (0.0-0.2) /100WBC Sodium (135-145) mmol/L Potassium (3.3-5.1) mmol/L Chloride (96-108) mmol/L Carbon Dioxide (22-29) mmol/L Anion Gap (12-20) BUN (9-16) mg/dL Creatinine (0.5-1.4) mg/dL Estim Creat Clear Calc Estimated GFR POC Glucose (60-115) mg/dL Random Glucose (60-115) mg/dL Calcium (8.4-10.2) mg/dL Total Bilirubin (0.0-1.0) mg/dL AST (5-31) U/L ALT (0-31) U/L Alkaline Phosphatase (39-117) U/L B-Natriuretic Peptide 30 (<100) pg/mL Total Protein (6.5-8.0) g/dL Albumin (3.5-5.0) g/dL Urine Color Urine Appearance Urine pH (5.0-8.0) Ur Specific [place] (1.005-1.025) Urine Protein (NEG-TRACE) MG/DL Urine Glucose (UA) (NEG) MG/DL Urine Ketones (NEG) MG/DL Urine Blood (NEG) Urine Nitrite (NEG) Ur Leukocyte Esterase (NEG) Urine RBC (0) /HPF Urine WBC (0-4) /HPF Ur Squamous Epith Cells /LPF Urine Bacteria /LPF Urine Mucus /LPF COVID-19 (INDIA) (Negative) COVID-19 Clin Com Influenza Type A (ALEKS) (Negative) Influenza Type B (ALEKS) (Negative) Influenza A & B Note ECG Data Attestation: I personally reviewed and interpreted this ECG as follows: Prior ECG tracings: available for review Interpretation: Sinus rhythm with occasional PVCs, HR-75, no STEMI, [place]/QRS/QTC are within normal limits. Discharge Plan Discharge Clinical Impression: Acute UTI, Weakness, Dyspnea Patient Disposition: Home, Self-Care Instructions: Weakness (ED), Dyspnea (ED), Urinary Tract Infection in Older Adults (ED) Additional Instructions: 1. Resume all home medications as prescribed. 2. Complete the entire course of antibiotics as prescribed. 3. Please follow-up with your primary care provider by calling the office on to set up an appointment for re-evaluation. Return to the ER for worsening symptoms. Prescriptions: New cephalexin 500 mg capsule 500 mg PO Q12H 5 Days Qty: 10 0RF No Action Fish Oil 120 mg-180 mg- 60 mg-1,200 mg Capsule,Delayed Release(Dr/Ec) 1 cap PO DAILY 0RF Centrum Women 18-400 mg-mcg Tablet 1 tab PO DAILY 0RF calcium citrate-vitamin D3 250 mg-5 mcg (200 unit) Tablet 1 tab PO DAILY 0RF (DME) T.E.D. Knee Cmnwgg-U-Tpae Misc See Rx Instructions .ROUTE .MEDSUPPLY Qty: 12 0RF Rx Instructions: As directed cyanocobalamin (vitamin B-12) 1,000 mcg tablet 1,000 mcg PO DAILY 0RF pravastatin 40 mg tablet 40 mg PO BEDTIME 0RF olmesartan 5 mg tablet 10 mg PO DAILY 0RF alendronate 70 mg tablet 70 mg PO LASSITER 0RF levothyroxine 50 mcg tablet 50 mcg PO DAILY@0600 0RF Referrals: Savannah Preston MD [Primary Care Provider] -
[2021-11-28 04:21] LABS: B Type Natriuretic Peptide 30 pg/mL (<100)
[2021-11-28] MEDS: Furosemide 20 MG TABLET PO (04:49)
--- NOTE | 2021-11-28 05:01 | PC.NURSE ---
pt a&o, no increase sob or chest pain. pt medicated per aug. Reviewed discharge instructions pt and family.
== END 2021-11-28 05:05 | disposition home or self-care (01) ==
PROVIDERS: Emergency Provider Student in an Organized Health Care Education/Training Program; PCP Internal Medicine
DX: N39.0 Urinary tract infection, site not specified (principal); R53.1 Weakness; R06.00 Dyspnea, unspecified; I11.0 Hypertensive heart disease with heart failure; I50.9 Heart failure, unspecified; Z20.822 Contact with and (suspected) exposure to COVID-19
CPT/HCPCS: 36415; 71046; 80053; 81001; 81003; 82947; 83880; 85025; 87086; 87502; 87635; 93005; 99283; 99284

== ENCOUNTER 2022-12-30 13:36 | Emergency (ER) | payer MEDICARE, BC, SELFPAY ==
[2022-12-30 14:01] VITALS: BP 150/78; PULSE 87; RESP 18; TEMP 36.4; O2SAT 96; BMI 35.4
--- NOTE | 2022-12-30 14:05 | ED.GENADULT ---
HPI - General Adult General Chief complaint: General Medical Stated complaint: Weakness/Lightheaded Time Seen by Provider: 12/30/22 17:36 History of Present Illness HPI narrative: Seen by Dr. Palacios Related Data Home Medications Medication Instructions Recorded Confirmed alendronate 70 mg tablet 70 mg PO LASSITER 11/03/20 07/26/21 cyanocobalamin (vitamin B-12) 1,000 mcg PO DAILY 11/03/20 07/26/21 1,000 mcg tablet levothyroxine 50 mcg tablet 50 mcg PO DAILY@0600 11/03/20 07/26/21 olmesartan 5 mg tablet 10 mg PO DAILY 11/03/20 07/26/21 pravastatin 40 mg tablet 40 mg PO BEDTIME 11/03/20 07/26/21 calcium citrate 250 mg 1 tab PO DAILY 11/13/20 07/26/21 calcium-vitamin D3 5 mcg (200 unit) tablet multivitamin-ferrous 1 tab PO DAILY 11/13/20 07/26/21 fumarate-folic acid 18 mg-400 mcg tablet (Centrum Women) xonyx-[id number]-kud-epa-fish oil 120 1 cap PO DAILY 11/13/20 07/26/21 mg-180 mg-60 mg-1,200 mg capsule, (Fish Oil) Previous Rx's Medication Instructions Recorded compr.stocking,knee,long,small #12 ea 11/17/20 (T.E.D. Knee [place]av-[place] [place] cephalexin 500 mg capsule 500 mg PO Q12H 5 days #10 caps 11/28/21 Allergies Allergy/AdvReac Type Severity Reaction Status Date / Time meperidine [From DEMEROL] Allergy Unknown UNKNOWN Verified 11/27/21 14:49 NARCOTIC ANTAGONIST AdvReac Unknown AGITATION Uncoded 11/03/20 13:03 AND MAKES HER ILL PMF Past Medical History Medical History Elevated cholesterol Hypertension Hypothyroidism Surgical History H/O section Hx of appendectomy Social History Social History Household Members: None Housing: House Do you presently have visiting nurse or other home services: No Alcohol intake: never Patient Tobacco Use Status: Former Tobacco user Smoked in Last 30 Days: No Second Hand Smoke Exposure: No Use of substances other than those prescribed or required for medical reasons: No Advance Directives: No Advance Directives Information Provided: Yes service: No Current occupational status: retired Physical Exam ED Vital Signs: Vital Signs - 24 hr 12/30/22 14:01 Temperature 97.5 F Pulse Rate 87 Respiratory Rate 18 Blood Pressure 150/78 H Pulse Oximetry 96 Oxygen Delivery Method Room Air BMI result Body Mass Index 35.4 Course Course Course Narrative: RME: 82 yold female presents to the ED for generalized weakness since yesterday. patient states also slight cough. negative neuro deficits. labs, EKG, and UA ordered. SARS ordered Medical Decision Making Lab Data 12/30/22 14:14 12/30/22 14:14 Labs: Lab Results 12/30/22 12/30/22 12/30/22 Range/Units 14:14 14:14 14:14 WBC 5.6 (4.8-10.8) X10*3/uL RBC 3.73 L (4.20-5.50) X10*6/uL Hgb 11.9 L (12.0-16.0) g/dl Hct 34.6 L (37.0-47.0) % MCV 92.8 (80.0-98.0) fL MCH 31.9 (27.0-33.0) pg MCHC 34.4 (31.0-35.0) g/dl RDW 13.2 (11.0-16.0) % Plt Count 265 (160-400) X10*3/uL MPV 8.9 L (9.4-12.3) fL Immature Gran % (Auto) 0.4 (0.0-0.4) % Neut % (Auto) 59.0 (45-73) % Lymph % (Auto) 31.3 (20-40) % [place] % (Auto) 7.7 (2-11) % Eos % (Auto) 0.9 (0-4) % Baso % (Auto) 0.7 (0-2) % Lymph # (Auto) 1.8 (1.2-4.9) X10*3/uL [place] # (Auto) 0.4 (0.1-1.2) X10*3/uL Eos # (Auto) 0.1 (0.0-0.4) X10*3/uL Baso # (Auto) 0.0 (0.0-0.2) X10*3/uL Abs Immat Gran (auto) 0.02 (0.00-0.03) X10*3/uL Absolute Neuts (auto) 3.3 (2.0-8.3) x10*3/uL Absolute Nucleated RBC 0.000 (0.0-0.012) X10*3/uL Nucleated RBC % (auto) 0.0 (0.0-0.2) /100WBC Sodium 134 L (135-145) mmol/L Potassium 4.6 (3.3-5.1) mmol/L Chloride 103 (96-108) mmol/L Carbon Dioxide 23 (22-29) mmol/L Anion Gap 13 (12-20) BUN 22 H (9-16) mg/dL Creatinine 1.10 (0.5-1.4) mg/dL Estim Creat Clear Calc 43.6 Estimated GFR 48 Random Glucose 99 (60-115) mg/dL Calcium 10.5 H D (8.4-10.2) mg/dL Total Bilirubin 0.7 (0.0-1.0) mg/dL AST 17 (5-31) U/L ALT 13 (0-31) U/L Alkaline Phosphatase 41 (39-117) U/L Troponin I High Sens (<3.5-17.0) ng/L B-Natriuretic Peptide (<100) pg/mL Total Protein 7.2 (6.5-8.0) g/dL Albumin 4.2 (3.5-5.0) g/dL TSH 2.17 (0.32-4.0) uIU/mL Urine Color Urine Appearance Urine pH (5.0-9.0) Ur Specific [place] (1.005-1.025) Urine Protein (Neg-Trace) mg/dL Urine Glucose (UA) (Negative) mg/dL Urine Ketones (Negative) mg/dL Urine Blood (Negative) Urine Nitrite (Negative) Ur Leukocyte Esterase (Negative) Urine RBC (0-2) /HPF Urine WBC (0-5) /HPF Ur Squamous Epith Cells (0-2) /HPF Urine Bacteria (None Seen) Hyaline Casts (0-2) /LPF Influenza Type A (PCR) NEGATIVE (Negative) Influenza Type B (PCR) NEGATIVE (Negative) RSV RNA Qual (PCR) NEGATIVE (Negative) SARS-CoV-2 RNA (RT-PCR) NEGATIVE (Negative) 12/30/22 12/30/22 12/30/22 Range/Units 14:14 14:14 17:57 WBC (4.8-10.8) X10*3/uL RBC (4.20-5.50) X10*6/uL Hgb (12.0-16.0) g/dl Hct (37.0-47.0) % MCV (80.0-98.0) fL MCH (27.0-33.0) pg MCHC (31.0-35.0) g/dl RDW (11.0-16.0) % Plt Count (160-400) X10*3/uL MPV (9.4-12.3) fL Immature Gran % (Auto) (0.0-0.4) % Neut % (Auto) (45-73) % Lymph % (Auto) (20-40) % [place] % (Auto) (2-11) % Eos % (Auto) (0-4) % Baso % (Auto) (0-2) % Lymph # (Auto) (1.2-4.9) X10*3/uL [place] # (Auto) (0.1-1.2) X10*3/uL Eos # (Auto) (0.0-0.4) X10*3/uL Baso # (Auto) (0.0-0.2) X10*3/uL Abs Immat Gran (auto) (0.00-0.03) X10*3/uL Absolute Neuts (auto) (2.0-8.3) x10*3/uL Absolute Nucleated RBC (0.0-0.012) X10*3/uL Nucleated RBC % (auto) (0.0-0.2) /100WBC Sodium (135-145) mmol/L Potassium (3.3-5.1) mmol/L Chloride (96-108) mmol/L Carbon Dioxide (22-29) mmol/L Anion Gap (12-20) BUN (9-16) mg/dL Creatinine (0.5-1.4) mg/dL Estim Creat Clear Calc Estimated GFR Random Glucose (60-115) mg/dL Calcium (8.4-10.2) mg/dL Total Bilirubin (0.0-1.0) mg/dL AST (5-31) U/L ALT (0-31) U/L Alkaline Phosphatase (39-117) U/L Troponin I High Sens 5.0 (<3.5-17.0) ng/L B-Natriuretic Peptide 76 (<100) pg/mL Total Protein (6.5-8.0) g/dL Albumin (3.5-5.0) g/dL TSH (0.32-4.0) uIU/mL Urine Color Yellow Urine Appearance Clear Urine pH 6.0 (5.0-9.0) Ur Specific [place] <= 1.005 (1.005-1.025) Urine Protein Negative (Neg-Trace) mg/dL Urine Glucose (UA) Negative (Negative) mg/dL Urine Ketones Trace (Negative) mg/dL Urine Blood Trace H (Negative) Urine Nitrite Negative (Negative) Ur Leukocyte Esterase Trace H (Negative) Urine RBC 0-2 (0-2) /HPF Urine WBC 0-5 (0-5) /HPF Ur Squamous Epith Cells 0-2 (0-2) /HPF Urine Bacteria None Seen (None Seen) Hyaline Casts 0-2 (0-2) /LPF Influenza Type A (PCR) (Negative) Influenza Type B (PCR) (Negative) RSV RNA Qual (PCR) (Negative) SARS-CoV-2 RNA (RT-PCR) (Negative) Discharge Plan Discharge Clinical Impression: Weakness Patient Disposition: Home, Self-Care Instructions: Weakness (ED) Prescriptions: No Action Fish Oil 120 mg-180 mg- 60 mg-1,200 mg Capsule,Delayed Release(Dr/Ec) 1 cap PO DAILY Centrum Women 18-400 mg-mcg Tablet 1 tab PO DAILY calcium citrate-vitamin D3 250 mg-5 mcg (200 unit) Tablet 1 tab PO DAILY (DME) T.E.D. Knee Yqborl-C-Dsqi Misc See Rx Instructions .ROUTE .MEDSUPPLY Qty: 12 0RF Rx Instructions: As directed cephalexin 500 mg capsule 500 mg PO Q12H 5 Days Qty: 10 0RF cyanocobalamin (vitamin B-12) 1,000 mcg tablet 1,000 mcg PO DAILY pravastatin 40 mg tablet 40 mg PO BEDTIME olmesartan 5 mg tablet 10 mg PO DAILY alendronate 70 mg tablet 70 mg PO LASSITER levothyroxine 50 mcg tablet 50 mcg PO DAILY@0600 Referrals: Savannah Preston MD [Primary Care Provider] - 01/01/23 Interventions: ED Discharge Assessment Last Done: 12/30/22 19:51 Discharge Date/Time: 12/30/22 19:51
--- NOTE | 2022-12-30 18:01 | ED.GENADULT ---
HPI - General Adult General Chief complaint: General Medical Stated complaint: Weakness/Lightheaded Time Seen by Provider: 12/30/22 17:36 History of Present Illness HPI narrative: Patient is an 82-year-old female presents today with having generalized malaise. It has been ongoing for last few days. There has been no new medication. There is no fever no chills no cough no congestion. No pain on urination. There is no chest pain. There is no diaphoresis. There is no change in sleep pattern. There is no change to patient's hair or voice. She has a history of hypothyroid in the past. Patient is already on Synthroid 50 mg. Denies N noticing any bloody stool. There is no chest pain. There is no focal weakness. Just a generalized weakness not quite right. Related Data Home Medications Medication Instructions Recorded Confirmed alendronate 70 mg tablet 70 mg PO LASSITER 11/03/20 07/26/21 cyanocobalamin (vitamin B-12) 1,000 mcg PO DAILY 11/03/20 07/26/21 1,000 mcg tablet levothyroxine 50 mcg tablet 50 mcg PO DAILY@0600 11/03/20 07/26/21 olmesartan 5 mg tablet 10 mg PO DAILY 11/03/20 07/26/21 pravastatin 40 mg tablet 40 mg PO BEDTIME 11/03/20 07/26/21 calcium citrate 250 mg 1 tab PO DAILY 11/13/20 07/26/21 calcium-vitamin D3 5 mcg (200 unit) tablet multivitamin-ferrous 1 tab PO DAILY 11/13/20 07/26/21 fumarate-folic acid 18 mg-400 mcg tablet (Centrum Women) hhpkg-[id number]-epa-fish oil 120 1 cap PO DAILY 11/13/20 07/26/21 mg-180 mg-60 mg-1,200 mg capsule, DR (Fish Oil) Previous Rx's Medication Instructions Recorded compr.stocking,knee,long,small #12 ea 11/17/20 (T.E.D. Knee [place] [place] cephalexin 500 mg capsule 500 mg PO Q12H 5 days #10 caps 11/28/21 Allergies Allergy/AdvReac Type Severity Reaction Status Date / Time meperidine [From DEMEROL] Allergy Unknown UNKNOWN Verified 11/27/21 14:49 NARCOTIC ANTAGONIST AdvReac Unknown AGITATION Uncoded 11/03/20 13:03 AND MAKES HER ILL Review of Systems Review of Systems: Positive generalized malaise Yes all other systems are reviewed and are negative [facility] Past Medical History Attestation statement: The following information was validated with the patient. Medical History Elevated cholesterol Hypertension Hypothyroidism Surgical History H/O section Hx of appendectomy Social History Social History Household Members: None Housing: House Do you presently have visiting nurse or other home services: No Alcohol intake: never Patient Tobacco Use Status: Former Tobacco user Smoked in Last 30 Days: No Second Hand Smoke Exposure: No Use of substances other than those prescribed or required for medical reasons: No Advance Directives: No Advance Directives Information Provided: Yes service: No Current occupational status: retired Physical Exam ED Vital Signs: Vital Signs - 24 hr 12/30/22 14:01 12/30/22 18:53 Temperature 97.5 F 98.5 F Pulse Rate 87 81 Respiratory Rate 18 16 Blood Pressure 150/78 H 148/76 H Pulse Oximetry 96 97 Oxygen Delivery Method Room Air Room Air BMI result Body Mass Index 35.4 Appearance: Alert. Oriented X3. No acute distress. Eyes: Pupils equal, round and reactive to light. ENT: Pharynx normal. Neck: Normal inspection. Neck supple. No lymph nodes noted. No crepitus CVS: Normal heart rate and rhythm. Pulses normal. Normal S1 and S2 Respiratory: No respiratory distress. Breath sounds normal. No Wheezing. No rales Abdomen: Soft and nontender. No rigidity. No distention. good BS x4 Skin: Skin warm and dry. Normal skin color. Normal skin turgor. Extremities: No lower extremity edema. Neurovascular intact to all extremities. No Lacerations. No Rash Neuro: Oriented X 3. No motor deficit. No sensory deficit. Moving all extermities. No slurred speech Medical Decision Making Medical Decision Making MDM Narrative: Patient is a 82-year-old female presents today with generalized malaise. Not quite right. Denies any focal weakness. No headache. No trauma. Able to ambulate. Patient's hemoglobin is 11.9 which is approximately baseline. Patient's creatinine is normal there is no evidence for acute renal failure. Patient's TSH is normal there is no evidence for hypothyroid patient's chest x-ray showed no evidence of pneumonia pneumothorax. Patient's EKG appears normal. For flu RSV COVID were all negative. Her kidney functions normal. Her urine showed no signs of infection. Still feels okay will discharge patient home close follow-up Differential Diagnosis Pneumonia, urinary tract infection, ACS, electrolyte disturbance, anemia Lab Data MDM Lab Attestation statement: I reviewed the patient's lab results. 12/30/22 14:14 12/30/22 14:14 Labs: Lab Results 12/30/22 12/30/22 12/30/22 Range/Units 14:14 14:14 14:14 WBC 5.6 (4.8-10.8) X10*3/uL RBC 3.73 L (4.20-5.50) X10*6/uL Hgb 11.9 L (12.0-16.0) g/dl Hct 34.6 L (37.0-47.0) % MCV 92.8 (80.0-98.0) fL MCH 31.9 (27.0-33.0) pg MCHC 34.4 (31.0-35.0) g/dl RDW 13.2 (11.0-16.0) % Plt Count 265 (160-400) X10*3/uL MPV 8.9 L (9.4-12.3) fL Immature Gran % (Auto) 0.4 (0.0-0.4) % Neut % (Auto) 59.0 (45-73) % Lymph % (Auto) 31.3 (20-40) % [place] % (Auto) 7.7 (2-11) % Eos % (Auto) 0.9 (0-4) % Baso % (Auto) 0.7 (0-2) % Lymph # (Auto) 1.8 (1.2-4.9) X10*3/uL [place] # (Auto) 0.4 (0.1-1.2) X10*3/uL Eos # (Auto) 0.1 (0.0-0.4) X10*3/uL Baso # (Auto) 0.0 (0.0-0.2) X10*3/uL Abs Immat Gran (auto) 0.02 (0.00-0.03) X10*3/uL Absolute Neuts (auto) 3.3 (2.0-8.3) x10*3/uL Absolute Nucleated RBC 0.000 (0.0-0.012) X10*3/uL Nucleated RBC % (auto) 0.0 (0.0-0.2) /100WBC Sodium 134 L (135-145) mmol/L Potassium 4.6 (3.3-5.1) mmol/L Chloride 103 (96-108) mmol/L Carbon Dioxide 23 (22-29) mmol/L Anion Gap 13 (12-20) BUN 22 H (9-16) mg/dL Creatinine 1.10 (0.5-1.4) mg/dL Estim Creat Clear Calc 43.6 Estimated GFR 48 Random Glucose 99 (60-115) mg/dL Calcium 10.5 H D (8.4-10.2) mg/dL Total Bilirubin 0.7 (0.0-1.0) mg/dL AST 17 (5-31) U/L ALT 13 (0-31) U/L Alkaline Phosphatase 41 (39-117) U/L Troponin I High Sens (<3.5-17.0) ng/L B-Natriuretic Peptide (<100) pg/mL Total Protein 7.2 (6.5-8.0) g/dL Albumin 4.2 (3.5-5.0) g/dL TSH 2.17 (0.32-4.0) uIU/mL Urine Color Urine Appearance Urine pH (5.0-9.0) Ur Specific [place] (1.005-1.025) Urine Protein (Neg-Trace) mg/dL Urine Glucose (UA) (Negative) mg/dL Urine Ketones (Negative) mg/dL Urine Blood (Negative) Urine Nitrite (Negative) Ur Leukocyte Esterase (Negative) Urine RBC (0-2) /HPF Urine WBC (0-5) /HPF Ur Squamous Epith Cells (0-2) /HPF Urine Bacteria (None Seen) Hyaline Casts (0-2) /LPF Influenza Type A (PCR) NEGATIVE (Negative) Influenza Type B (PCR) NEGATIVE (Negative) RSV RNA Qual (PCR) NEGATIVE (Negative) SARS-CoV-2 RNA (RT-PCR) NEGATIVE (Negative) 12/30/22 12/30/22 12/30/22 Range/Units 14:14 14:14 17:57 WBC (4.8-10.8) X10*3/uL RBC (4.20-5.50) X10*6/uL Hgb (12.0-16.0) g/dl Hct (37.0-47.0) % MCV (80.0-98.0) fL MCH (27.0-33.0) pg MCHC (31.0-35.0) g/dl RDW (11.0-16.0) % Plt Count (160-400) X10*3/uL MPV (9.4-12.3) fL Immature Gran % (Auto) (0.0-0.4) % Neut % (Auto) (45-73) % Lymph % (Auto) (20-40) % [place] % (Auto) (2-11) % Eos % (Auto) (0-4) % Baso % (Auto) (0-2) % Lymph # (Auto) (1.2-4.9) X10*3/uL [place] # (Auto) (0.1-1.2) X10*3/uL Eos # (Auto) (0.0-0.4) X10*3/uL Baso # (Auto) (0.0-0.2) X10*3/uL Abs Immat Gran (auto) (0.00-0.03) X10*3/uL Absolute Neuts (auto) (2.0-8.3) x10*3/uL Absolute Nucleated RBC (0.0-0.012) X10*3/uL Nucleated RBC % (auto) (0.0-0.2) /100WBC Sodium (135-145) mmol/L Potassium (3.3-5.1) mmol/L Chloride (96-108) mmol/L Carbon Dioxide (22-29) mmol/L Anion Gap (12-20) BUN (9-16) mg/dL Creatinine (0.5-1.4) mg/dL Estim Creat Clear Calc Estimated GFR Random Glucose (60-115) mg/dL Calcium (8.4-10.2) mg/dL Total Bilirubin (0.0-1.0) mg/dL AST (5-31) U/L ALT (0-31) U/L Alkaline Phosphatase (39-117) U/L Troponin I High Sens 5.0 (<3.5-17.0) ng/L B-Natriuretic Peptide 76 (<100) pg/mL Total Protein (6.5-8.0) g/dL Albumin (3.5-5.0) g/dL TSH (0.32-4.0) uIU/mL Urine Color Yellow Urine Appearance Clear Urine pH 6.0 (5.0-9.0) Ur Specific [place] <= 1.005 (1.005-1.025) Urine Protein Negative (Neg-Trace) mg/dL Urine Glucose (UA) Negative (Negative) mg/dL Urine Ketones Trace (Negative) mg/dL Urine Blood Trace H (Negative) Urine Nitrite Negative (Negative) Ur Leukocyte Esterase Trace H (Negative) Urine RBC 0-2 (0-2) /HPF Urine WBC 0-5 (0-5) /HPF Ur Squamous Epith Cells 0-2 (0-2) /HPF Urine Bacteria None Seen (None Seen) Hyaline Casts 0-2 (0-2) /LPF Influenza Type A (PCR) (Negative) Influenza Type B (PCR) (Negative) RSV RNA Qual (PCR) (Negative) SARS-CoV-2 RNA (RT-PCR) (Negative) Independent Interpretation I performed an independent interpretation of an: EKG Interpretation: Sinus rhythm heart rate is 75 p.r. cares QT within normal limits is no acute ST segment elevation noted. Radiology Impression Discussion of test interpretation with radiology: I have reviewed the radiologist's reading. Chronic Conditions High cholesterol, hypertension, hypothyroid Discharge Plan Discharge Clinical Impression: Weakness Patient Disposition: Home, Self-Care Instructions: Weakness (ED) Prescriptions: No Action Fish Oil 120 mg-180 mg- 60 mg-1,200 mg Capsule,Delayed Release(Dr/Ec) 1 cap PO DAILY Centrum Women 18-400 mg-mcg Tablet 1 tab PO DAILY calcium citrate-vitamin D3 250 mg-5 mcg (200 unit) Tablet 1 tab PO DAILY (DME) T.E.D. Knee Epvhtr-W-Cjpz Misc See Rx Instructions .ROUTE .MEDSUPPLY Qty: 12 0RF Rx Instructions: As directed cephalexin 500 mg capsule 500 mg PO Q12H 5 Days Qty: 10 0RF cyanocobalamin (vitamin B-12) 1,000 mcg tablet 1,000 mcg PO DAILY pravastatin 40 mg tablet 40 mg PO BEDTIME olmesartan 5 mg tablet 10 mg PO DAILY alendronate 70 mg tablet 70 mg PO LASSITER levothyroxine 50 mcg tablet 50 mcg PO DAILY@0600 Referrals: Savannah Preston MD [Primary Care Provider] - 01/01/23
[2022-12-30 18:53] VITALS: BP 148/76; PULSE 81; RESP 16; TEMP 36.9; O2SAT 97
== END 2022-12-30 19:51 | disposition home or self-care (01) ==
PROVIDERS: Emergency Provider Emergency Medicine Emergency Medical Services; PCP Internal Medicine
DX: R53.1 Weakness (principal); Z20.822 Contact with and (suspected) exposure to COVID-19; Z20.828 Contact with and (suspected) exposure to other viral communicable diseases; I10 Essential (primary) hypertension; E78.5 Hyperlipidemia, unspecified; Z79.899 Other long term (current) drug therapy; Z87.891 Personal history of nicotine dependence
CPT/HCPCS: 0241U; 36415; 71045; 80053; 81001; 83880; 84443; 84484; 85025; 93005; 99283; 99284

== ENCOUNTER 2023-01-11 09:51 | Emergency (ER) | payer MEDICARE, BC, SELFPAY ==
--- NOTE | ~2023-01-11 | CT_ITS ---
EXAMINATION: CT HEAD WITHOUT CONTRAST CLINICAL INFORMATION: Left ear pain, off balance. COMPARISON: Head CT scan dated 06/28/2020. TECHNIQUE: Contiguous axial imaging was performed from the skull base to vertex without intravenous administration of contrast. Coronal and sagittal reformatted images were obtained. This CT examination was performed using dose optimization techniques as appropriate, variously including the following: *Automated exposure control *Adjustment of mA and/or kV according to patient size (this includes techniques or standardized protocols for targeted exams where dose is matched to indication/reason for exam; i.e. extremities or head) *Use of iterative reconstruction technique DLP: 685 mGy-cm FINDINGS: There is mild widening of the cortical sulci and associated ventriculomegaly. The lateral ventricles are symmetrical. The third and fourth ventricles are in their normal midline position. The basilar and prepontine cisterns are unremarkable. Mild periventricular microvascular changes are seen. There is no acute intra or extracerebral abnormality. There is no mass effect or midline shift. Sections through the bony calvarium are unremarkable. The orbits are intact. The paranasal sinuses show a retention cyst versus inflammatory polyp off of the superomedial margin of the right maxillary sinus measuring 2.4 cm (image 60, series 7). No air-fluid levels. The mastoid air cells are clear. The external auditory canals are patent. The middle and inner ear structures are unremarkable. CT/CT head/brain wo IV con IMPRESSION: 1. No acute intracranial abnormality. 2. Right maxillary inflammatory polyp/retention cyst without other significant abnormality. 3. No significant temporal bone abnormality.
--- NOTE | ~2023-01-11 | XR_ITS ---
EXAMINATION: XR CHEST CLINICAL INFORMATION: Fatigue. COMPARISON: Most recent chest radiograph dated 12/30/2022. TECHNIQUE: Frontal view of the chest was obtained. FINDINGS: The lungs are clear. The cardiomediastinal silhouette is normal in size. There is no pleural effusion or pneumothorax. No acute osseous abnormality. XR/XR chest 1V IMPRESSION: No acute cardiopulmonary findings.
[2023-01-11 09:58] VITALS: BP 136/71; PULSE 97; RESP 18; TEMP 36.4; O2SAT 95; BMI 35.6
[2023-01-11 10:29] VITALS: BP 132/63; PULSE 78; RESP 18; TEMP 36.8; O2SAT 95
--- NOTE | 2023-01-11 10:33 | PC.NURSE ---
Alert and oriented. Reports that she has been having a sensation in her left ear that is hard for her to explain. States it is not pain or a pressure but a feeling of a vibration in her ear when she speaks. States feels like her ear is hollow. Denies chest pain, sob, or headache. States when she has this feeling in her ear she feels off balance with some nausea. Denies past hx of vertigo.
--- NOTE | 2023-01-11 10:44 | ED_ITS ---
HPI - General Adult General Chief complaint: General Medical Stated complaint: multiple symptoms Time Seen by Provider: 01/11/23 10:44 Source: patient, family, RN notes reviewed and old records reviewed Mode of arrival: ambulatory History of Present Illness HPI narrative: 82-year-old female with a past medical history of HLD, HTN, hypothyroid, presenting to the ED complaining of left ear discomfort/ feeling blocked, generalized fatigue/weakness, and feeling off balance/ wobbly x 2 weeks. Admits symptoms are intermittent however occur daily. Patient was evaluated in our ED on 12/30 for similar symptoms, had labs and x-ray which showed pulmonary nodule, otherwise unremarkable. Denies fever, vision changes/loss, headache, neck pain, CP/SOB, abdominal pain, dysuria/hematuria Onset (ago): week(s) Related Data Home Medications Medication Instructions Recorded Confirmed alendronate 70 mg tablet 70 mg PO LASSITER 11/03/20 07/26/21 cyanocobalamin (vitamin B-12) 1,000 mcg PO DAILY 11/03/20 07/26/21 1,000 mcg tablet levothyroxine 50 mcg tablet 50 mcg PO DAILY@0600 11/03/20 07/26/21 olmesartan 5 mg tablet 10 mg PO DAILY 11/03/20 07/26/21 pravastatin 40 mg tablet 40 mg PO BEDTIME 11/03/20 07/26/21 calcium citrate 250 mg 1 tab PO DAILY 11/13/20 07/26/21 calcium-vitamin D3 5 mcg (200 unit) tablet multivitamin-ferrous 1 tab PO DAILY 11/13/20 07/26/21 fumarate-folic acid 18 mg-400 mcg tablet (Centrum Women) [id number]-[id number]-epa-fish oil 120 1 cap PO DAILY 11/13/20 07/26/21 mg-180 mg-60 mg-1,200 mg capsule, DR (Fish Oil) Previous Rx's Medication Instructions Recorded compr.stocking,knee,long,small #12 ea 11/17/20 (T.E.D. Knee [facility] [place] cephalexin 500 mg capsule 500 mg PO Q12H 5 days #10 caps 11/28/21 Allergies Allergy/AdvReac Type Severity Reaction Status Date / Time meperidine [From DEMEROL] AdvReac Intermediate Agitated Verified 01/11/23 09:58 NARCOTIC ANTAGONIST AdvReac Intermediate AGITATION Uncoded 01/11/23 09:58 AND MAKES HER ILL Review of Systems Review of Systems: Constitutional: No Fever, No Chills, + Fatigue, + Malaise ENT/Mouth: +clogged ear, No Ear Pain, No Hoarseness, No sore throat, No Rhino rrhea, No Swallowing Difficulty Eyes: No Eye Pain, No Swelling, No Redness, No Vision Changes Cardiovascular: No Chest Pain, No SOB, No Dyspnea on Exertion, No Orthopnea, No Edema, No Palpitations Respiratory: No Cough, No Sputum, No Dyspnea Gastrointestinal: + Nausea, No Vomiting, No Diarrhea, No Constipation, No Abdominal pain Genitourinary: No irregular bleeding, No Dysuria, No Hematuria, No Urgency, No Flank Pain Musculoskeletal: No joint pain, No Myalgias, No Joint Swelling Skin: No Skin Lesions, No rash Neuro: + Weakness, No Numbness, No Paresthesias, No Loss of Consciousness, + off balance/ Dizziness, No Headache Yes all other systems are reviewed and are negative Constitutional: Constitutional: Reports as per HPI Neurologic: Denies Abnormal speech present [facility] Past Medical History Attestation statement: The following information was validated with the patient. Source: old records reviewed Medical History Elevated cholesterol Hypertension Hypothyroidism Surgical History H/O section Hx of appendectomy Social History Social History Household Members: None Housing: House Do you presently have visiting nurse or other home services: No Alcohol intake: former Patient Tobacco Use Status: Former Tobacco user Smoked in Last 30 Days: No Second Hand Smoke Exposure: No Use of substances other than those prescribed or required for medical reasons: No Advance Directives: No service: No Current occupational status: retired Physical Exam ED Vital Signs: Vital Signs - 24 hr 01/11/23 09:58 01/11/23 10:29 01/11/23 12:01 Temperature 97.5 F 98.2 F Pulse Rate 97 78 81 Respiratory Rate 18 18 Blood Pressure 136/71 132/63 140/69 H Pulse Oximetry 95 95 Oxygen Delivery Method Room Air Room Air 01/11/23 12:02 01/11/23 12:03 01/11/23 13:53 Temperature Pulse Rate 91 83 78 Respiratory Rate 18 Blood Pressure 131/72 133/67 127/60 Pulse Oximetry 98 Oxygen Delivery Method Room Air BMI result Body Mass Index 35.6 Const General: cooperative, healthy appearing and no acute distress Orientation/consciousness: patient oriented x3 Limitations: no limitations HENMT Head: Yes normal to inspection and Yes atraumatic Ears: hearing grossly normal bilaterally, external ears normal, TM's normal bilaterally and mastoids normal General nose exam: Normal external nose present Face and sinus: Yes normal facial exam Throat: Yes posterior oropharynx normal, Yes tonsils normal, Yes uvula midline, No peritonsillar mass and No uvula laterally displaced Eyes General: appearance normal, both eyes and all related structures Pupils: Equal, round and reactive pupils present EOM: EOMs intact bilaterally Neck Neck: Yes normal visual inspection and Yes no meningeal signs Resp Effort & Inspection: normal respiratory effort and no respiratory distress Auscultation: clear to auscultation bilaterally, no crackles, no rhonchi and no wheezes Cardio Rate: regular rate Heart sounds: S1 normal heart sound present and S2 normal heart sound present GI Inspection: Yes normal to inspection Palpation (GI): Soft to palpation, nontender, no guarding and not rigid Skin Rashes: no rashes Wounds: no wounds Neuro General: patient oriented x3, gait normal, tone normal, moves all extremities, no meningeal signs, no focal motor deficits and CN's II-XI intact bilaterally Cranial nerves: Yes CN's II-XII intact bilaterally, Yes Equal, round and reac tive pupils present and Yes Bilaterally intact EOM present Cognition (Neuro): normal cognition Speech: No Abnormal speech present Gait exam (Neuro): Normal gait present Motor exam (neuro): 5/5 motor strength present throughout, Pronator motor function not present and no tremor noted Coordination: [id number] test normal Romberg Test: Negative Extrem General: Yes normal to inspection and Yes no pedal edema Course Course Course Narrative: -no leukocytosis. H&H stable. Acute on chronic hyponatremia to 130. BUN chronically elevated -initial troponin 5.9 > will obtain 3 hour repeat. -UA contaminated XR chest 1V IMPRESSION: No acute cardiopulmonary findings. CT head/brain wo IV con IMPRESSION: 1. No acute intracranial abnormality. 2. Right maxillary inflammatory polyp/retention cyst without other significant abnormality. 3. No significant temporal bone abnormality. ? -orthostatic vital signs negative -1544--repeat troponin equivocal, DE likely >> results discussed with patient and daughter at bedside, recommended close ENT follow-up as well as PCP follow-up. Likely will need MRI outpatient. Results discussed with patient including worrisome signs and symptoms and strict return precautions, and when to return to the emergency department. They verbalized understanding and feel safe for discharge at this time. Medical Decision Making Medical Decision Making MDM Narrative: 82-year-old female with a past medical history of HLD, HTN, hypothyroid, presenting to the ED complaining of left ear discomfort/ feeling blocked, generalized fatigue/weakness, and feeling off balance/ wobbly x 2 weeks. On exam vital signs stable, NAD, nontoxic appearing, TMs bilaterally WNL, no focal neuro deficits, ambulating with steady gait, no ataxia. Concern for metabolic/infectious etiology vs atypical ACS vs subacute CVA. Low concern for TIA/acute CVA or mastoiditis or cervical dissection. No evidence of otitis media/externa Plan: EKG, labs, UA, head CT, orthostatics Please refer to course for remaining clinical decision making, interpretation of labs/imaging results, and discussions with consultants and/or family members. Differential Diagnosis Differential Diagnoses: The differential diagnosis associated with the presentation includes As above Admission/Observation Consideration of admission/observation: Escalation of care including admission/observation considered Lab Data [facility] Lab Attestation statement: I reviewed the patient's lab results. 01/11/23 11:58 01/11/23 11:59 Labs: Lab Results 01/11/23 01/11/23 01/11/23 Range/Units 11:57 11:58 11:59 WBC 6.3 (4.8-10.8) X10*3/uL RBC 3.94 L (4.20-5.50) X10*6/uL Hgb 12.7 (12.0-16.0) g/dl Hct 36.4 L (37.0-47.0) % MCV 92.4 (80.0-98.0) fL MCH 32.2 (27.0-33.0) pg MCHC 34.9 (31.0-35.0) g/dl RDW 13.0 (11.0-16.0) % Plt Count 256 (160-400) X10*3/uL MPV 9.1 L (9.4-12.3) fL Immature Gran % (Auto) 0.5 H (0.0-0.4) % Neut % (Auto) 73.4 H (45-73) % Lymph % (Auto) 18.5 L (20-40) % [place] % (Auto) 6.5 (2-11) % Eos % (Auto) 0.5 (0-4) % Baso % (Auto) 0.6 (0-2) % Lymph # (Auto) 1.2 (1.2-4.9) X10*3/uL [place] # (Auto) 0.4 (0.1-1.2) X10*3/uL Eos # (Auto) 0.0 (0.0-0.4) X10*3/uL Baso # (Auto) 0.0 (0.0-0.2) X10*3/uL Abs Immat Gran (auto) 0.03 (0.00-0.03) X10*3/uL Absolute Neuts (auto) 4.6 (2.0-8.3) x10*3/uL Absolute Nucleated RBC 0.000 (0.0-0.012) X10*3/uL Nucleated RBC % (auto) 0.0 (0.0-0.2) /100WBC PT (10.0-13.1) SEC INR (0.9-1.1) Sodium 130 L (135-145) mmol/L Potassium 4.4 (3.3-5.1) mmol/L Chloride 96 (96-108) mmol/L Carbon Dioxide 22 (22-29) mmol/L Anion Gap 16 (12-20) BUN 24 H (9-16) mg/dL Creatinine 1.26 (0.5-1.4) mg/dL Estim Creat Clear Calc 38.1 Estimated GFR 41 Random Glucose 98 (60-115) mg/dL Calcium 9.9 (8.4-10.2) mg/dL Magnesium 2.2 (1.6-2.6) mg/dL Total Bilirubin 0.6 (0.0-1.0) mg/dL Direct Bilirubin 0.2 (0.0-0.5) mg/dL AST 18 (5-31) U/L ALT 15 (0-31) U/L Alkaline Phosphatase 47 (39-117) U/L Troponin I High Sens (<3.5-17.0) ng/L Total Protein 7.4 (6.5-8.0) g/dL Albumin 4.4 (3.5-5.0) g/dL Urine Color Yellow Urine Appearance Cloudy Urine pH 6.0 (5.0-9.0) Ur Specific [place] 1.010 (1.005-1.025) Urine Protein Negative (Neg-Trace) mg/dL Urine Glucose (UA) Negative (Negative) mg/dL Urine Ketones Negative (Negative) mg/dL Urine Blood Negative (Negative) Urine Nitrite Negative (Negative) Ur Leukocyte Esterase Large (3+) H (Negative) Urine RBC 3-5 H (0-2) /HPF Urine WBC 11-20 (0-5) /HPF Ur Squamous Epith Cells 6-10 (0-2) /HPF Urine Bacteria Trace (None Seen) Hyaline Casts 6-10 (0-2) /LPF 01/11/23 01/11/23 01/11/23 Range/Units 11:59 11:59 15:00 WBC (4.8-10.8) X10*3/uL RBC (4.20-5.50) X10*6/uL Hgb (12.0-16.0) g/dl Hct (37.0-47.0) % MCV (80.0-98.0) fL MCH (27.0-33.0) pg MCHC (31.0-35.0) g/dl RDW (11.0-16.0) % Plt Count (160-400) X10*3/uL MPV (9.4-12.3) fL Immature Gran % (Auto) (0.0-0.4) % Neut % (Auto) (45-73) % Lymph % (Auto) (20-40) % [place] % (Auto) (2-11) % Eos % (Auto) (0-4) % Baso % (Auto) (0-2) % Lymph # (Auto) (1.2-4.9) X10*3/uL [place] # (Auto) (0.1-1.2) X10*3/uL Eos # (Auto) (0.0-0.4) X10*3/uL Baso # (Auto) (0.0-0.2) X10*3/uL Abs Immat Gran (auto) (0.00-0.03) X10*3/uL Absolute Neuts (auto) (2.0-8.3) x10*3/uL Absolute Nucleated RBC (0.0-0.012) X10*3/uL Nucleated RBC % (auto) (0.0-0.2) /100WBC PT 10.8 (10.0-13.1) SEC INR 0.9 (0.9-1.1) Sodium (135-145) mmol/L Potassium (3.3-5.1) mmol/L Chloride (96-108) mmol/L Carbon Dioxide (22-29) mmol/L Anion Gap (12-20) BUN (9-16) mg/dL Creatinine (0.5-1.4) mg/dL Estim Creat Clear Calc Estimated GFR Random Glucose (60-115) mg/dL Calcium (8.4-10.2) mg/dL Magnesium (1.6-2.6) mg/dL Total Bilirubin (0.0-1.0) mg/dL Direct Bilirubin (0.0-0.5) mg/dL AST (5-31) U/L ALT (0-31) U/L Alkaline Phosphatase (39-117) U/L Troponin I High Sens 5.9 4.7 (<3.5-17.0) ng/L Total Protein (6.5-8.0) g/dL Albumin (3.5-5.0) g/dL Urine Color Urine Appearance Urine pH (5.0-9.0) Ur Specific [place] (1.005-1.025) Urine Protein (Neg-Trace) mg/dL Urine Glucose (UA) (Negative) mg/dL Urine Ketones (Negative) mg/dL Urine Blood (Negative) Urine Nitrite (Negative) Ur Leukocyte Esterase (Negative) Urine RBC (0-2) /HPF Urine WBC (0-5) /HPF Ur Squamous Epith Cells (0-2) /HPF Urine Bacteria (None Seen) Hyaline Casts (0-2) /LPF Radiology Impression Discussion of test interpretation with radiology: I have reviewed the radiologist's reading. Independent Historian Clinical information obtained from an independent historian. History obtained from or confirmed by: Other (Daughter) External Record Review External record reviewed: Inpatient record, Office record, Outpatient record, Prior outpatient labs, Prior outpatient radiology, Primary care record and Outside ED record Tests considered The following testing was considered but not selected: As above Discharge Plan Discharge Clinical Impression: Clogged ear, Dizziness Patient Disposition: Home, Self-Care Prescriptions: No Action Fish Oil 120 mg-180 mg- 60 mg-1,200 mg Capsule,Delayed Release(Dr/Ec) 1 cap PO DAILY Centrum Women 18-400 mg-mcg Tablet 1 tab PO DAILY calcium citrate-vitamin D3 250 mg-5 mcg (200 unit) Tablet 1 tab PO DAILY (DME) T.E.D. Knee [place]ucerz[place] [facility] [place] Instructions .ROUTE .MEDSUPPLY Qty: 12 0RF Rx Instructions: As directed cephalexin 500 mg capsule 500 mg PO Q12H 5 Days Qty: 10 0RF cyanocobalamin (vitamin B-12) 1,000 mcg tablet 1,000 mcg PO DAILY pravastatin 40 mg tablet 40 mg PO BEDTIME olmesartan 5 mg tablet 10 mg PO DAILY alendronate 70 mg tablet 70 mg PO LASSITER levothyroxine 50 mcg tablet 50 mcg PO DAILY@0600
--- NOTE | 2023-01-11 11:03 | ECG_ITS ---
Test Reason : WEAKNESS Blood Pressure : / mmHG Vent. Rate : 083 BPM Atrial Rate : 083 BPM P-R Int : 154 ms QRS Dur : 092 ms QT Int : 336 ms P-R-T Axes : 010 023 062 degrees QTc Int : 394 ms Normal sinus rhythm Nonspecific ST and T wave abnormality Abnormal ECG When compared with ECG of 30-DEC-2022 14:33, Premature ventricular complexes are no longer Present Nonspecific T wave abnormality, worse in Inferior leads Nonspecific T wave abnormality now evident in Lateral leads Referred By: Emily Dalton Electronically Signed By:HARDY VIERA MD
[2023-01-11 12:01] VITALS: BP 140/69; PULSE 81
[2023-01-11 12:02] VITALS: BP 131/72; PULSE 91
[2023-01-11 12:03] VITALS: BP 133/67; PULSE 83
[2023-01-11 12:09] LABS: MANUAL DIFF FLAG NO
[2023-01-11 12:10] LABS: Basophils Percent Auto 0.6 % (0-2); Eosinophils Percent Auto 0.5 % (0-4); Hematocrit 36.4 % (37.0-47.0); Hemoglobin 12.7 g/dl (12.0-16.0); Imm Gran Abs Auto 0.03 X10*3/uL (0.00-0.03); Imm Gran Pct Auto 0.5 % (0.0-0.4); Lymphocytes Absolute Auto 1.2 X10*3/uL (1.2-4.9); Lymphocytes Percent Auto 18.5 % (20-40); Mean Corpuscular HGB Conc 34.9 g/dl (31.0-35.0); Mean Corpuscular Hemoglobin 32.2 pg (27.0-33.0); Mean Corpuscular Volume 92.4 fL (80.0-98.0); Mean Platelet Volume 9.1 fL (9.4-12.3); Monocytes Absolute Auto 0.4 X10*3/uL (0.1-1.2); Monocytes Percent Auto 6.5 % (2-11); Neutrophils Absolute Auto 4.6 x10*3/uL (2.0-8.3); Neutrophils Percent Auto 73.4 % (45-73); Platelet Count 256 X10*3/uL (160-400); Red Blood Count 3.94 X10*6/uL (4.20-5.50); White Blood Count 6.3 X10*3/uL (4.8-10.8)
[2023-01-11 12:17] LABS: Appearance Urine Cloudy; Color Urine Yellow; Glucose Urine UA Negative (Negative); Leukocyte Esterase Urine Large (3+) (Negative); Nitrite Urine Negative (Negative); UMIC TRIGGER UACC YES; Urine Blood Negative (Negative); Urine Ketones Negative (Negative); Urine Protein Negative (Neg-Trace)
[2023-01-11 12:20] LABS: INTERNATIONAL NORM RATIO 0.9 (0.9-1.1); Prothrombin Time 10.8 SEC (10.0-13.1)
[2023-01-11 12:25] LABS: Alanine Aminotransferase 15 U/L (0-31); Albumin Level 4.4 g/dL (3.5-5.0); Alkaline Phosphatase 47 U/L (39-117); Anion Gap 16 (12-20); Aspartate Amino Transferase 18 U/L (5-31); Bilirubin Direct 0.2 mg/dL (0.0-0.5); Bilirubin Total 0.6 mg/dL (0.0-1.0); Blood Urea Nitrogen 24 mg/dL (9-16); Calcium 9.9 mg/dL (8.4-10.2); Carbon Dioxide 22 mmol/L (22-29); Chloride 96 mmol/L (96-108); Creatinine Clr Calc Pharmacy 38.1; Estimated Glomerular Filt Rate 41; Glucose Random 98 mg/dL (60-115); Magnesium 2.2 mg/dL (1.6-2.6); Potassium 4.4 mmol/L (3.3-5.1); Sodium 130 mmol/L (135-145); Total Protein 7.4 g/dL (6.5-8.0)
[2023-01-11 12:32] LABS: Troponin-I High Sensitivity 5.9 ng/L (<3.5-17.0)
[2023-01-11 12:41] LABS: Bacteria Urine Trace (None Seen); UACC Culture Trigger YES
[2023-01-11 13:53] VITALS: BP 127/60; PULSE 78; RESP 18; O2SAT 98
[2023-01-11 15:36] LABS: Troponin-I High Sensitivity 4.7 ng/L (<3.5-17.0)
--- NOTE | 2023-01-11 16:00 | PC.NURSE ---
Discharge instructions reviewed with patient and daughter who verbalized understanding
== END 2023-01-11 16:00 | disposition home or self-care (01) ==
PROVIDERS: Physician Assistant; Emergency Provider Student in an Organized Health Care Education/Training Program; PCP Internal Medicine
DX: H93.8X2 Other specified disorders of left ear (principal); H92.02 Otalgia, left ear; R42 Dizziness and giddiness; E87.1 Hypo-osmolality and hyponatremia; J33.8 Other polyp of sinus; I10 Essential (primary) hypertension; E78.5 Hyperlipidemia, unspecified; Z79.899 Other long term (current) drug therapy; Z87.891 Personal history of nicotine dependence; Z88.5 Allergy status to narcotic agent
CPT/HCPCS: 36415; 70450; 71045; 80048; 80076; 81001; 83735; 84484; 85025; 85610; 87086; 93005; 99284

== ENCOUNTER → 2023-01-11 11:03 | Outpatient (BNV) | payer MEDICARE, BC, SELFPAY | PROVIDERS: Emergency Provider Student in an Organized Health Care Education/Training Program; PCP Internal Medicine; Visit Provider Internal Medicine Cardiovascular Disease | DX: R94.31 Abnormal electrocardiogram [ECG] [EKG] (principal) | CPT/HCPCS: 93010 ==

== ENCOUNTER 2023-11-09 13:32 | Emergency (ER) | payer MEDICARE, BC, SELFPAY ==
--- NOTE | ~2023-11-09 | XR_ITS ---
EXAMINATION: XR CHEST CLINICAL INFORMATION: Weakness. COMPARISON: Chest radiograph 01/11/2023. TECHNIQUE: 2 views of the chest were obtained. FINDINGS: Normal appearance of the cardiomediastinal silhouette. Increased bronchovascular markings with mild bibasilar subsegmental atelectasis. No pleural effusion or pneumothorax. Thoracic spondylosis. No acute osseous findings. XR/XR chest 2V IMPRESSION: Increased bronchovascular markings which could be seen acutely in the context of pulmonary edema or small airways disease. No consolidation or pleural effusion. Mild bibasilar subsegmental atelectasis.
--- NOTE | 2023-11-09 13:34 | ED.GENADULT ---
HPI - General Adult General Chief complaint: Weakness Stated complaint: Lightheaded Time Seen by Provider: 11/09/23 14:48 Source: patient, RN notes reviewed and old records reviewed Mode of arrival: ambulatory Limitations: no limitations History of Present Illness HPI narrative: 83-year-old female with a history of HLD, HTN, hypothyroidism, chronic lower extremity swelling who presents to the ER for evaluation of general malaise and LE heaviness/weakness that started today when she woke up. History is obtained from the patient and her adult daughter who is at the bedside. Patient and daughter report that on Friday she was feeling slightly under the weather, slightly weak. This morning she woke up feeling slightly worse. She states both of her legs felt heavy your than usual and she felt ?off. ? She felt diffusely weak. Her symptoms are better after having eaten breakfast and lunch. She denies any worsening of her chronic lower extremity edema. She denies any focal weakness. She denies any dizziness, headaches, chest pain, shortness for breath, nausea, vomiting, diarrhea, abdominal pain, dysuria, urgency or frequency. MD complaint: Generalized weakness general malaise Onset (ago): day(s) Radiation: non-radiation Severity: moderate Relieving factors: rest Exacerbating factors: movement Associated symptoms: weakness Treatments prior to arrival: none Related Data Home Medications ?Medication ?Instructions ?Recorded ?Confirmed alendronate 70 mg tablet 70 mg PO LASSITER 11/03/20 07/26/21 cyanocobalamin (vitamin B-12) 1,000 mcg PO DAILY 11/03/20 07/26/21 1,000 mcg tablet levothyroxine 50 mcg tablet 50 mcg PO DAILY@0600 11/03/20 07/26/21 olmesartan 5 mg tablet 10 mg PO DAILY 11/03/20 07/26/21 pravastatin 40 mg tablet 40 mg PO BEDTIME 11/03/20 07/26/21 calcium citrate 250 mg 1 tab PO DAILY 11/13/20 07/26/21 calcium-vitamin D3 5 mcg (200 unit) tablet multivitamin-ferrous 1 tab PO DAILY 11/13/20 07/26/21 fumarate-folic acid 18 mg-400 mcg tablet (Centrum Women) gfsic-[id number]-pew-epa-fish oil 120 1 cap PO DAILY 11/13/20 07/26/21 mg-180 mg-60 mg-1,200 mg capsule, (Fish Oil) Previous Rx's ?Medication ?Instructions ?Recorded compr.stocking,knee,long,small #12 ea 11/17/20 (TAgustínENydia Knee [facility] [place]) cephalexin 500 mg capsule 500 mg PO Q12H 5 days #10 caps 11/28/21 cefuroxime axetil 250 mg tablet 250 mg PO BID 7 days #14 tabs 11/09/23 Allergies Allergy/AdvReac Type Severity Reaction Status Date / Time meperidine [From DEMEROL] AdvReac Intermediate Agitated Verified 11/09/23 13:38 Review of Systems Review of Systems: Yes all other systems are reviewed and are negative [facility]LY [facility] Past Medical History Medical History Elevated cholesterol Hypertension Hypothyroidism Surgical History H/O section Hx of appendectomy Social History Social History Household Members: None Housing: House Do you presently have visiting nurse or other home services: No Alcohol intake: former Patient Tobacco Use Status: Former Tobacco user Second Hand Smoke Exposure: No Advance Directives: No Advance Directives Information Provided: No Do you have a plan to hurt others: No Plan service: No Current occupational status: retired Physical Exam ED Vital Signs: Vital Signs - 24 hr 11/09/23 13:37 11/09/23 14:52 Temperature 97.6 F 98.2 F Pulse Rate 99 85 Respiratory Rate 18 12 Blood Pressure 158/71 H 136/64 Pulse Oximetry 97 96 Oxygen Delivery Method Room Air Room Air BMI result Body Mass Index 36.0 Appearance: Alert. Oriented X3. No acute distress. Head: normocephalic, atraumatic. Eyes: Pupils equal, round and reactive to light. ENT: Pharynx normal. No tonsillar swelling or exudate. Neck: Normal inspection. Neck supple. CVS: Normal heart rate and rhythm. Pulses normal. Respiratory: No respiratory distress. Breath sounds normal. Abdomen: Obese, Soft and nontender. +BS x4 Skin: Skin warm and dry. Normal skin color. Normal skin turgor. No rashes. Extremities:Trace lower extremity edema w/ compression stocking in place. No joint swelling. Neuro/psych: Oriented X 3. No motor deficit. No sensory deficit. CN II-XII intact. Normal speech and cognition. Slow but steady gait w/ a cane Course Course Course Narrative: RME performed by Marialuisa Major PA-C. Patient is a 83 year old assigned female at presenting to the emergency department with leg heaviness and weakness. Patient states the over the last few days she has noticed that when she is up and walking around she is very wobbly and weak with bilateral leg swelling. Patient states that when she sits down and rests it gets better. Detailed physical exam and review of systems are deferred to the pre billing clinician. EKG, Labs, imaging, and swabs ordered. Patient placed back in the waiting room pending room availability and results. Medical Decision Making Medical Decision Making [facility] Narrative: 83-year-old female with a history of HLD, HTN, hypothyroidism, chronic lower extremity swelling who presents to the ER for evaluation of general malaise and LE heaviness/weakness that started today when she woke up. On examination she is nonfocal with normal strength and sensation, equal and symmetrical throughout. NIH is 0. She has a steady gait. Denies lightheadedness or dizziness. Main complaint today was general malaise and heaviness in both of her legs which have improved throughout the day today. She has no significant peripheral edema on examination. Her lab workup was unremarkable. Her urinalysis is consistent with infection. Will treat with oral antibiotics. No evidence of sepsis, no leukocytosis or fevers. At this time patient is stable for discharge home with oral antibiotics and outpatient follow-up. Patient and daughter comfortable discharge home. Differential Diagnosis Differential Diagnoses: The differential diagnosis associated with the presentation includes Acute CHF exacerbation, lymphedema, UTI, CVA, viral syndrome Admission/Observation Consideration of admission/observation: Escalation of care including admission/observation considered Elderly female with weakness, considered observation/admission Lab Data [facility] Lab Attestation statement: I reviewed the patient's lab results. No leukocytosis, mild anemia, mild hyponatremia, UA is contaminated although is consistent with infection 11/09/23 13:50 11/09/23 13:50 Labs: Lab Results 11/09/23 11/09/23 11/09/23 Range/Units 13:50 13:51 14:17 WBC 5.4 (4.8-10.8) X10*3/uL RBC 3.85 L (4.20-5.50) X10*6/uL Hgb 12.3 (12.0-16.0) g/dl Hct 35.5 L (37.0-47.0) % MCV 92.2 (80.0-98.0) fL MCH 31.9 (27.0-33.0) pg MCHC 34.6 (31.0-35.0) g/dl RDW 13.1 (11.0-16.0) % Plt Count 264 (160-400) X10*3/uL MPV 9.3 L (9.4-12.3) fL Immature Gran % (Auto) 0.4 (0.0-0.4) % Neut % (Auto) 61.0 (45-73) % Lymph % (Auto) 28.3 (20-40) % [place] % (Auto) 8.7 (2-11) % Eos % (Auto) 0.9 (0-4) % Baso % (Auto) 0.7 (0-2) % Lymph # (Auto) 1.5 (1.2-4.9) X10*3/uL [place] # (Auto) 0.5 (0.1-1.2) X10*3/uL Eos # (Auto) 0.1 (0.0-0.4) X10*3/uL Baso # (Auto) 0.0 (0.0-0.2) X10*3/uL Abs Immat Gran (auto) 0.02 (0.00-0.03) X10*3/uL Absolute Neuts (auto) 3.3 (2.0-8.3) x10*3/uL Absolute Nucleated RBC 0.000 (0.0-0.012) X10*3/uL Nucleated RBC % (auto) 0.0 (0.0-0.2) /100WBC PT 11.3 (11.1-13.3) SEC INR 0.9 (0.9-1.1) APTT 29.7 (26.0-36.8) SEC Sodium 134 L (135-145) mmol/L Potassium 4.3 (3.3-5.1) mmol/L Chloride 103 (96-108) mmol/L Carbon Dioxide 18 L (22-29) mmol/L Anion Gap 17 (12-20) BUN 31 H (9-16) mg/dL Creatinine 1.23 (0.5-1.4) mg/dL Estim Creat Clear Calc 40.1 Estimated GFR 42 Random Glucose 102 (60-115) mg/dL Calcium 10.2 (8.4-10.2) mg/dL Magnesium 1.9 (1.6-2.6) mg/dL Total Bilirubin 0.4 (0.0-1.0) mg/dL AST 16 (5-31) U/L ALT 11 (0-31) U/L Alkaline Phosphatase 55 (39-117) U/L Troponin I High Sens 5.2 (<3.5-17.0) ng/L B-Natriuretic Peptide 40 (<100) pg/mL Total Protein 7.6 (6.5-8.0) g/dL Albumin 4.3 (3.5-5.0) g/dL Urine Color Yellow Urine Appearance Turbid Urine pH 5.5 (5.0-9.0) Ur Specific [place] 1.020 (1.005-1.025) Urine Protein Trace (Neg-Trace) mg/dL Urine Glucose (UA) Negative (Negative) mg/dL Urine Ketones Negative (Negative) mg/dL Urine Blood Moderate (2+) H (Negative) Urine Nitrite Negative (Negative) Ur Leukocyte Esterase Large (3+) H (Negative) Urine RBC 6-10 H (0-2) /HPF Urine WBC >50 H (0-5) /HPF Ur Squamous Epith Cells 11-20 (0-2) /HPF Urine Bacteria 1+ (None Seen) Hyaline Casts 0-2 (0-2) /LPF Influenza Type A (PCR) NEGATIVE (Negative) Influenza Type B (PCR) NEGATIVE (Negative) RSV RNA Qual (PCR) NEGATIVE (Negative) SARS-CoV-2 RNA (RT-PCR) NEGATIVE (Negative) Independent Interpretation I performed an independent interpretation of an: EKG Interpretation: EKG with normal sinus rhythm, sinus arrhythmia, ventricular rate 89 beats per minute, normal QTC, normal IL interval, no ST segment elevations or depressions. Independent Historian Clinical information obtained from an independent historian. History obtained from or confirmed by: Other (Adult daughter at the bedside) External Record Review External record reviewed: Outpatient record, Prior outpatient labs and Prior outpatient radiology Tests considered The following testing was considered but not selected: Considered CT of the head however her neurologic exam is nonfocal. Prescription Management I considered prescription management with: Antibiotic Chronic Conditions Patient?s care impacted by: Hypertension and Other (CHF, COPD) Critical Care Time Critical Care Time Critical Care Time: No Discharge Plan Discharge Clinical Impression: Acute UTI Patient Disposition: Home, Self-Care Instructions: Urinary Tract Infection in Older Adults (ED) Additional Instructions: Your lab workup today was unremarkable. You tested negative for COVID, flu, RSV. Your urine test is positive for infection. Take the prescribed antibiotics as directed, complete the entire course and do not miss any doses Drink plenty of water and stay hydrated. Follow-up with your doctor this week. If you develop new or worsening symptoms call 911 or come back to the ER for further evaluation. Prescriptions: New cefuroxime axetil 250 mg tablet 250 mg PO BID 7 Days Qty: 14 0RF No Action Fish Oil 120 mg-180 mg- 60 mg-1,200 mg Capsule,Delayed Release(Dr/Ec) 1 cap PO DAILY Centrum Women 18-400 mg-mcg Tablet 1 tab PO DAILY calcium citrate-vitamin D3 250 mg-5 mcg (200 unit) Tablet 1 tab PO DAILY (DME) T.E.D. K[id number] See Rx Instructions .ROUTE .MEDSUPPLY Qty: 12 0RF Rx Instructions: As directed cephalexin 500 mg capsule 500 mg PO Q12H 5 Days Qty: 10 0RF cyanocobalamin (vitamin B-12) 1,000 mcg tablet 1,000 mcg PO DAILY pravastatin 40 mg tablet 40 mg PO BEDTIME olmesartan 5 mg tablet 10 mg PO DAILY alendronate 70 mg tablet 70 mg PO LASSITER levothyroxine 50 mcg tablet 50 mcg PO DAILY@0600 Print Language: Telugu
--- NOTE | 2023-11-09 13:35 | ECG_ITS ---
Test Reason : LIGHTHEADED Blood Pressure : / mmHG Vent. Rate : 089 BPM Atrial Rate : 089 BPM P-R Int : 154 ms QRS Dur : 090 ms QT Int : 342 ms P-R-T Axes : -01 025 019 degrees QTc Int : 416 ms Normal sinus rhythm with sinus arrhythmia Nonspecific ST abnormality Abnormal ECG When compared with ECG of 11-JAN-2023 11:47, Nonspecific T wave abnormality, improved in Inferior leads Nonspecific T wave abnormality, improved in Lateral leads Referred By: Marialuisa Major Electronically Signed By:HARDY VIERA MD
[2023-11-09 13:37] VITALS: BP 158/71; PULSE 99; RESP 18; TEMP 36.4; O2SAT 97; BMI 36.0
[2023-11-09 13:56] LABS: MANUAL DIFF FLAG NO
[2023-11-09 13:58] LABS: Basophils Percent Auto 0.7 % (0-2); Eosinophils Absolute Auto 0.1 X10*3/uL (0.0-0.4); Eosinophils Percent Auto 0.9 % (0-4); Hematocrit 35.5 % (37.0-47.0); Hemoglobin 12.3 g/dl (12.0-16.0); Imm Gran Abs Auto 0.02 X10*3/uL (0.00-0.03); Imm Gran Pct Auto 0.4 % (0.0-0.4); Lymphocytes Absolute Auto 1.5 X10*3/uL (1.2-4.9); Lymphocytes Percent Auto 28.3 % (20-40); Mean Corpuscular HGB Conc 34.6 g/dl (31.0-35.0); Mean Corpuscular Hemoglobin 31.9 pg (27.0-33.0); Mean Corpuscular Volume 92.2 fL (80.0-98.0); Mean Platelet Volume 9.3 fL (9.4-12.3); Monocytes Absolute Auto 0.5 X10*3/uL (0.1-1.2); Monocytes Percent Auto 8.7 % (2-11); Neutrophils Absolute Auto 3.3 x10*3/uL (2.0-8.3); Platelet Count 264 X10*3/uL (160-400); Red Blood Count 3.85 X10*6/uL (4.20-5.50); Red Cell Distribution Width 13.1 % (11.0-16.0); White Blood Count 5.4 X10*3/uL (4.8-10.8)
[2023-11-09 14:02] LABS: INTERNATIONAL NORM RATIO 0.9 (0.9-1.1); Prothrombin Time 11.3 SEC (11.1-13.3)
[2023-11-09 14:05] LABS: Partial Thromboplastin Time 29.7 SEC (26.0-36.8)
[2023-11-09 14:18] LABS: Alanine Aminotransferase 11 U/L (0-31); Albumin Level 4.3 g/dL (3.5-5.0); Alkaline Phosphatase 55 U/L (39-117); Anion Gap 17 (12-20); Aspartate Amino Transferase 16 U/L (5-31); Bilirubin Total 0.4 mg/dL (0.0-1.0); Blood Urea Nitrogen 31 mg/dL (9-16); Calcium 10.2 mg/dL (8.4-10.2); Carbon Dioxide 18 mmol/L (22-29); Chloride 103 mmol/L (96-108); Creatinine Clr Calc Pharmacy 40.1; Estimated Glomerular Filt Rate 42; Glucose Random 102 mg/dL (60-115); Magnesium 1.9 mg/dL (1.6-2.6); Potassium 4.3 mmol/L (3.3-5.1); Sodium 134 mmol/L (135-145); Total Protein 7.6 g/dL (6.5-8.0)
[2023-11-09 14:22] LABS: B Type Natriuretic Peptide 40 pg/mL (<100)
[2023-11-09 14:23] LABS: Appearance Urine Turbid; Color Urine Yellow; Glucose Urine UA Negative (Negative); Leukocyte Esterase Urine Large (3+) (Negative); Nitrite Urine Negative (Negative); PH 5.5 (5.0-9.0); UMIC TRIGGER UACC YES; Urine Blood Moderate (2+) (Negative); Urine Ketones Negative (Negative); Urine Protein Trace mg/dL (Neg-Trace)
[2023-11-09 14:27] LABS: Troponin-I High Sensitivity 5.2 ng/L (<3.5-17.0)
[2023-11-09 14:35] LABS: Bacteria Urine 1+ (None Seen); Hyaline Casts Urine 0-2 /LPF (0-2); UACC Culture Trigger YES; WBC Urine >50 /HPF (0-5)
[2023-11-09 14:43] LABS: Influenza A PCR NEGATIVE (Negative); Influenza B PCR NEGATIVE (Negative); Resp Syncy Virus RNA Qual PCR NEGATIVE (Negative); SARS COV2 PCR INHOUSE NEGATIVE (Negative)
[2023-11-09 14:52] VITALS: BP 136/64; PULSE 85; RESP 12; TEMP 36.8; O2SAT 96
[2023-11-09 15:29] VITALS: BP 143/56; PULSE 82; RESP 15; TEMP 36.7; O2SAT 96
== END 2023-11-09 15:30 | disposition home or self-care (01) ==
PROVIDERS: Physician Assistant Medical; Emergency Provider Student in an Organized Health Care Education/Training Program; PCP Internal Medicine
DX: N39.0 Urinary tract infection, site not specified (principal); R42 Dizziness and giddiness; R60.0 Localized edema; R06.02 Shortness of breath; R53.1 Weakness; R94.31 Abnormal electrocardiogram [ECG] [EKG]; Z03.818 Encounter for observation for suspected exposure to other biological agents ruled out; Z79.899 Other long term (current) drug therapy; Z87.891 Personal history of nicotine dependence
CPT/HCPCS: 0241U; 36415; 71046; 80053; 81001; 83735; 83880; 84484; 85025; 85610; 85730; 87086; 87088; 87186; 93005; 99283; 99284

== ENCOUNTER → 2023-11-09 13:35 | Outpatient (BNV) | payer MEDICARE, BC, SELFPAY | PROVIDERS: Emergency Provider Student in an Organized Health Care Education/Training Program; PCP Internal Medicine; Visit Provider Internal Medicine Cardiovascular Disease | DX: I49.9 Cardiac arrhythmia, unspecified (principal) | CPT/HCPCS: 93010 ==

== ENCOUNTER 2024-01-30 19:17 | Emergency (ER) | payer MEDICARE, BC, SELFPAY ==
--- NOTE | ~2024-01-30 | CT_ITS ---
EXAMINATION: CT HEAD WITHOUT CONTRAST CLINICAL INFORMATION: Dizziness, difficulty walking COMPARISON: 01/11/2023 TECHNIQUE: Contiguous axial imaging was performed from the skull base to vertex without intravenous administration of contrast. This CT examination was performed using dose optimization techniques as appropriate, variously including the following: *Automated exposure control *Adjustment of mA and/or kV according to patient size (this includes techniques or standardized protocols for targeted exams where dose is matched to indication/reason for exam; i.e. extremities or head) *Use of iterative reconstruction technique DLP: 657 mGy-cm FINDINGS: There is no evidence of acute intracranial hemorrhage or territorial infarction. No abnormal mass-effect or midline shift is seen. Moran to white matter differentiation is well preserved. No extra-axial fluid collections are identified. The ventricles are normal in size. There is mild periventricular white matter hypoattenuation consistent with chronic small vessel ischemic disease. Mild volume loss is noted. The osseous structures and soft tissues are normal. Mucous retention cyst in the right maxillary sinus. The mastoid air cells are well-aerated. CT/CT head/brain wo IV con IMPRESSION: No acute intracranial pathology.
--- NOTE | 2024-01-30 19:19 | ED.GENADULT ---
HPI - General Adult General Chief complaint: Weakness Stated complaint: feeling faint, weak, tired Time Seen by Provider: 01/30/24 21:05 History of Present Illness ED Provider: Eric COLE narrative: The patient is an 83-year-old who lives on her own. Earlier today she was feeling well enough to drive to the store and go shopping. This evening she was still feeling quite well and ate dinner. After dinner at around 18:30 while watching TV she started to feel as if something was not quite right. Started to feel weak and ?wobbly. ? She says that she did not feel dizzy but felt somewhat unsteady. At one point she felt like she was going to pass out. She also felt like ?my legs way a ton. ? No associated headache, no associated chest pain or shortness of breath, no associated nausea or vomiting. The patient is here with her daughter. The patient's daughter says that the patient has had previous occasions where she has expressed feeling very similar symptoms in the past. The patient was last here in October when she was diagnosed with a UTI and the daughter believes that the patient was expressing similar symptoms at that time. The patient did not have any urinary symptoms on that occasion. She has no urinary symptoms today. Related Data Home Medications ?Medication ?Instructions ?Recorded ?Confirmed alendronate 70 mg tablet 70 mg PO LASSITER 11/03/20 07/26/21 cyanocobalamin (vitamin B-12) 1,000 mcg PO DAILY 11/03/20 07/26/21 1,000 mcg tablet levothyroxine 50 mcg tablet 50 mcg PO DAILY@0600 11/03/20 07/26/21 olmesartan 5 mg tablet 10 mg PO DAILY 11/03/20 07/26/21 pravastatin 40 mg tablet 40 mg PO BEDTIME 11/03/20 07/26/21 calcium citrate 250 mg 1 tab PO DAILY 11/13/20 07/26/21 calcium-vitamin D3 5 mcg (200 unit) tablet multivitamin-ferrous 1 tab PO DAILY 11/13/20 07/26/21 fumarate-folic acid 18 mg-400 mcg tablet (Centrum Women) [id number]-[id number]-epa-fish oil 120 1 cap PO DAILY 11/13/20 07/26/21 mg-180 mg-60 mg-1,[address] gurvinder (Fish Oil) Previous Rx's ?Medication ?Instructions ?Recorded compr.stocking,knee,long,small #12 ea 11/17/20 (Marko Knee Qxzdsk-D-Xgve [facility] [place]) cephalexin 500 mg capsule 500 mg PO Q12H 5 days #10 caps 11/28/21 cefuroxime axetil 250 mg tablet 250 mg PO BID 7 days #14 tabs 11/09/23 cephalexin 500 mg capsule 500 mg PO BID #10 caps 01/31/24 Allergies Allergy/AdvReac Type Severity Reaction Status Date / Time meperidine [From DEMEROL] AdvReac Intermediate Agitated Verified 01/30/24 19:23 Review of Systems Review of Systems: Yes all other systems are reviewed and are negative [facility] Past Medical History Medical History Elevated cholesterol Hypertension Hypothyroidism Surgical History H/O section Hx of appendectomy Social History Social History Household Members: None Housing: House Do you presently have visiting nurse or other home services: No Alcohol intake: former Patient Tobacco Use Status: Former Tobacco user Smoked in Last 30 Days: No Second Hand Smoke Exposure: No Use of substances other than those prescribed or required for medical reasons: No Advance Directives: Yes Advance Directives Information Provided: No Advance Directives on File: No Do you have a plan to hurt others: No Plan service: No Current occupational status: retired Physical Exam ED Vital Signs: Vital Signs - 24 hr 01/30/24 19:21 01/30/24 22:17 01/30/24 22:19 Temperature 98.8 F Pulse Rate 90 84 89 Respiratory Rate 20 Blood Pressure 156/79 H 139/67 142/79 H Pulse Oximetry 95 Oxygen Delivery Method Room Air 01/30/24 22:21 01/30/24 22:21 01/30/24 23:50 Temperature 98.2 F Pulse Rate 89 95 81 Respiratory Rate 18 12 Blood Pressure 139/72 139/72 137/73 Pulse Oximetry 97 99 Oxygen Delivery Method Room Air 01/31/24 01:56 01/31/24 02:09 Temperature 97.7 F 97.7 F Pulse Rate 78 78 Respiratory Rate 18 18 Blood Pressure 141/66 H 141/66 H Pulse Oximetry 98 98 Oxygen Delivery Method Room Air Room Air BMI result Body Mass Index 34.3 Const Other: The patient is an older woman who was awake and alert with a normal mental status. She does not appear obviously ill. HENMT Other: Face is symmetrical. Mucous membranes moist. Tongue is midline. No facial asymmetry Eyes Other: Pupils are round equal, no nystagmus, extraocular movements are intact, conjunctivae are clear, visual hyde are intact to confrontation Neck Other: No JVD Resp Effort & Inspection: normal respiratory effort Auscultation: clear to auscultation bilaterally Cardio Rate: regular rate Rhythm: regular rhythm Heart sounds: S1 normal heart sound present and S2 normal heart sound present GI Other: Abdomen is soft and nontender Skin Other: Skin is dry and unremarkable Neuro Other: The patient is awake and alert. Mental status is normal. She follows commands normally. Eye movements are intact. Visual hyde are intact. The face is symmetrical. Speech is clear and normal. Strength is symmetrical in all 4 extremities. Finger-nose is normal. Heel-huff is normal. Sensation is intact throughout. She was able to walk with her cane. She feels that her walking is not as fluid and normal as usual however. Her daughter confirms this. However she did not seem grossly unsteady in any way. She was a himself in and out of a chair. NIH stroke scale is 0 Extrem Other: No peripheral edema Course Course Course Narrative: This is an RME performed by Betsy Boyer CNP: Additional HPI, ROS, PE not included below will be deferred to primary provider. Patient is an 83-year-old female who presents to the emergency department for feeling of weakness, lightheadedness, near syncope, intermittent brief episodes of nausea, heaviness to the legs with onset approximately 1 hour prior to arrival. She reports that this has happened in the past, unclear etiology. No focal neurological deficits. Plan: Labs, EKG, urinalysis, orthostatic vital signs Reevaluation(s) Reevaluation #1: Noted to be hyponatremic; 126, lower than most recent baseline. Has seen Nephrology in the past, thought to be multifactorial; underlying excess ADH, diuretic usage- d/c'd HCTZ, SIADH, advised on fluid restriction Time: 20:12 Medications Administered Discontinued Medications Generic Name Dose Route Start Last Admin Trade Name Queenie PRN Reason Stop Dose Admin Sodium Chloride 1,000 mls @ 999 mls/hr 01/30/24 21:30 01/30/24 23:06 Ns IV 01/30/24 22:30 Infused .Q1H1M YUDY Infusion Ceftriaxone Sodium 1 gm/ 50 mls @ 100 mls/hr 01/31/24 00:59 01/31/24 01:48 Sodium Chloride IV 01/31/24 01:28 Infused ONCE ONE Infusion Medical Decision Making Medical Decision Making [facility] Narrative: The patient is an 83-year-old female who came to the [facility] because symptoms of feeling weak and wobbly after eating dinner this evening. The patient's daughter says that she has been complaining of similar symptoms over the last 2 weeks and she saw her regular doctor about 11 days ago and was advised to increase her fluid intake. The patient's description of her symptoms is quite vague. On exam she does not have any miserable focal neurological deficit. At most her gait steadiness might be slightly worse than her baseline but she was getting around fairly well with a cane. The patient's urinalysis is mildly abnormal today. She has mild hyponatremia. Other testing is unremarkable. Ultimately I thought it was unlikely that the patient's symptoms were the result of a stroke. Reviewing her records from her last ER visit the documented description of her symptoms are almost identical. Ultimately I felt that she probably did not require hospitalization. She is afebrile. She does not have an elevated white count. IV ceftriaxone and will be given a prescription for cephalexin. Lab Data 01/30/24 19:36 01/30/24 19:36 Labs: Lab Results 01/30/24 01/30/24 01/30/24 Range/Units 19:36 21:24 21:29 WBC 5.1 (4.8-10.8) X10*3/uL RBC 3.52 L (4.20-5.50) X10*6/uL Hgb 11.4 L (12.0-16.0) g/dl Hct 32.0 L (37.0-47.0) % MCV 90.9 (80.0-98.0) fL MCH 32.4 (27.0-33.0) pg MCHC 35.6 H (31.0-35.0) g/dl RDW 13.3 (11.0-16.0) % Plt Count 231 (160-400) X10*3/uL MPV 8.6 L (9.4-12.3) fL Immature Gran % (Auto) 0.2 (0.0-0.4) % Neut % (Auto) 57.1 (45-73) % Lymph % (Auto) 28.8 (20-40) % [place] % (Auto) 11.1 H (2-11) % Eos % (Auto) 1.8 (0-4) % Baso % (Auto) 1.0 (0-2) % Lymph # (Auto) 1.5 (1.2-4.9) X10*3/uL [place] # (Auto) 0.6 (0.1-1.2) X10*3/uL Eos # (Auto) 0.1 (0.0-0.4) X10*3/uL Baso # (Auto) 0.1 (0.0-0.2) X10*3/uL Abs Immat Gran (auto) 0.01 (0.00-0.03) X10*3/uL Absolute Neuts (auto) 2.9 (2.0-8.3) x10*3/uL Absolute Nucleated RBC 0.000 (0.0-0.012) X10*3/uL Nucleated RBC % (auto) 0.0 (0.0-0.2) /100WBC Sodium 126 L (135-145) mmol/L Potassium 4.0 (3.3-5.1) mmol/L Chloride 99 (96-108) mmol/L Carbon Dioxide 19 L (22-29) mmol/L Anion Gap 12 (12-20) BUN 20 H (9-16) mg/dL Creatinine 1.01 (0.5-1.4) mg/dL Estim Creat Clear Calc 47.6 Estimated GFR 53 Random Glucose 91 (60-115) mg/dL Calcium 9.2 D (8.4-10.2) mg/dL Magnesium 1.8 (1.6-2.6) mg/dL Total Bilirubin 0.6 (0.0-1.0) mg/dL AST 20 (5-31) U/L ALT 13 (0-31) U/L Alkaline Phosphatase 50 (39-117) U/L Troponin I High Sens 5.4 6.9 (<3.5-17.0) ng/L C-Reactive Protein < 0.10 (< or = 0.50) mg/dL B-Natriuretic Peptide 46 (<100) pg/mL Total Protein 6.8 (6.5-8.0) g/dL Albumin 4.1 (3.5-5.0) g/dL Urine Color Yellow Urine Appearance Clear Urine pH 6.5 (5.0-9.0) Ur Specific Honor <= 1.005 (1.005-1.025) Urine Protein Negative (Neg-Trace) mg/dL Urine Glucose (UA) Negative (Negative) mg/dL Urine Ketones Negative (Negative) mg/dL Urine Blood Negative (Negative) Urine Nitrite Negative (Negative) Ur Leukocyte Esterase Moderate (2+) H (Negative) Urine RBC 0-2 (0-2) /HPF Urine WBC 6-10 H (0-5) /HPF Ur Squamous Epith Cells 0-2 (0-2) /HPF Urine Bacteria None Seen (None Seen) Hyaline Casts 0-2 (0-2) /LPF Urine Osmolality (373-1093) mosm/kg Ur Random Sodium mmol/L Influenza Type A (PCR) NEGATIVE (Negative) Influenza Type B (PCR) NEGATIVE (Negative) RSV RNA Qual (PCR) NEGATIVE (Negative) SARS-CoV-2 RNA (RT-PCR) NEGATIVE (Negative) 01/30/24 Range/Units 21:38 WBC (4.8-10.8) X10*3/uL RBC (4.20-5.50) X10*6/uL Hgb (12.0-16.0) g/dl Hct (37.0-47.0) % MCV (80.0-98.0) fL MCH (27.0-33.0) pg MCHC (31.0-35.0) g/dl RDW (11.0-16.0) % Plt Count (160-400) X10*3/uL MPV (9.4-12.3) fL Immature Gran % (Auto) (0.0-0.4) % Neut % (Auto) (45-73) % Lymph % (Auto) (20-40) % [place] % (Auto) (2-11) % Eos % (Auto) (0-4) % Baso % (Auto) (0-2) % Lymph # (Auto) (1.2-4.9) X10*3/uL [place] # (Auto) (0.1-1.2) X10*3/uL Eos # (Auto) (0.0-0.4) X10*3/uL Baso # (Auto) (0.0-0.2) X10*3/uL Abs Immat Gran (auto) (0.00-0.03) X10*3/uL Absolute Neuts (auto) (2.0-8.3) x10*3/uL Absolute Nucleated RBC (0.0-0.012) X10*3/uL Nucleated RBC % (auto) (0.0-0.2) /100WBC Sodium (135-145) mmol/L Potassium (3.3-5.1) mmol/L Chloride (96-108) mmol/L Carbon Dioxide (22-29) mmol/L Anion Gap (12-20) BUN (9-16) mg/dL Creatinine (0.5-1.4) mg/dL Estim Creat Clear Calc Estimated GFR Random Glucose (60-115) mg/dL Calcium (8.4-10.2) mg/dL Magnesium (1.6-2.6) mg/dL Total Bilirubin (0.0-1.0) mg/dL AST (5-31) U/L ALT (0-31) U/L Alkaline Phosphatase (39-117) U/L Troponin I High Sens (<3.5-17.0) ng/L C-Reactive Protein (< or = 0.50) mg/dL B-Natriuretic Peptide (<100) pg/mL Total Protein (6.5-8.0) g/dL Albumin (3.5-5.0) g/dL Urine Color Urine Appearance Urine pH (5.0-9.0) Ur Specific Honor (1.005-1.025) Urine Protein (Neg-Trace) mg/dL Urine Glucose (UA) (Negative) mg/dL Urine Ketones (Negative) mg/dL Urine Blood (Negative) Urine Nitrite (Negative) Ur Leukocyte Esterase (Negative) Urine RBC (0-2) /HPF Urine WBC (0-5) /HPF Ur Squamous Epith Cells (0-2) /HPF Urine Bacteria (None Seen) Hyaline Casts (0-2) /LPF Urine Osmolality 215 L (373-1093) mosm/kg Ur Random Sodium 27.0 mmol/L Influenza Type A (PCR) (Negative) Influenza Type B (PCR) (Negative) RSV RNA Qual (PCR) (Negative) SARS-CoV-2 RNA (RT-PCR) (Negative) Independent Interpretation I performed an independent interpretation of an: EKG Interpretation: Sinus rhythm at 82 beats per minute. No definite acute ischemic changes. Discharge Plan Discharge Clinical Impression: Weakness, Hyponatremia, Urinary tract infection Patient Disposition: Home, Self-Care Additional Instructions: Please plan on taking it easy over the next several days. At this point I think I would stop taking the additional fluids that you have been taking over the last several days. This may have been contributing to a low-sodium level in your blood. You may have a urinary tract infection which may be causing some of your symptoms. You have been sent a prescription for an antibiotic called cephalexin. Please start this tomorrow evening (Friday evening) and then take 2 times a day, approximately every 12 hours until done. Please call your regular doctor's office on Friday to make a follow up appointment this week for a recheck and a second opinion. If you feel significantly worse please return to the emergency department. Prescriptions: New cephalexin 500 mg capsule 500 mg PO BID Qty: 10 0RF No Action Fish Oil 120 mg-180 mg- 60 mg-1,200 mg Capsule,Delayed Release(Dr/Ec) 1 cap PO DAILY Centrum Women 18-400 mg-mcg Tablet 1 tab PO DAILY calcium citrate-vitamin D3 250 mg-5 mcg (200 unit) Tablet 1 tab PO DAILY (DME) T.E.D. Knee Gawizi-L-D[facility] See [facility] Instructions .ROUTE .MEDSUPPLY Qty: 12 0RF Rx Instructions: As directed cephalexin 500 mg capsule 500 mg PO Q12H 5 Days Qty: 10 0RF cefuroxime axetil 250 mg tablet 250 mg PO BID 7 Days Qty: 14 0RF cyanocobalamin (vitamin B-12) 1,000 mcg tablet 1,000 mcg PO DAILY pravastatin 40 mg tablet 40 mg PO BEDTIME olmesartan 5 mg tablet 10 mg PO DAILY alendronate 70 mg tablet 70 mg PO LASSITER levothyroxine 50 mcg tablet 50 mcg PO DAILY@0600 Interventions: ED Discharge Assessment Last Done: 01/31/24 02:09 Discharge Date/Time: 01/31/24 02:10 Print Language: Mongolian
[2024-01-30 19:21] VITALS: BP 156/79; PULSE 90; RESP 20; TEMP 37.1; O2SAT 95; BMI 34.3
--- NOTE | 2024-01-30 19:21 | ECG_ITS ---
Test Reason : weakness Blood Pressure : / mmHG Vent. Rate : 082 BPM Atrial Rate : 082 BPM P-R Int : 142 ms QRS Dur : 086 ms QT Int : 338 ms P-R-T Axes : -07 013 044 degrees QTc Int : 394 ms Sinus rhythm with Premature supraventricular complexes Cannot rule out Anterior infarct , age undetermined Abnormal ECG When compared with ECG of 09-NOV-2023 13:39, Premature supraventricular complexes are now Present Referred By: Sima Boyer Electronically Signed By:Rohan Jay
[2024-01-30 19:41] LABS: MANUAL DIFF FLAG NO
[2024-01-30 19:43] LABS: Basophils Absolute Auto 0.1 X10*3/uL (0.0-0.2); Eosinophils Absolute Auto 0.1 X10*3/uL (0.0-0.4); Eosinophils Percent Auto 1.8 % (0-4); Hemoglobin 11.4 g/dl (12.0-16.0); Imm Gran Abs Auto 0.01 X10*3/uL (0.00-0.03); Imm Gran Pct Auto 0.2 % (0.0-0.4); Lymphocytes Absolute Auto 1.5 X10*3/uL (1.2-4.9); Lymphocytes Percent Auto 28.8 % (20-40); Mean Corpuscular HGB Conc 35.6 g/dl (31.0-35.0); Mean Corpuscular Hemoglobin 32.4 pg (27.0-33.0); Mean Corpuscular Volume 90.9 fL (80.0-98.0); Mean Platelet Volume 8.6 fL (9.4-12.3); Monocytes Absolute Auto 0.6 X10*3/uL (0.1-1.2); Monocytes Percent Auto 11.1 % (2-11); Neutrophils Absolute Auto 2.9 x10*3/uL (2.0-8.3); Neutrophils Percent Auto 57.1 % (45-73); Platelet Count 231 X10*3/uL (160-400); Red Blood Count 3.52 X10*6/uL (4.20-5.50); Red Cell Distribution Width 13.3 % (11.0-16.0); White Blood Count 5.1 X10*3/uL (4.8-10.8)
--- NOTE | 2024-01-30 19:50 | MHC.EDTECH ---
Patient blood drawn and urine sample collected all sent to lab .
[2024-01-30 19:56] LABS: Alanine Aminotransferase 13 U/L (0-31); Albumin Level 4.1 g/dL (3.5-5.0); Alkaline Phosphatase 50 U/L (39-117); Anion Gap 12 (12-20); Aspartate Amino Transferase 20 U/L (5-31); Bilirubin Total 0.6 mg/dL (0.0-1.0); Blood Urea Nitrogen 20 mg/dL (9-16); Calcium 9.2 mg/dL (8.4-10.2); Carbon Dioxide 19 mmol/L (22-29); Chloride 99 mmol/L (96-108); Creatinine Clr Calc Pharmacy 47.6; Estimated Glomerular Filt Rate 53; Glucose Random 91 mg/dL (60-115); Magnesium 1.8 mg/dL (1.6-2.6); Sodium 126 mmol/L (135-145); Total Protein 6.8 g/dL (6.5-8.0)
[2024-01-30 20:02] LABS: B Type Natriuretic Peptide 46 pg/mL (<100)
[2024-01-30 20:03] LABS: Troponin-I High Sensitivity 5.4 ng/L (<3.5-17.0)
[2024-01-30 20:25] LABS: Influenza A PCR NEGATIVE (Negative); Influenza B PCR NEGATIVE (Negative); Resp Syncy Virus RNA Qual PCR NEGATIVE (Negative); SARS COV2 PCR INHOUSE NEGATIVE (Negative)
[2024-01-30 21:18] LABS: C Reactive Protein < 0.10 mg/dL (< or = 0.50)
[2024-01-30] MEDS: 0.9 % Sodium Chloride 1,000 ML 999 ML IV (21:29)
[2024-01-30 21:31] LABS: Appearance Urine Clear; Color Urine Yellow; Glucose Urine UA Negative (Negative); Leukocyte Esterase Urine Moderate (2+) (Negative); Nitrite Urine Negative (Negative); PH 6.5 (5.0-9.0); Specific Gravity - Urine <= 1.005 (1.005-1.025); UMIC TRIGGER UACC YES; Urine Blood Negative (Negative); Urine Ketones Negative (Negative); Urine Protein Negative (Neg-Trace)
--- NOTE | 2024-01-30 21:35 | PC.NURSE ---
20gIV placed in the right AC - repeat troponin obtained/sent to lab. IVF administered per provider order.
[2024-01-30 21:36] LABS: Bacteria Urine None Seen (None Seen); Hyaline Casts Urine 0-2 /LPF (0-2); RBC Urine 0-2 /HPF (0-2); Squamous Epithelial Cell Urine 0-2 /HPF (0-2); UACC Culture Trigger YES
--- NOTE | 2024-01-30 21:41 | PC.NURSE ---
urine obtained/sent to lab. pt passed swallow evaluation w/o difficulty. pt currently going to CT at this time. plan of care ongoing.
[2024-01-30 21:59] LABS: Troponin-I High Sensitivity 6.9 ng/L (<3.5-17.0)
[2024-01-30 22:07] LABS: Osmolality Urine 215 mosm/kg (373-1093)
[2024-01-30 22:17] VITALS: BP 139/67; PULSE 84
[2024-01-30 22:19] VITALS: BP 142/79; PULSE 89
[2024-01-30 22:21] VITALS: BP 139/72; PULSE 89; PULSE 95; RESP 18; TEMP 36.8; O2SAT 97
[2024-01-30 23:50] VITALS: BP 137/73; PULSE 81; RESP 12; O2SAT 99
--- NOTE | 2024-01-30 23:57 | PC.NURSE ---
pt reporting another episode of weakness, walked to the bathroom with help 20 minutes prior, IVF finished at that time. pt was sitting up in bed and suddenly felt weak and light headed. ran call khanna. pt was slightly diaphoretic and breathing heavier than before. vitals remain stable and similar to previous sets. episode subsided after a few minutes
[2024-01-31] MEDS: cefTRIAXone sodium 1 GM in 0.9 % Sodium Chloride 50 ML IV (01:07)
[2024-01-31 01:56] VITALS: BP 141/66; PULSE 78; RESP 18; TEMP 36.5; O2SAT 98
[2024-01-31 02:09] VITALS: BP 141/66; PULSE 78; RESP 18; TEMP 36.5; O2SAT 98
== END 2024-01-31 02:10 | disposition home or self-care (01) ==
PROVIDERS: Nurse Practitioner Family; Emergency Provider Emergency Medicine; PCP Internal Medicine
DX: N39.0 Urinary tract infection, site not specified (principal); R53.1 Weakness; E87.1 Hypo-osmolality and hyponatremia; Z03.818 Encounter for observation for suspected exposure to other biological agents ruled out; I10 Essential (primary) hypertension; E78.00 Pure hypercholesterolemia, unspecified; Z87.891 Personal history of nicotine dependence; Z79.02 Long term (current) use of antithrombotics/antiplatelets; Z79.899 Other long term (current) drug therapy
CPT/HCPCS: 0241U; 36415; 70450; 80053; 81001; 83735; 83880; 83935; 84300; 84484; 85025; 86140; 87086; 93005; 96361; 96365; 99284; 99285; J0696

== ENCOUNTER → 2024-01-30 19:21 | Outpatient (BNV) | payer MEDICARE, BC, SELFPAY | PROVIDERS: Emergency Provider Emergency Medicine; PCP Internal Medicine; Visit Provider Internal Medicine Cardiovascular Disease | DX: I47.10 Supraventricular tachycardia, unspecified (principal) | CPT/HCPCS: 93010 ==